=== PATIENT | male | born 1955 | race Caucasian/White ===

== ENCOUNTER 2016-07-28 11:00 | Inpatient (IN) ==
--- NOTE | 2016-07-28 12:04 | Emergency Department Note ---
Disposition Clinical Impression: DVT (deep venous thrombosis), AV fistula Disposition: Admitted As Inpatient Condition: Good Extremity Problem HPI - General Chief complaint: ED Extremity Problem,Nontraumatic Stated complaint: cramping R leg, concern for DVT Time Seen by Provider: 07/28/16 11:12 Source: patient Limitations: no limitations Nursing Notes Reviewed: Yes Vital Signs Reviewed: Yes - History of Present Illness Pain Scale: 7 - Related Data Home Medications Medication Instructions Recorded Confirmed Primidone [Mysoline] 250 mg PO QID 01/08/16 07/28/16 Warfarin [Coumadin] 22.5 mg PO SUTUTHSA 01/08/16 07/28/16 Atorvastatin [Lipitor] 40 mg PO HS 07/28/16 07/28/16 Warfarin [Coumadin] 15 mg PO MOWEFR 07/28/16 07/28/16 Allergies Allergy/AdvReac Type Severity Reaction Status Date / Time No Known Allergies Allergy Verified 02/06/15 09:48 Past Medical History - Past Medical History Medical history: Reports: DVT, hyperlipidemia, pulmonary embolus, seizures Surgical history: Reports: other Psychiatric history: Reports: no psych history - Social History Smoking Status: Never smoker Smokeless Tobacco Status: No Alcohol use: Reports: none Drug use: Reports: none Physical Exam - General Limitations: no limitations General appearance: alert Course Vital Signs Temperature 98.1 F 07/28/16 11:01 Pulse Rate 83 07/28/16 11:01 Respiratory Rate 20 07/28/16 11:01 Blood Pressure 148/84 07/28/16 11:01 O2 Sat by Pulse Oximetry 96 07/28/16 11:01 Temperature 97.8 F 07/28/16 18:47 Pulse Rate 75 07/28/16 18:47 Respiratory Rate 18 07/28/16 18:47 Blood Pressure 191/83 07/28/16 18:47 O2 Sat by Pulse Oximetry 96 07/28/16 18:47 Oxygen Delivery Oxygen Delivery Nasal Cannula Extremity Problem, Nontraumati - [facility] Narrative Medical decision making narrative: I examined this patient and my medical decision-making was reviewed with the INFRASTRUCTURE ADMINISTRATOR/PA/Advanced Practice Nurse/Resident Physician. I agree with the documented findings, disposition and treatment plan as described except to the extent set forth below. Patient presents today was seen by Dr. Graham and myself, high-grade his evaluation and management plan, supervised the care of the patient's stay. Patient's worried that he could have a repeat DVTs been having some pain in his leg he seems more like this going up into the groin area he said this happened after he been mowing. He denies any injuries to the area. He is currently on Coumadin workup to check his INR and then we will scan his leg to rule out a DVT. He is in agreement with this plan. 1224 hrs: Patient's INR is 3.1. Waiting on DVT study. 1418 hrs.: Called from vascular. They finish the DVT study and said he does have an acute DVT in the SFA, tech also noted pulsatile flow in the arterial region around the area he said which looks like it could be a AV fistula, however patient denies ever having any instrumentation or surgery or trauma to that area. Were going to speak with vascular about this, then most likely he will need to come in and see hospitalist his INR is therapeutic at this time. 07/28/16 14:27 - [id number] : 1955 Patient Age: 60 Right lower extremity venous ultrasound appears to show DVT of the SFV and Pop V. SVT of the LSV. Aloso noted is an abnormal finding of the proximal SFV. Appearance of an A/V fistula vs Collateral flow. Initialized on 07/28/16 14:27 - END OF NOTE 1435 hrs.: Spoke with Dr. Plaza who is on for vascular, he said that we will go ahead and bring the patient and discussed to take a look at the images, he recommended starting her on heparin in the [facility]. 1500 hrs.: Patient had EKG performed that showed a sinus rhythm rate of 78 QRS is 104 QTC is 406 has some flattening of the T waves in 23 and aVF, no signs of acute ischemia, compared this with an EKG had done in 2012 showed no changes except for rate. 1530 hrs.: Vascular surgery called back, Dr. Plaza, he suggested to get a CTA of that area which will get ordered for the floor. Start him on heparin, and he will see him. Consult him with admission to hospitalist. Patient updated - Lab Data Result diagrams: 07/28/16 11:55 07/28/16 11:55 Lab Results 07/28/16 07/28/16 07/28/16 Range/Units 11:55 11:55 11:55 WBC 9.9 (4.3-11.1) K/mcL RBC 5.28 (4.19-5.50) M/mcL Hgb 15.0 (12.9-16.9) g/dL Hct 46.7 (37.5-50.1) % MCV 88.4 (83.0-100.0) fL MCH 28.4 (28.0-33.3) pg MCHC 32.1 (31.6-35.5) g/dL RDW 13.4 (11.5-14.5) % Plt Count 268 (140-400) K/mcL MPV 11.7 (9.4-12.4) fL Immature Gran % 0.2 (0-4) % Seg Neutrophils % 75.2 % Lymphocytes % 13.3 % Monocytes % 9.0 % Eosinophils % 1.7 % Basophils % 0.6 % Neutrophils # 7.4 (1.6-8.9) K/mcL Lymphocytes # 1.3 (0.6-4.6) K/mcL Monocytes # 0.9 (0.0-1.3) K/mcL Eosinophils # 0.2 (0.0-0.6) K/mcL Basophils # 0.1 (0.0-0.2) K/mcL Immature Plt Fraction 8.0 H (1.1-6.1) % PT 34.7 H (9.4-12.1) Seconds INR 3.1 APTT (26.0-36.0) Seconds Heparin Anti-Xa, Unfract (0.30-0.70) IU/mL Sodium 139 (136-145) mEq/L Potassium 4.3 (3.5-4.5) mEq/L Chloride 103 (98-109) mEq/L Carbon Dioxide 28 (19-29) mEq/L BUN 21 (8-26) mg/dL Creatinine 1.04 (0.72-1.25) mg/dL Est GFR ( Amer) > 60 (> 60) Est GFR (Non-Af Amer) > 60 (> 60) BUN/Creatinine Ratio 20 (6-26) Glucose 103 H (70-99) mg/dL Calculated Osmolality 291 (280-300) Calcium 9.3 (8.6-10.8) mg/dL Magnesium 2.1 (1.6-2.6) mg/dL 07/28/16 Range/Units 16:52 WBC (4.3-11.1) K/mcL RBC (4.19-5.50) M/mcL Hgb (12.9-16.9) g/dL Hct (37.5-50.1) % MCV (83.0-100.0) fL MCH (28.0-33.3) pg MCHC (31.6-35.5) g/dL RDW (11.5-14.5) % Plt Count (140-400) K/mcL MPV (9.4-12.4) fL Immature Gran % (0-4) % Seg Neutrophils % % Lymphocytes % % Monocytes % % Eosinophils % % Basophils % % Neutrophils # (1.6-8.9) K/mcL Lymphocytes # (0.6-4.6) K/mcL Monocytes # (0.0-1.3) K/mcL Eosinophils # (0.0-0.6) K/mcL Basophils # (0.0-0.2) K/mcL Immature Plt Fraction (1.1-6.1) % PT (9.4-12.1) Seconds INR APTT > 360.0 H* (26.0-36.0) Seconds Heparin Anti-Xa, Unfract 1.15 H* (0.30-0.70) IU/mL Sodium (136-145) mEq/L Potassium (3.5-4.5) mEq/L Chloride (98-109) mEq/L Carbon Dioxide (19-29) mEq/L BUN (8-26) mg/dL Creatinine (0.72-1.25) mg/dL Est GFR ( Amer) (> 60) Est GFR (Non-Af Amer) (> 60) BUN/Creatinine Ratio (6-26) Glucose (70-99) mg/dL Calculated Osmolality (280-300) Calcium (8.6-10.8) mg/dL Magnesium (1.6-2.6) mg/dL
[2016-07-28 12:05] LABS: Basophils # 0.1 K/mcL (0.0-0.2); Basophils % 0.6 %; Eosinophils # 0.2 K/mcL (0.0-0.6); Eosinophils % 1.7 %; Hematocrit 46.7 % (37.5-50.1); Immature Granulocytes % 0.2 % (0-4); Lymphocytes # 1.3 K/mcL (0.6-4.6); Lymphocytes % 13.3 %; Mean Corpuscular HGB Conc 32.1 g/dL (31.6-35.5); Mean Corpuscular Hemoglobin 28.4 pg (28.0-33.3); Mean Corpuscular Volume 88.4 fL (83.0-100.0); Mean Platelet Volume 11.7 fL (9.4-12.4); Monocytes # 0.9 K/mcL (0.0-1.3); Neutrophils # 7.4 K/mcL (1.6-8.9); Platelet Count 268 K/mcL (140-400); Red Blood Count 5.28 M/mcL (4.19-5.50); Red Cell Distribution Width 13.4 % (11.5-14.5); Segmented Neutrophils % 75.2 %
[2016-07-28 12:16] LABS: BUN/Creatinine Ratio 20 (6-26); Blood Urea Nitrogen 21 mg/dL (8-26); Calcium 9.3 mg/dL (8.6-10.8); Carbon Dioxide 28 mEq/L (19-29); Chloride 103 mEq/L (98-109); Glucose 103 mg/dL (70-99); INR 3.1; Magnesium 2.1 mg/dL (1.6-2.6); Osmolality,Calculated 291 (280-300); Potassium 4.3 mEq/L (3.5-4.5); Prothrombin Time 34.7 Seconds (9.4-12.1); Sodium 139 mEq/L (136-145); eGFR For African Americans > 60 (> 60); eGFR For Non-African Americans > 60 (> 60)
[2016-07-28] MEDS ORDERED: *HR* Heparin 5,000 UNIT/ML VIAL IVP ONE (15:26)
[2016-07-28] MEDS ORDERED: *HR* Heparin 5,000 UNIT/ML VIAL IVP PRN ×2 (15:26)
--- NOTE | 2016-07-28 15:31 | Emergency Department Note ---
Disposition Clinical Impression: AV fistula DVT (deep venous thrombosis) Qualifiers: DVT location: lower extremity Affected thrombotic vein of extremity: unspecified vein of extremity Laterality: right Chronicity: acute Qualified Code (s): I82.401 - Acute embolism and thrombosis of unspecified deep veins of right lower extremity Disposition: Admitted As Inpatient Condition: Good Referrals: Eleonora Garcia CNP [Primary Care Provider] - Forms: ED Satisfaction Letter Extremity Problem HPI - General Chief complaint: ED Extremity Problem,Nontraumatic Stated complaint: cramping R leg, concern for DVT Time Seen by Provider: 07/28/16 11:12 Source: patient Limitations: no limitations Nursing Notes Reviewed: Yes Vital Signs Reviewed: Yes - History of Present Illness HPI Narrative: Patient presents today for evaluation of right leg pain and swelling. Patient has a history of PE and recurrent DVT. Patient on Coumadin. Patient was out mowing yesterday when he noticed pain in his right leg. No specific trauma. Pain is worse with movements. Tenderness over the medial serum aspect of the proximal leg. Increased swelling of the lower extremity to the right. No fever no chills no chest pain or shortness of breath or abdominal pain. Evaluate for anticoagulation and DVT. Pain Scale: 7 - Related Data Home Medications Medication Instructions Recorded Confirmed Primidone [Mysoline] 250 mg PO QID 01/08/16 07/28/16 Warfarin [Coumadin] 22.5 mg PO SUTUTHSA 01/08/16 07/28/16 Atorvastatin [Lipitor] 40 mg PO HS 07/28/16 07/28/16 Warfarin [Coumadin] 15 mg PO MOWEFR 07/28/16 07/28/16 Allergies Allergy/AdvReac Type Severity Reaction Status Date / Time No Known Allergies Allergy Verified 02/06/15 09:48 Review of Systems: CONSTITUTIONAL: No weight loss, fever, chills, weakness or fatigue. HEENT: Eyes: No visual changes. Ears, Nose, Throat: No hearing loss, difficulty talking or unable to swallow. SKIN: No rash or itching. CARDIOVASCULAR: No chest pain, chest pressure or chest discomfort. No palpitations or edema. RESPIRATORY: No shortness of breath, cough or sputum. GASTROINTESTINAL: No anorexia, nausea, vomiting or diarrhea. No abdominal pain or blood. GENITOURINARY: No burning on urination or hematuria. NEUROLOGICAL: No headache, dizziness, syncope, paralysis, ataxia, numbness or tingling in the extremities. No change in bowel or bladder control. MUSCULOSKELETAL: Leg pain and swelling Past Medical History - Past Medical History Medical history: Reports: DVT, hyperlipidemia, pulmonary embolus, seizures Surgical history: Reports: other Psychiatric history: Reports: no psych history - Social History Smoking Status: Never smoker Smokeless Tobacco Status: No Alcohol use: Reports: none Drug use: Reports: none Physical Exam General appearance: NAD, conversant Eyes: anicteric sclerae, moist conjunctivae; PERRL HENT: Atraumatic; oropharynx clear with moist mucous membranes and no mucosal ulcerations Neck: Normal inspection; Trachea midline; FROM, supple Lungs: CTA, with normal respiratory effort and no intercostal retractions CV: RRR, no MRGs Abdomen: Soft, non-tender; no rebound or gaurding : No evidence of hernia. No tenderness to palpation of scrotum or testicles. Cremasterics reflex present bilaterally. Extremities: No peripheral edema or extremity lymphadenopathy; poor hygiene Skin: Normal temperature; no rash, ulcers or lesion Psych: Appropriate mood and affect Neuro: alert and oriented to person, place and time - General Limitations: no limitations General appearance: alert Course - Reevaluation(s) Reevaluation #1: DVT with acute on chronic thrombus and concern for AV fistula. Discussed with Dr. Hubbard and Dr. Austin. Heparin ordered. CT a abdomen pelvis down through the middle thigh ordered and verified with client technologies analyst. - Consultations Consultation #1: Discussed with Dr. Price. The patient has an acute on chronic clot in the superficial femoral vein. Patient's anticoagulation is therapeutic so he recommends starting heparin. Recommend getting a CTA to further evaluate for AV fistula of femoral artery at this area secondary to abnormal pulsatile flow. Consultation #2: Discussed with Dr. Austin. Patient accepted for further evaluation as well as anticoagulation management and vascular surgery consult regarding fistula. CAT scan ordered and will need to be seen and evaluated by vascular surgery. Time: 15:50 Vital Signs Temperature 98.1 F 07/28/16 11:01 Pulse Rate 83 07/28/16 11:01 Respiratory Rate 20 07/28/16 11:01 Blood Pressure 148/84 07/28/16 11:01 O2 Sat by Pulse Oximetry 96 07/28/16 11:01 Temperature 98.1 F 07/28/16 11:01 Pulse Rate 73 07/28/16 15:05 Respiratory Rate 20 07/28/16 11:01 Blood Pressure 137/74 07/28/16 15:05 O2 Sat by Pulse Oximetry 99 07/28/16 15:05 Oxygen Delivery Oxygen Delivery Room Air Extremity Problem, Nontraumati - Lab Data Result diagrams: 07/28/16 11:55 07/28/16 11:55 Lab Results 07/28/16 07/28/16 07/28/16 Range/Units 11:55 11:55 11:55 WBC 9.9 (4.3-11.1) K/mcL RBC 5.28 (4.19-5.50) M/mcL Hgb 15.0 (12.9-16.9) g/dL Hct 46.7 (37.5-50.1) % MCV 88.4 (83.0-100.0) fL MCH 28.4 (28.0-33.3) pg MCHC 32.1 (31.6-35.5) g/dL RDW 13.4 (11.5-14.5) % Plt Count 268 (140-400) K/mcL MPV 11.7 (9.4-12.4) fL Immature Gran % 0.2 (0-4) % Seg Neutrophils % 75.2 % Lymphocytes % 13.3 % Monocytes % 9.0 % Eosinophils % 1.7 % Basophils % 0.6 % Neutrophils # 7.4 (1.6-8.9) K/mcL Lymphocytes # 1.3 (0.6-4.6) K/mcL Monocytes # 0.9 (0.0-1.3) K/mcL Eosinophils # 0.2 (0.0-0.6) K/mcL Basophils # 0.1 (0.0-0.2) K/mcL Immature Plt Fraction 8.0 H (1.1-6.1) % PT 34.7 H (9.4-12.1) Seconds INR 3.1 Sodium 139 (136-145) mEq/L Potassium 4.3 (3.5-4.5) mEq/L Chloride 103 (98-109) mEq/L Carbon Dioxide 28 (19-29) mEq/L BUN 21 (8-26) mg/dL Creatinine 1.04 (0.72-1.25) mg/dL Est GFR ( Amer) > 60 (> 60) Est GFR (Non-Af Amer) > 60 (> 60) BUN/Creatinine Ratio 20 (6-26) Glucose 103 H (70-99) mg/dL Calculated Osmolality 291 (280-300) Calcium 9.3 (8.6-10.8) mg/dL Magnesium 2.1 (1.6-2.6) mg/dL
--- NOTE | 2016-07-28 17:07 | Vascular/Endovasc Consult Note ---
Date of Encounter: 07/28/16 Time of Encounter: 16:50 Assessment and Plan (1) AV fistula Status: Suspected The patient underwent a venous duplex today. During the exam he was noted to have possible pulsatile flow in the femoral veins. Concern for an arteriovenous fistula has arisen. He reports that he had an IVC filter placed several years ago. He has been scheduled for a CTA to evaluate for a fistula. (2) DVT (deep venous thrombosis) Status: Acute The patient appears to have an acute on chronic right superficial femoral vein DVT. He is anticoagulated with coumadin. He has pain in the right groin and has been admitted for intravenous heparin. Qualifiers: DVT location: lower extremity Affected thrombotic vein of extremity: femoral Laterality: right Chronicity: acute Qualified Code(s): I82.411 - Acute embolism and thrombosis of right femoral vein (3) Essential hypertension Status: Chronic He was counseled regarding atherosclerotic risk factor reduction. (4) Mixed hyperlipidemia Status: Chronic - History of Present Illness Consult date: 07/31/16 Requesting physician: Loi Graham Consult reason: Deep vein thrombosis, arteriovenous fistula Chief complaint: Right groin pain History of present illness: Mr. Pierre is a 60 year old male with a history of a right lower extremity deep vein thrombosis who has been chronically anticoagulated with coumadin. The patient reports that he developed severe right groin pain yesterday while working in his yard. He reports that he went inside and rested. His symptoms decreased, but did not resolve, so he came to the ER. The patient underwent a venous duplex and was noted to have a acute on chronic right lower extremity DVT. He also was noted to have some pulsatility along the right superficial femoral vein and concern for a right lower extremity arteriovenous fistula arose. The patient reports that he has had an IVC filter placed via the right groin before. He denies any claudication, chest pain or shortness of breath. Past Med Surg Social Fam HX - Past Medical History Medical history: DVT, hyperlipidemia, pulmonary embolus, seizures Psychiatric history: no psych history - Past Surgical History Surgical History: other - Social History Smoking Status: Never smoker Smokeless Tobacco Status: No Alcohol use: none Drug use: none - Family History Mother Living Status: Still Living Age at : 92 Hx Family GI Disorders: Yes (Diverticulitis) Hx Family Musculoskeletal Disorders: Yes (broken hip) Father Living Status: Age at : 88 Cause of : cancer Hx Family Cancer: Yes (kidney cancer) Medications and Allergies Primidone [Mysoline] 250 mg PO QID 01/08/16 [History] Atorvastatin [Lipitor] 40 mg PO HS 07/28/16 [History] HYDROcodone/Acet 5/325 mg [[place] 5-325 mg] 1 tab PO Q6H PRN #12 tablet 07/30/16 [Rx] Rivaroxaban [Xarelto] 15 mg PO BID #42 tablet 07/30/16 [Rx] amLODIPine [Norvasc] 5 mg PO DAILY #30 tablet 07/30/16 [Rx] Allergies No Known Allergies Allergy (Verified 02/06/15 09:48) All Systems Review: A 10-system review of systems was performed and is negative for pertinent findings except as documented above in the HPI. Exam Vital Signs, Last 4 Hours Resp BP 07/28/16 16:32 18 137/74 General: Present: Conversant, No Apparent Distress HEENT: Present: Atraumatic, Normocephaly, Trachea midline, Pupils equal Neck: Absent: JVD, Lymphadenopathy, Left Carotid bruit, Right Carotid bruit Cardiac: Present: Reg Rate and Rhythm, Normal S1 and S2, No Murmur Lungs: Present: Normal Breath Sounds, No Wheeze, Rales, Rhonchi Neuro: Present: Alert and responsive, No focal deficits noted, Cranial nerves grossly intact, Motor nerves grossly intact, Sensory nerves grossly intact Abdomen: Present: Soft, Non-tender. Absent: Masses Vascular: Present: Normal capillary refill, Pulse, normal, Edema (trace right lower extremity), Color/Temperature (warm). Absent: Bruit, Clubbing, Cyanosis Skin: Present: No rashes noted on visualized skin. Absent: Wound/ulcer(s) Musculoskeletal: Present: No Chest Wall Tenderness Consult Discharge Plan - Plan Instructions: Deep Venous Thrombosis (DC), Chronic Hypertension (DC) Additional Instructions: Follow-up with primary care provider as scheduled. Follow-up with urology as scheduled. Follow-up with vascular in 2-3 weeks Referrals: Antony Luna MD [Partnered Physician] - 08/26/16 9:30 am Luis Plaza MD [Partnered Physician] - 08/13/16 2:00 pm Eleonora Garcia CNP [Primary Care Provider] - 08/07/16 3:00 pm Prescriptions: amLODIPine [Norvasc] 5 mg PO DAILY #30 tablet HYDROcodone/Acet 5/325 mg [[place] 5-325 mg] 1 tab PO Q6H PRN #12 tablet PRN Reason: Pain Rivaroxaban [Xarelto] 15 mg PO BID #42 tablet
[2016-07-28] MEDS ORDERED: Ondansetron 4 MG/2 ML VIAL IVP PRN (17:22)
[2016-07-28] MEDS ORDERED: Naloxone 0.4 MG/ML INJ IVP PRN (17:22)
[2016-07-28 18:27] LABS: Activated Partial Thrombo Time > 360.0 Seconds (26.0-36.0)
[2016-07-28] MEDS ORDERED: *HR* HYDROcodone/Acet 5/325 mg TABLET PO PRN (18:30)
--- NOTE | 2016-07-28 18:37 | Internal Med History&Physical ---
Date of Encounter: 07/28/16 Time of Encounter: 18:00 Assessment and Plan (1) DVT (deep venous thrombosis) Current visit: Yes Status: Acute INR was therapeutic at 3. Started on heparin drip. CTA does not show a fistula or aneurysm in R groin. Will most likely need heme consult for guidance in anticoagulation. Bedrest for now. Ramona for pain. Warfarin on hold at this time. Qualifiers: DVT location: lower extremity Affected thrombotic vein of extremity: femoral Laterality: right Chronicity: acute Qualified Code(s): I82.411 - Acute embolism and thrombosis of right femoral vein (2) Left renal mass Current visit: Yes Status: Acute CT shows mass in L kidney. Father from renal cancer. Will get MRI and based on results may need urology consult. (3) Hyperlipidemia Current visit: Yes Status: Chronic Continue Lipitor. Qualifiers: Hyperlipidemia type: mixed hyperlipidemia Qualified Code(s): E78.2 - Mixed hyperlipidemia (4) Seizure disorder Current visit: Yes Status: Chronic Has not had a seizure in 10 years. On Primidone. Seizure precautions. (5) Obesity (BMI 35.0-39.9 without comorbidity) Current visit: Yes Status: Chronic Chronic issue. Internal Medicine - H&P: HPI Chief complaint: R groin pain Admitted From: Emergency Dept Plans for Post Hospital Care: Home History of present illness: Mr. Pierre is a 60 year old male with history of multiple DVTs presented to ED with R groin pain. Pt has had prior DVT in R femoral but states that he was told it resolved (2011). He had associated PE at that time and had filter placed and removed about 5 months later. In 2014 he had DVT in R calf and has been on coumadin since that time. Yesterday he was mowing lawn when he noticed pain in R groin. Pain has progressed and now has swelling. No fever or chills. He is now having pain with ambulation and nothing has made it better. In ED he had ultrasound which showed acute on chronic DVT (despite INR of 3) and question of a femoral aneurysm. He was seen by vascular surgery and sent for CTA. No aneurysm present but has L renal mass (father had renal cell cancer). He has been admitted and is currently on heparin drip. His only complaint at this time is some pain in R groin area. Due to the significance of his DVT which has occurred while therapeutic on coumadin, recurrent nature of DVT and L renal mass he is deemed high risk for possible complications and issues with IV heparin and risk of clot migration. Past Med Surg Social Fam HX - Past Medical History Source: patient Medical history: DVT, hyperlipidemia, pulmonary embolus, seizures Psychiatric history: no psych history - Past Surgical History Surgical History: no surgical history, other - Social History Smoking Status: Never smoker Smokeless Tobacco Status: No Alcohol use: none Drug use: none Occupational status: unemployed Current living situation: Home - Independent Activity Level: Independent ambulation Recent Out of Country Travel Within the Last 8 Weeks: No Exposure or Possible Exposure to Illness During Travel: No - Family History Mother Living Status: Still Living Age at : 92 Hx Family GI Disorders: Yes (Diverticulitis) Hx Family Musculoskeletal Disorders: Yes (broken hip) Father Living Status: Age at : 88 Cause of : cancer Hx Family Cancer: Yes (kidney cancer) Internal Medicine - H&P: Meds Primidone [Mysoline] 250 mg PO QID 01/08/16 [History] Warfarin [Coumadin] 22.5 mg PO SUTUTHSA 01/08/16 [History] Atorvastatin [Lipitor] 40 mg PO HS 07/28/16 [History] Warfarin [Coumadin] 15 mg PO MOWEFR 07/28/16 [History] Allergies No Known Allergies Allergy (Verified 02/06/15 09:48) All Systems PM: A 10-system review of systems was performed and is negative for pertinent findings except as documented above in the HPI. - Constitutional Constitutional: no chills, no fever(s), no weight loss - EENT Eyes: no blurry vision, no change in vision, no pain Ears: no decreased hearing, no ear pain Nose, mouth and throat: no dysphagia, no epistaxis, no nasal congestion, no sinus pain - Cardiovascular Cardiovascular ROS IM: edema, no chest pain, no dyspnea, no dyspnea on exertion , no irregular heart rhythm - Respiratory Respiratory: no cough, no dyspnea, no hemoptysis, no dyspnea on exertion, no chest congestion - Gastrointestinal Gastrointestinal: no change in bowel habits, no constipation, no diarrhea, no dyspepsia, no hematemesis, no hematochezia, no melena - Genitourinary Genitourinary ROS male: no dysuria, no flank pain, no hematuria, no nocturia - Musculoskeletal Musculoskeletal ROS IM: arthralgias - Integumentary Integumentary IM: no erythema, no new lesions, no rash - Neurological Neurological ROS: convulsions, no confusion, no tremor(s) Additional comments: Last seizure 10 years ago. - Psychiatric Psychiatric: no abnormal sleep pattern, no confusion, no depression - Endocrine Endocrine IM: no cold intolerance, no heat intolerance - Hematologic/Lymphatic Hematologic/Lymphatic: as per HPI, no easy bleeding - Allergic/Immunologic Allergic/Immunologic: no itchy eyes, no lip swelling - Constitutional Vitals: Temp Pulse Resp BP Pulse Ox 98.1 F 73 18 137/74 99 07/28/16 11:01 07/28/16 15:05 07/28/16 16:32 07/28/16 16:32 07/28/16 15:05 General appearance: Present: A&O X 3, morbidly obese, pleasant, answers questions appropriately - Head Head exam: Present: atraumatic, normocephalic - Eye Eye exam: Present: EOMI, conjuntiva pink Pupils: Present: PERRL - ENT ENT exam: Present: mucous membranes moist - Neck Neck exam general surgery: Absent: lymphadenopathy, tenderness, nuchal rigidity - Respiratory Respiratory exam: Present: CTAB. Absent: rales, rhonchi, wheezes - Cardiovascular Cardiovascular exam: Present: RRR. Absent: +S4, systolic murmur, tachycardia - GI/Abdominal GI/Abdominal exam: Present: normal bowel sounds, soft. Absent: tenderness Additional comments: Obese - Extremities Exam Extremities exam: Present: tenderness, warm - Neurological Exam Neurological exam: Present: alert, oriented X3, no focal deficits - Psychiatric Psychiatric exam: Present: normal affect, normal mood - Skin Skin exam: Present: dry, warm. Absent: excoriation, rash Internal Med - H&P Results - Labs CBC & Chem 7: 07/28/16 11:55 07/28/16 11:55 - Diagnostic Studies CT scan - abdomen Status: image reviewed by me Additional comments: Reviewed to visualize cysts on bilateral kidneys. - VTE Reasons for not Prescribing Prophylaxis: Not indicated-Anticoagulated or INR therapeutic
[2016-07-28] MEDS ORDERED: Acetaminophen 325 MG TABLET PO PRN (18:57)
[2016-07-28 19:03] LABS: Heparin anti-factor XA UFH 1.15 IU/mL (0.30-0.70)
[2016-07-28] MEDS: Heparin 25,000 UNIT/500 ML D5W 25,000 UNIT/500 ML MLS IVC SCH (22:03)
[2016-07-29 04:29] LABS: Basophils # 0.1 K/mcL (0.0-0.2); Basophils % 0.5 %; Eosinophils # 0.3 K/mcL (0.0-0.6); Eosinophils % 2.6 %; Hematocrit 46.6 % (37.5-50.1); Hemoglobin 14.9 g/dL (12.9-16.9); Immature Granulocytes % 0.3 % (0-4); Lymphocytes # 1.9 K/mcL (0.6-4.6); Lymphocytes % 18.8 %; Mean Corpuscular Volume 90.8 fL (83.0-100.0); Mean Platelet Volume 12.5 fL (9.4-12.4); Monocytes # 0.9 K/mcL (0.0-1.3); Monocytes % 9.2 %; Neutrophils # 6.7 K/mcL (1.6-8.9); Platelet Count 259 K/mcL (140-400); Red Blood Count 5.13 M/mcL (4.19-5.50); Red Cell Distribution Width 13.7 % (11.5-14.5); Segmented Neutrophils % 68.6 %
[2016-07-29 04:39] LABS: INR 2.8; Prothrombin Time 30.6 Seconds (9.4-12.1)
[2016-07-29 04:44] LABS: Alanine Aminotransferase 61 Units/L (0-55); Albumin 3.4 g/dL (3.5-5.0); Albumin/Globulin Ratio 0.9 (1.1-2.2); Alkaline Phosphatase 99 Units/L (38-126); Aspartate Amino Transferase 74 Units/L (5-34); BUN/Creatinine Ratio 22 (6-26); Bilirubin,Total 0.5 mg/dL (0.2-1.2); Blood Urea Nitrogen 22 mg/dL (8-26); Calcium 8.9 mg/dL (8.6-10.8); Carbon Dioxide 29 mEq/L (19-29); Chloride 103 mEq/L (98-109); Globulin 3.9 g/dL (2.4-3.5); Glucose 102 mg/dL (70-99); Magnesium 2.5 mg/dL (1.6-2.6); Osmolality,Calculated 292 (280-300); Potassium 4.1 mEq/L (3.5-4.5); Sodium 139 mEq/L (136-145); Total Protein 7.3 g/dL (6.0-8.3); eGFR For African Americans > 60 (> 60); eGFR For Non-African Americans > 60 (> 60)
[2016-07-29 04:57] LABS: Activated Partial Thrombo Time 188.2 Seconds (26.0-36.0)
[2016-07-29 05:02] LABS: Heparin anti-factor XA UFH 0.59 IU/mL (0.30-0.70)
--- NOTE | 2016-07-29 11:13 | Electrocardiograph Report ---
[place] [id number] Test Date: 2016-07-28 Pat Name: Edward Pierre Department: 104 Room: 3B Gender: M J[employer]er: AM : 1955 Requested By: Radha Morel Order Number: [id number] Reading MD: Lou Owen Measurements Intervals [place] Rate: 77 P: 32 MT: 188 QRS: -11 QRSD: 104 T: 27 QT: 375 QTc: 406 Interpretive Statements SINUS RHYTHM NONSPECIFIC T-WAVE ABNORMALITY Electronically Signed On 07-29-2016 11:11:25 EDT by Lou Owen
[2016-07-29] MEDS: Heparin 25,000 UNIT/500 ML D5W 25,000 UNIT/500 ML MLS IVC SCH (14:02)
--- NOTE | 2016-07-29 16:16 | Urology - Consult Note ---
Date of Encounter: 07/29/16 Time of Encounter: 16:14 - Assessment and Plan (1) Left renal mass Current Visit: Yes Status: Acute Assessment and plan: No urgent need for surgical evaluation. We will have the patient follow-up with me in 3-4 weeks for discussion of options regarding left renal tumor. Urology CN:KAYLAH Consult date: 07/29/16 Reason for consult Urology: Other (left renal mass) Requesting physician: Radha Morel History of present illness: Edward is a 60-year-old male with a history of recent admission secondary to DVT even though he was therapeutic on Coumadin. Patient was found on CT scan followed by MRI to have a left intraparenchymal mass approximately 2 cm. Patient's father of renal cell carcinoma. Past Med Surg Social Fam HX - Past Medical History Medical history: DVT, hyperlipidemia, pulmonary embolus, seizures Psychiatric history: no psych history - Past Surgical History Surgical History: other - Social History Smoking Status: Never smoker Smokeless Tobacco Status: No Alcohol use: none Drug use: none - Family History Mother Living Status: Still Living Age at : 92 Hx Family GI Disorders: Yes (Diverticulitis) Hx Family Musculoskeletal Disorders: Yes (broken hip) Father Living Status: Age at : 88 Cause of : cancer Hx Family Cancer: Yes (kidney cancer) Medications and Allergies Primidone [Mysoline] 250 mg PO QID 01/08/16 [History] Warfarin [Coumadin] 22.5 mg PO SUTUTHSA 01/08/16 [History] Atorvastatin [Lipitor] 40 mg PO HS 07/28/16 [History] Warfarin [Coumadin] 15 mg PO MOWEFR 07/28/16 [History] Allergies No Known Allergies Allergy (Verified 02/06/15 09:48) Review of Systems - Constitutional no chills - EENT Nose, mouth and throat: no dizziness - Cardiovascular no chest pain - Respiratory no cough Exam Initial Vital Signs Temp Pulse Resp BP Pulse Ox 98.1 F 83 20 148/84 96 07/28/16 11:01 07/28/16 11:01 07/28/16 11:01 07/28/16 11:01 07/28/16 11:01 - General physical appearance Present: well developed - ENT Present: normal nares - Neck Present: no masses - Respiratory Present: normal respiratory effort - Cardiovascular Cardiovascular exam IM: RRR - Abdomen Abdomen: Present: soft Urology Results - Labs 07/29/16 03:57 07/29/16 03:57 Abnormal lab results MPV 12.5 fL (9.4-12.4) H 07/29/16 03:57 Immature Plt Fraction 8.0 % (1.1-6.1) H 07/28/16 11:55 PT 30.6 Seconds (9.4-12.1) H 07/29/16 03:57 Glucose 102 mg/dL (70-99) H 07/29/16 03:57 AST 74 Units/L (5-34) H 07/29/16 03:57 ALT 61 Units/L (0-55) H 07/29/16 03:57 Albumin 3.4 g/dL (3.5-5.0) L 07/29/16 03:57 Globulin 3.9 g/dL (2.4-3.5) H 07/29/16 03:57 Albumin/Globulin Ratio 0.9 (1.1-2.2) L 07/29/16 03:57 Diabetes panel 07/29/16 Range/Units 03:57 Sodium 139 (136-145) mEq/L Potassium 4.1 (3.5-4.5) mEq/L Chloride 103 (98-109) mEq/L Carbon Dioxide 29 (19-29) mEq/L BUN 22 (8-26) mg/dL Creatinine 1.01 (0.72-1.25) mg/dL Glucose 102 H (70-99) mg/dL Calcium 8.9 (8.6-10.8) mg/dL AST 74 H (5-34) Units/L ALT 61 H (0-55) Units/L Alkaline Phosphatase 99 (38-126) Units/L Albumin 3.4 L (3.5-5.0) g/dL Calcium panel 07/29/16 Range/Units 03:57 Calcium 8.9 (8.6-10.8) mg/dL Albumin 3.4 L (3.5-5.0) g/dL Pituitary panel 07/29/16 Range/Units 03:57 Sodium 139 (136-145) mEq/L Potassium 4.1 (3.5-4.5) mEq/L Chloride 103 (98-109) mEq/L Carbon Dioxide 29 (19-29) mEq/L BUN 22 (8-26) mg/dL Creatinine 1.01 (0.72-1.25) mg/dL Glucose 102 H (70-99) mg/dL Calcium 8.9 (8.6-10.8) mg/dL Adrenal panel 07/29/16 Range/Units 03:57 Sodium 139 (136-145) mEq/L Potassium 4.1 (3.5-4.5) mEq/L Chloride 103 (98-109) mEq/L Carbon Dioxide 29 (19-29) mEq/L BUN 22 (8-26) mg/dL Creatinine 1.01 (0.72-1.25) mg/dL Glucose 102 H (70-99) mg/dL Calcium 8.9 (8.6-10.8) mg/dL Total Bilirubin 0.5 (0.2-1.2) mg/dL AST 74 H (5-34) Units/L ALT 61 H (0-55) Units/L Alkaline Phosphatase 99 (38-126) Units/L Albumin 3.4 L (3.5-5.0) g/dL All other labs normal. - Imaging CT scan - abdomen: image reviewed CT scan - pelvis: image reviewed Consult Discharge Plan - Plan Referrals: Eleonora Garcia CNP [Primary Care Provider] - 08/07/16 3:00 pm
--- NOTE | 2016-07-29 16:50 | Internal Med Progress Note ---
Date of Encounter: 07/29/16 Time of Encounter: 10:15 - Assessment and plan (1) DVT (deep venous thrombosis) Current Visit: Yes Status: Acute Assessment and plan: Acute on chronic DVT noted to right superficial femoral vein despite being anticoagulated and therapeutic on Coumadin. Continue heparin drip. We will bring hematology on board, appreciate their recommendations concerning anticoagulation therapy. Vascular is also on board, Dr Plaza. Patient stating his pain is currently controlled. On examination, patient's feet are cool to touch with capillary refill proximally 6 seconds bilaterally. Pedal pulses however are strong. Of note, patient stating he is concerned because he is the primary caregiver what of his mother with whom he lives. Patient stating he does have a cousin that is taking care of his mother when he is in the hospital. Qualifiers: DVT location: lower extremity Affected thrombotic vein of extremity: femoral Laterality: right Chronicity: acute Qualified Code(s): I82.411 - Acute embolism and thrombosis of right femoral vein (2) AV fistula Current Visit: Yes Status: Suspected Assessment and plan: Vascular on board (3) Anticoagulated on Coumadin Current Visit: Yes Status: Chronic Assessment and plan: Therapeutic with INR today 2.8. Pharmacy to dose. We will trend. (4) HTN (hypertension) Current Visit: Yes Status: Acute Assessment and plan: Patient is not on antihypertensive medications at home. Patient has been hypertensive/borderline hypertensive throughout this admission, we will initiate amlodipine and monitor. (5) Left renal mass Current Visit: Yes Status: Acute Assessment and plan: Imaging consistent with left renal mass concerning for possible primary renal neoplasm. Renal function is normal. We will check urinalysis. Spoke to urology who have recommended outpatient follow-up in 3-4 weeks. Of note, patient stating his father of "kidney cancer." Patient states that his father was 88 years old when he was diagnosed and chose not to seek treatment. He states that he 3 weeks later. ITS Impressions Abdomen/Pelvis CTA 07/28/16 15:27 IMPRESSION: Question of a mass in the left kidney measuring 3 cm. MRI of the left kidney is recommended for further evaluation. Negative for right femoral artery aneurysm These results were sent to results communications to be called to a license caregiver D/ / Dany Zabala MD / Dany Zabala MD Interpreting Provider: Dany Zabala MD Abdomen MRI 07/28/16 18:56 IMPRESSION: 1. 3 cm lesion in the left upper kidney with component of peripheral enhancement. Underlying primary renal neoplasm cannot be excluded. D/ / 07/28/2016 21:22:16 Anuj Worthington MD / bcarter Interpreting Provider: Anuj Worthington MD (6) Seizure disorder Current Visit: Yes Status: Chronic Assessment and plan: No seizure-like episodes since admission. Continue primidone (7) Obesity (BMI 35.0-39.9 without comorbidity) Current Visit: Yes Status: Chronic - Subjective Interval history: Patient seen and examined. On examination, patient sitting upright in bed watching television. Patient stating his pain is currently controlled and attributes this to "doing nothing." He states he is eating and drinking well. - Constitutional Vitals: Temp Pulse Resp BP Pulse Ox 98.0 F 73 15 143/75 98 07/29/16 15:07 07/29/16 15:07 07/29/16 15:07 07/29/16 15:07 07/29/16 15:07 General appearance: Present: A&O X 3, pleasant, no acute distress, obese, answers questions appropriately - Head Head exam: Present: atraumatic, normocephalic - Eye Eye exam: Present: PERRL, conjuntiva pink, sclera anicteric Pupils: Present: PERRL - Neck Neck exam general surgery: Present: supple, trachea midline. Absent: lymphadenopathy - Respiratory Respiratory exam: Present: CTAB. Absent: accessory muscle use, rales, respiratory distress, rhonchi, wheezes - Cardiovascular Cardiovascular exam: Present: RRR, +S1, +S2. Absent: diastolic murmur, gallop, rubs, systolic murmur - GI/Abdominal GI/Abdominal exam: Present: normal bowel sounds, soft, no peritoneal signs. Absent: distended, tenderness - Extremities Exam Extremities exam: Present: cyanotic, joint swelling, mottling, pedal edema, warm , radial pulses palpable and symetrical. Absent: calf tenderness, normal capillary refill, normal inspection - Expanded Lower Extremities Exam Foot/Toe exam: Present: swelling. Absent: normal inspection Neuro vascular tendon exam: Present: abnormal cap refill, decreased fine/light touch, extremity cold to touch, pallor. Absent: no vascular compromise Gait: Present: not tested/not observed - Neurological Exam Neurological exam: Present: alert, CN II-XII intact, oriented X3, no focal deficits, strengths equal and symetr throughout. Absent: pronater drift, facial droop, speech deficit - Skin Skin exam: Present: dry, intact, normal color, warm Internal Medicine: Result - Labs CBC & Chem 7: 07/29/16 03:57 07/29/16 03:57 Labs: Short CBC 07/29/16 Range/Units 03:57 WBC 9.8 (4.3-11.1) K/mcL Hgb 14.9 (12.9-16.9) g/dL Hct 46.6 (37.5-50.1) % Plt Count 259 (140-400) K/mcL Neutrophils # 6.7 (1.6-8.9) K/mcL BMP 07/29/16 03:57 Sodium 139 Potassium 4.1 Chloride 103 Carbon Dioxide 29 BUN 22 Creatinine 1.01 Glucose 102 H Calcium 8.9 Liver Function 07/29/16 Range/Units 03:57 Total Bilirubin 0.5 (0.2-1.2) mg/dL AST 74 H (5-34) Units/L ALT 61 H (0-55) Units/L Alkaline Phosphatase 99 (38-126) Units/L Albumin 3.4 L (3.5-5.0) g/dL - ABG Interpretation ABG results: PT/INR, D-dimer PT 30.6 Seconds (9.4-12.1) H 07/29/16 03:57 - VTE Reasons for not Prescribing Prophylaxis: Not indicated-Anticoagulated or INR therapeutic Consult Discharge Plan - Plan Referrals: Antony Luna MD [Partnered Physician] - 08/26/16 9:30 am Eleonora Garcia CNP [Primary Care Provider] - 08/07/16 3:00 pm
--- NOTE | 2016-07-29 17:43 | Oncology Inp Consult Note ---
Date of Encounter: 07/30/16 Time of Encounter: 17:00 Assessment and Plan (1) DVT (deep venous thrombosis) Status: Acute Assessment and plan: Right superficial femoral vein-recurrent on therapeutic INR while on coumadin. Hx PE/DVT '12 has been on coumadin since?, s/p filter placement/removal. For halfway anticoagulation transition to xarelto. Start with 15mg BID then 20 daily dose. Risk benefits of bleeding vs recurrent thrombosis reviewed. Left kidney mass on CT/MRI imaging-intervention as an out patient, due to ac DVT needing anticoagulation. F/U as an outpatient in clinic. Discussed with medical staff Qualifiers: DVT location: lower extremity Affected thrombotic vein of extremity: femoral Laterality: right Chronicity: acute Qualified Code(s): I82.411 - Acute embolism and thrombosis of right femoral vein - Data of Consult Requesting Physician: Radha Rodríguez Primary Care Provider: Eleonora Garcia CNP - Consult Narrative Reason for consult: DVT, recurrent, kidney mass History of present illness: Mr. Pierre is a 60 year old male with medical history significant for deep venous thrombosis, history of PE, seizure disorder, obesity, status post a prior IVC filter placement, was on Coumadin with therapeutic INR was noted to have acute right superficial femoral vein thrombosis due to pain patient started heparin, there was a concern of AV fistula due to pulsatile femoral vein /prior filter and vascular surgery is being consulted. INR since admission has been from 2.8-3. Patient underwent abdomen and pelvis CT angiogram that did not show any arterial abnormalities there was a question of left kidney mass measuring 3 cm in size MRI of the kidney was recommended that showed a 3 cm left upper kidney mass with peripheral enhancement suggestive of renal neoplasm. Urology has been consulted to further evaluate the mass. Hematology consulted for further recommendations on anti-coagulation due to DVT on therapeutic INR with Coumadin. He denies pain since he is on heparin. He reports that his filter was removed yrs ago. Denies SOB/chest pain Past Med Surg Social Fam HX - Past Medical History Medical history: DVT, hyperlipidemia, pulmonary embolus, seizures Psychiatric history: no psych history - Past Surgical History Surgical History: other - Social History Smoking Status: Never smoker Smokeless Tobacco Status: No Alcohol use: none Drug use: none - Family History Mother Living Status: Still Living Age at : 92 Hx Family GI Disorders: Yes (Diverticulitis) Hx Family Musculoskeletal Disorders: Yes (broken hip) Father Living Status: Age at : 88 Cause of : cancer Hx Family Cancer: Yes (kidney cancer) Medications and Allergies Primidone [Mysoline] 250 mg PO QID 01/08/16 [History] Warfarin [Coumadin] 22.5 mg PO SUTUTHSA 01/08/16 [History] Atorvastatin [Lipitor] 40 mg PO HS 07/28/16 [History] Warfarin [Coumadin] 15 mg PO MOWEFR 07/28/16 [History] Allergies No Known Allergies Allergy (Verified 02/06/15 09:48) Review of systems: as in HPI otherwise neg Oncology - Exam - Constitutional Vitals: Temp Pulse Resp BP Pulse Ox 98.0 F 73 15 143/75 98 07/29/16 15:07 07/29/16 15:07 07/29/16 15:07 07/29/16 15:07 07/29/16 15:07 General appearance: obese - Head Head exam: Present: atraumatic - Eye Eye exam: Present: sclera anicteric - ENT ENT exam: Present: mucous membranes moist - Neck Neck exam: Present: normal inspection - Respiratory Respiratory exam: Present: CTAB - Cardiovascular Cardiovascular exam: Present: +S1, +S2 - GI/Abdominal GI/Abdominal exam: Present: normal bowel sounds, soft - Extremities Exam Extremities exam: Present: pedal edema - Neurological Exam Neurological exam: Present: alert, CN II-XII intact, oriented X3 - Psychiatric Psychiatric exam: Present: normal affect Oncology - Results - Labs Labs: Short CBC 07/29/16 Range/Units 03:57 WBC 9.8 (4.3-11.1) K/mcL Hgb 14.9 (12.9-16.9) g/dL Hct 46.6 (37.5-50.1) % Plt Count 259 (140-400) K/mcL Neutrophils # 6.7 (1.6-8.9) K/mcL BMP 07/29/16 03:57 Sodium 139 Potassium 4.1 Chloride 103 Carbon Dioxide 29 BUN 22 Creatinine 1.01 Glucose 102 H Calcium 8.9 Liver Function 07/29/16 Range/Units 03:57 Total Bilirubin 0.5 (0.2-1.2) mg/dL AST 74 H (5-34) Units/L ALT 61 H (0-55) Units/L Alkaline Phosphatase 99 (38-126) Units/L Albumin 3.4 L (3.5-5.0) g/dL - Imaging and Cardiology CT scan - abdomen Status: image reviewed by me Consult Discharge Plan - Plan Referrals: Antony Luna MD [Partnered Physician] - 08/26/16 9:30 am Eleonora Garcia CNP [Primary Care Provider] - 08/07/16 3:00 pm
[2016-07-29] MEDS: amLODIPine 5 MG TABLET PO SCH (18:52)
[2016-07-29 19:00] LABS: Activated Partial Thrombo Time > 360.0 Seconds (26.0-36.0)
[2016-07-29 19:16] LABS: Heparin anti-factor XA UFH 1.42 IU/mL (0.30-0.70)
[2016-07-29] MEDS: *HR* Rivaroxaban 15 MG TABLET PO SCH (19:58)
[2016-07-30 05:54] LABS: Bilirubin,Urine Negative (Negative); Blood,Urine Negative (Negative); Clarity,Urine Clear (Clear); Color,Urine Yellow (Yellow); Glucose,Urine (UA) Normal (Normal); Ketones,Urine Negative (Negative); Leukocyte Esterase,Urine Negative (Negative); Nitrite,Urine Negative (Negative); Protein,Urine Negative (Neg-Trace); Specific Gravity,Urine > 1.030 (1.010-1.025); Urobilinogen,Urine Normal (Normal)
--- NOTE | 2016-07-30 07:11 | Vascular/Endovas Progress Note ---
Date of Encounter: 07/30/16 Time of Encounter: 17:00 - Assessment and plan (1) AV fistula Status: Suspected The patient underwent a venous duplex which revealed a chronic right superficial femoral vein DVT with some acute findings as well. He has been admitted and is on heparin. His duplex was also concerning for a possible arteriovenous fistula. His CT scan does not reveal a significant arteriovenous fistula. However, he is noted to have bilateral renal cysts and a left renal mass. Urology is currently evaluating the patient. He may require an IVC filter due need for surgery. (2) DVT (deep venous thrombosis) Status: Acute The patient appears to have an acute on chronic right superficial femoral vein DVT. He is anticoagulated with coumadin. He has pain in the right groin and has been admitted for intravenous heparin. Qualifiers: DVT location: lower extremity Affected thrombotic vein of extremity: femoral Laterality: right Chronicity: acute Qualified Code(s): I82.411 - Acute embolism and thrombosis of right femoral vein - Subjective Interval history: The patient reports that his right groin pain has decreased today. He denies any acute issues. He denies chest pain or shortness of breath. Vital Signs, Last 4 Hours Temp Pulse Resp BP Pulse Ox 07/30/16 03:14 98.1 F 69 18 164/85 96 - Physical Examination General: Present: Conversant, No Apparent Distress HEENT: Present: Atraumatic, Pupils equal Neck: Absent: JVD, Tracheal deviation Cardiac: Present: Reg Rate and Rhythm, Normal S1 and S2 Lungs: Present: Normal Breath Sounds, No Wheeze, Rales, Rhonchi Neuro: Present: Alert and responsive, No focal deficits noted, Motor nerves grossly intact, Sensory nerves grossly intact Vascular: Present: Normal capillary refill, Pulse, normal, Edema (trace right lower extermity). Absent: Clubbing, Cyanosis Abdomen: Present: Soft, Non-tender Skin: Present: No rashes noted on visualized skin Musculoskeletal: Present: No Chest Wall Tenderness - VTE Reasons for not Prescribing Prophylaxis: Not indicated-Anticoagulated or INR therapeutic Results 07/29/16 03:57 07/29/16 03:57 Lab Results, Last 24 hours 07/29/16 07/29/16 11:29 17:31 APTT 30.1 D > 360.0 H* D - Imaging / Other Tests CT/CTA: report reviewed, image reviewed Consult Discharge Plan - Plan Instructions: Deep Venous Thrombosis (DC), Chronic Hypertension (DC) Additional Instructions: Follow-up with primary care provider as scheduled. Follow-up with urology as scheduled. Follow-up with vascular in 2-3 weeks Referrals: Antony Luna MD [Partnered Physician] - 08/26/16 9:30 am Luis Plaza MD [Partnered Physician] - 08/13/16 2:00 pm Eleonora Garcia CNP [Primary Care Provider] - 08/07/16 3:00 pm Prescriptions: amLODIPine [Norvasc] 5 mg PO DAILY #30 tablet HYDROcodone/Acet 5/325 mg [[place] 5-325 mg] 1 tab PO Q6H PRN #12 tablet PRN Reason: Pain Rivaroxaban [Xarelto] 15 mg PO BID #42 tablet
[2016-07-30 07:31] VITALS: BP 149/82
[2016-07-30] MEDS: *HR* Rivaroxaban 15 MG TABLET PO SCH (07:38)
[2016-07-30] MEDS: amLODIPine 5 MG TABLET PO SCH (07:38)
--- NOTE | 2016-07-30 09:59 | Discharge Summary ---
Date of Encounter: 07/30/16 Time of Encounter: 09:00 - Discharge Diagnosis (1) DVT (deep venous thrombosis) Priority: Primary Status: Acute Comments: Acute on chronic DVT noted to right superficial femoral vein despite being anticoagulated and therapeutic on Coumadin. Iniitally treated with heparin drip while admitted. Brought hematology on board who recommended stopping Coumadin and initiating Xarelto. Vascular was also onboard- followup outpatient. Qualifiers: DVT location: lower extremity Affected thrombotic vein of extremity: femoral Laterality: right Chronicity: acute Qualified Code(s): I82.411 - Acute embolism and thrombosis of right femoral vein (2) AV fistula Priority: Primary Status: Ruled-out (3) Anticoagulated on Coumadin Priority: Secondary Status: Chronic (4) HTN (hypertension) Priority: Primary Status: Acute Comments: Patient is not on antihypertensive medications at home. Patient has been hypertensive/borderline hypertensive throughout this admission so amlodipine was added to his regimen. BP improved at time of discharge. Recommend daily BP checks at home, keeping a log, and following up outpatient. (5) Left renal mass Priority: Primary Status: Acute Comments: Imaging consistent with left renal mass concerning for possible primary renal neoplasm. Renal function is normal. Urinalysis unremarkable. Spoke to urology who have recommended outpatient follow-up in 3-4 weeks. Of note, patient stating his father of "kidney cancer." Patient states that his father was 88 years old when he was diagnosed and chose not to seek treatment. He states that he 3 weeks later. ITS Impressions Abdomen/Pelvis CTA 07/28/16 15:27 IMPRESSION: Question of a mass in the left kidney measuring 3 cm. MRI of the left kidney is recommended for further evaluation. Negative for right femoral artery aneurysm These results were sent to results communications to be called to a license caregiver D/ / Dany Zabala MD / Dany Zabala MD Interpreting Provider: Dany Zabala MD Abdomen MRI 07/28/16 18:56 IMPRESSION: 1. 3 cm lesion in the left upper kidney with component of peripheral enhancement. Underlying primary renal neoplasm cannot be excluded. D/ / 07/28/2016 21:22:16 Anuj Worthington MD / jim Interpreting Provider: Anuj Worthington MD (6) Seizure disorder Priority: Secondary Status: Chronic Comments: no seizure like activity while admitted. Continue primidone (7) Obesity (BMI 35.0-39.9 without comorbidity) Priority: Secondary Status: Chronic - Discharge Medications Prescriptions: amLODIPine [Norvasc] 5 mg PO DAILY #30 tablet HYDROcodone/Acet 5/325 mg [[place] 5-325 mg] 1 tab PO Q6H PRN #12 tablet PRN Reason: Pain Rivaroxaban [Xarelto] 15 mg PO BID #42 tablet Home Medications: Primidone [Mysoline] 250 mg PO QID 01/08/16 [History] Atorvastatin [Lipitor] 40 mg PO HS 07/28/16 [History] HYDROcodone/Acet 5/325 mg [[place] 5-325 mg] 1 tab PO Q6H PRN #12 tablet 07/30/16 [Rx] Rivaroxaban [Xarelto] 15 mg PO BID #42 tablet 07/30/16 [Rx] amLODIPine [Norvasc] 5 mg PO DAILY #30 tablet 07/30/16 [Rx] Allergies/Adverse Reactions: Allergies No Known Allergies Allergy (Verified 02/06/15 09:48) Procedures/tests Complete & Pending: Procedures Performed prior 72 hours Category Date Time Status ECG 12 lead ECG [ECG] Routine Y 07/28/16 11:18 Completed Date of admission: 07/28/16 19:13 Primary care physician: Eleonora Garcia CNP Consults: 07/29/16 08:35 Consult to Urology [CONS] Routine Consulting Provider: Urology Susana Reason for Consult: possible primary left renal neoplasm. new. here for R groin pain/DVTs Time Notified: 08:36 Call Completed: Yes 07/29/16 16:41 Consult to Oncology Hematology [CONS] Routine Consulting Provider: Dago Banegas Jr Reason for Consult: Patient with hx multiple DVTs/PE. Therapeutic on Coumadin but has another new DVT. currently on heparin gtt. Please advise. Vascular onboard too. Also, new mass to kidney- following up outpatient with Urology. Time Notified: 16:44 Call Completed: Yes 07/29/16 18:09 Consult to Outsole Paraffiner [CONS] Routine Reason for SW Consult: want to start xarelto. likely dc tomorrow (07/30) Discharging clinician: Radha Morel Anticipated date of discharge: 07/30/16 - Patient Status Disposition: Home, Self-Care Condition: Good Functional capacity at discharge: independent ambulation Overall status at discharge: patient is back to baseline - Discharge Instructions Follow Up With: Antony Luna MD [Partnered Physician] - 08/26/16 9:30 am Eleonora Garcia CNP [Primary Care Provider] - 08/07/16 3:00 pm Luis Plaza MD [Partnered Physician] - Additional Instructions: Follow-up with primary care provider as scheduled. Follow-up with urology as scheduled. Follow-up with vascular in 2-3 weeks - Diet and Activity Activity: increase activity as tolerated Diet: low salt diet Hospital course: Mr. Pierre is a 60 year old male with past medical history of multiple DVTs, history of PE on Coumadin, seizure disorder. Patient presented to the emergency room for chief complaint of right-sided groin pain. Patient had a prior DVT to his right from oral but was told it was resolved for years prior to presentation. He also had a filter in place that was removed. He had another DVT to his right calf in 2014 and had been on Coumadin since. Patient stating he was mowing the lawn when he started to notice right groin pain. The pain progressed and then his leg started to swell. He denied fever or chills. Ultrasound in the emergency department revealed acute on chronic DVT despite him being therapeutic on Coumadin. There is also question of a possible from oral aneurysm and vascular surgery was brought on board. Patient was started on a heparin drip and then admitted to the hospitalist service for further evaluation and management. Abdominal pelvic CTA with incidental finding of a left kidney mass and was negative for a femoral artery aneurysm. Hematology was brought on board as the patient sustained another DVT while therapeutic on Coumadin and the decision was made to stop his Coumadin and start him on Xarelto. Urology was brought on board for the renal mass and cleared him for outpatient follow-up in 3-4 weeks. Renal functioning was normal and urinalysis was unremarkable. Of note, patient stating his father of kidney cancer at the age of 88. Patient was also noted to be hypertensive throughout this admission. Patient is not on any antihypertensive medications at home and she was started on amlodipine and blood pressure improved prior to disposition. He was instructed to check his blood pressure daily at home and keep a log for his primary care team. Of note, patient stating his pain was controlled throughout this admission and he did not use any pain medication. He stated that his leg was painful with ambulation and movement so he was sent home with a short supply of pain medication. He was discharged home in stable condition with close outpatient follow-up recommended. Also of note, he was started on Xarelto 15mg BID for 21 days- he will need to see an outpatient provider prior to 3 weeks out to transition to 20mg daily. ITS Impressions Abdomen/Pelvis CTA 07/28/16 15:27 IMPRESSION: Question of a mass in the left kidney measuring 3 cm. MRI of the left kidney is recommended for further evaluation. Negative for right femoral artery aneurysm These results were sent to results communications to be called to a license caregiver D/ / Dany Zabala MD / Dany Zabala MD Interpreting Provider: Dany Zabala MD Abdomen MRI 07/28/16 18:56 IMPRESSION: 1. 3 cm lesion in the left upper kidney with component of peripheral enhancement. Underlying primary renal neoplasm cannot be excluded. D/ / 07/28/2016 21:22:16 Anuj Worthington MD / jim Interpreting Provider: Anuj Worthington MD - Time Spent with Patient Total time spent providing and/or coordinating discharge services: - Constitutional Vitals: Temp Pulse Resp BP Pulse Ox 97.6 F 67 18 149/82 95 07/30/16 07:30 07/30/16 07:30 07/30/16 07:30 07/30/16 07:30 07/30/16 07:38 General appearance: Present: A&O X 3, pleasant, no acute distress, obese, answers questions appropriately - Head Head exam: Present: atraumatic, normocephalic - Eye Eye exam: Present: PERRL, conjuntiva pink, sclera anicteric Pupils: Present: PERRL - Neck Neck exam general surgery: Present: supple, trachea midline. Absent: lymphadenopathy - Respiratory Respiratory exam: Present: CTAB. Absent: accessory muscle use, rales, respiratory distress, rhonchi, wheezes - Cardiovascular Cardiovascular exam: Present: RRR, +S1, +S2. Absent: diastolic murmur, gallop, rubs, systolic murmur - GI/Abdominal GI/Abdominal exam: Present: normal bowel sounds, soft, no peritoneal signs. Absent: distended, tenderness - Extremities Exam Extremities exam: Present: pedal edema, warm, radial pulses palpable and symetrical. Absent: calf tenderness, cyanotic, normal capillary refill - Expanded Lower Extremities Exam Lower Leg exam: Absent: normal inspection Ankle exam: Absent: normal inspection Foot/Toe exam: Absent: normal inspection Neuro vascular tendon exam: Present: abnormal cap refill, decreased fine/light touch, extremity cold to touch. Absent: no vascular compromise - Neurological Exam Neurological exam: Present: alert, CN II-XII intact, oriented X3, no focal deficits, strengths equal and symetr throughout. Absent: pronater drift, facial droop, speech deficit - Skin Skin exam: Present: dry, intact, normal color, warm - VTE Reasons for not Prescribing Prophylaxis: Not indicated-Anticoagulated or INR therapeutic
--- NOTE | 2016-07-30 18:05 | Venous Imaging Report ---
LE Venous Duplex Patient Name:Edward Pierre Order Number:[id number] Procedure Date:07/28/2016 Date:1955ge:60 yrs Gender:Male Location:[facility] Room #: ER4 Inseminator:Finn Meza RDCS Referring MD:Loi Graham DO juvenile justice specialist:Eleonora Garcia, PLATFORM MATERIAL HANDLER MANAGER Reading MD:Mick Calixto MD , FACS Primary Indications:Pain and swelling Secondary Indications: Risk Factors Yes/No Anticoagulants Yes Hx of DVT Yes Winsome Filter Yes Impressions: Lower extremity abnormal deep exam: right superficial femoral vein demonstrates acute thrombosis. Lower extremity abnormal superficial exam: right lesser saphenous vein demonstrates acute thrombosis. Lower extremity abnormal deep exam: right popliteal vein demonstrates chronic thrombosis. Left lower extremity: normal contralateral exam. Recommendations: After imaging the patient returned to their room. Note abnormal flow at proximal SFV level. Possible A/V fistula d/t what appears to be pusitile flow within the thrombus vs collateral flow. Critical findings reported to Dr. Salinas by phone by Finn Meza RDCS. Findings Venous Duplex Results: Right: Venous imaging of the lower extremity reveals full patency and normal vessel compressibility of the right posterior tibial, right peroneal and right great saphenous. Doppler signals in the evaluated veins were normal. The right distal iliac demonstrates a compressible vein. Flow was pulsatile and it did augment. The right common femoral demonstrates a compressible vein. Flow was pulsatile and it did augment. There is a chronic partially occlusive thrombus seen in the right prox superficial femoral. It demonstrates a partially compressible vein. Flow was pulsatile and it did augment. The right popliteal demonstrates a partially compressible vein. Flow was phasic and it did augment. There is an acute occlusive thrombus seen in the right lesser saphenous. It demonstrates an incompressible vein. Flow was absent and it did not augment. There is an acute occlusive thrombus seen in the right mid superficial femoral. It demonstrates an incompressible vein. Flow was absent and it did not augment. Abnormal flow in proximal SFV. Left: Venous imaging of the lower extremity reveals full patency and normal vessel compressibility of the left common femoral. Doppler signals in the evaluated veins were normal. Prior Study: No prior study available for comparison. Lower Extremity Venous Duplex Side Vein Compress Spontaneous Flow Augment Diameter (cm) Depth (cm) Right Distal Iliac Normal yes Pulsatile yes Right Common Femoral Normal yes Pulsatile yes Right Prox Superficial Femoral Partial no Pulsatile yes Right Popliteal Partial yes Phasic yes Right Posterior Tibial Normal Yes Phasic Yes Right Peroneal Normal Yes Phasic Yes Right Great Saphenous Normal Yes Phasic Yes Right Lesser Saphenous None no Absent no Left Common Femoral Normal Yes Phasic Yes Right Mid Superficial Femoral None no Absent no Updated by Mick Calixto MD, FACS on 07/30/2016 6:00:29 PM Mick Calixto MD electronically signed on 07/30/2016 6:00:48 PM with status of Final
== END 2016-07-30 13:00 | disposition home or self-care (01) | DRG 197 ==
LOC: EMEROO 11:00 → 3BNU 11:00 → SUATTDRO 19:13
PROVIDERS: ADMIT Internal Medicine; ATTEND Nurse Practitioner Family

== ENCOUNTER 2017-05-29 11:19 | Inpatient (IN) ==
[2017-05-29 12:13] LABS: Basophils % 0.2 %; Hematocrit 45.1 % (37.5-50.1); Hemoglobin 15.1 g/dL (12.9-16.9); Immature Granulocytes % 0.5 % (0-4); Lymphocytes # 0.9 K/mcL (0.6-4.6); Lymphocytes % 8.5 %; Mean Corpuscular HGB Conc 33.5 g/dL (31.6-35.5); Mean Corpuscular Volume 83.5 fL (83.0-100.0); Mean Platelet Volume 11.7 fL (9.4-12.4); Monocytes # 1.2 K/mcL (0.0-1.3); Monocytes % 10.6 %; Neutrophils # 8.9 K/mcL (1.6-8.9); Platelet Count 261 K/mcL (140-400); Red Cell Distribution Width 13.9 % (11.5-14.5); Segmented Neutrophils % 80.2 %
[2017-05-29 12:44] LABS: BUN/Creatinine Ratio 20 (6-26); Blood Urea Nitrogen 21 mg/dL (8-23); Calcium 8.8 mg/dL (8.6-10.3); Carbon Dioxide 21 mEq/L (23-29); Chloride 96 mEq/L (98-107); Glucose 109 mg/dL (70-105); Osmolality,Calculated 268 (280-300); Potassium 3.9 mEq/L (3.5-5.1); Sodium 127 mEq/L (136-145); eGFR For African Americans > 60 (> 60); eGFR For Non-African Americans > 60 (> 60)
[2017-05-29 12:51] LABS: Troponin I 0.11 ng/mL (< 0.04)
[2017-05-29] MEDS ORDERED: Isovue-370 500 ML INFUS..BTL IV ONE (15:09)
--- NOTE | 2017-05-29 15:43 | Emergency Department Note ---
Disposition Clinical Impression: Cough, Elevated troponin Dyspnea Qualifiers: Dyspnea type: unspecified Qualified Code(s): R06.00 - Dyspnea, unspecified Disposition: Admitted As Inpatient Condition: Fair Time of Disposition: 00:29 General Adult HPI - General Chief complaint: ED Shortness of Breath/Dyspnea Stated complaint: "coughing up blood" Time Seen by Provider: 05/29/17 14:57 Source: patient Limitations: no limitations Nursing Notes Reviewed: Yes Vital Signs Reviewed: Yes - History of Present Illness HPI Narrative: Mr. Pierre, a 61-year-old male, presents from home for evaluation of productive cough onset 3 days ago. He now has scant streaks of blood with cough and subjective fever. Left-sided sharp stabbing chest pain present with cough only. Is associated mild dyspnea with exertion. Patient history of DVT with chronic right lower extremity swelling, history of PE, currently anticoagulant Xarelto (he has been compliant and has not missed any doses). His failed other anticoagulants. Patient states he did have a Winsome filter however it was removed. She notes his symptoms today are different from when he had a PE. No history of ACS and no stent placement. ROS: positive: As above Negative: Chills, nausea, vomiting, unusual back pain, headache, abdominal pain , changes in bowel or bladder habits, numbness or tingling Pain Scale: 0 - Related Data Home Medications Medication Instructions Recorded Confirmed Primidone [Mysoline] 250 mg PO QID 01/08/16 05/29/17 Atorvastatin [Lipitor] 40 mg PO HS 07/28/16 05/29/17 Rivaroxaban [Xarelto] 20 mg PO DAILY 10/14/16 05/29/17 Previous Rx's Medication Instructions Recorded amLODIPine [Norvasc] 5 mg PO DAILY #30 tablet 07/30/16 Allergies Allergy/AdvReac Type Severity Reaction Status Date / Time No Known Allergies Allergy Verified 08/12/16 10:04 All systems ED: reviewed and negative except as stated. Review of Systems: As Per HPI Past Medical History - Past Medical History Medical history: Reports: DVT, hyperlipidemia, hypertension, pulmonary embolus, seizures Surgical history: Reports: other Psychiatric history: Reports: no psych history - Social History Smoking Status: Former smoker Smokeless Tobacco Status: No Alcohol use: Reports: none Drug use: Reports: none Physical Exam Vital Signs Reviewed General: Patient is alert, oriented, and in no acute distress. Head: atraumatic, normocephalic Eye: normal appearance, PERRL, EOMI, no scleral icterus, no conjunctival injection ENT: mucous membranes moist, normal external ear exam Neck: normal inspection, trachea midline, full ROM Chest: normal inspection, symmetric chest rise Respiratory: Poor respiratory effort. Bilateral breath sounds are diminished globally without wheezing, crackles, or rhonchi. Cardiovascular: Regular rate and rhythm. No clicks, rubs, gallops, or murmors. Normal heart sounds. Abdomen: Obese. Bowel sounds present normoactive x-4 quadrants. Abdomen is soft, nondistended, and nontender. No guarding or rebound. No organomegaly noted. Musculoskeletal: Spontaneously moving all extremities. Skin: warm, dry, intact. Neuro: Alert and oriented x4. Sensation light touch intact. Psych: Patient's affect is appropriate for situation. - General Limitations: no limitations General appearance: alert, in no apparent distress Course Course Narrative: EKG dated 05/29/17 at 11:59 interpreted as sinus rhythm with a rate of 89. Intervals. Left axis. Incomplete right bundle branch block. Nonspecific ST-T changes. Compared to previous dated 04/16/2017 showing no acute ischemic changes in comparison. During his stay, patient has not had an episode of hemoptysis or blood-streaked sputum. Chest x-ray shows no acute cardial coronary process CTA shows a "tiny" filling defect in the posterior basal right lower lobe. Patient is already on Xarelto. Serum hematology is unremarkable. Serum chemistries concerning for elevated troponin 0.11. Clinically suspect demand ischemia given his dyspnea. Discussed the above the patient. He agrees to admission. I discussed the patient with the admitting hospitalist who agrees to accept the patient for continued evaluation and management. Chest X-Ray 05/29/17 11:33 IMPRESSION: Mild cardiomegaly without evidence of acute cardiopulmonary process. D/ / 05/29/2017 12:57:45 Artie Alva MD / agapito Interpreting Provider: Artie Alva MD Chest CTA 05/29/17 15:09 IMPRESSION: 1. Tiny filling defect in the posterior basal right lower lobe subsegmental pulmonary arterial branch consistent with acute pulmonary embolism. 2. There are few scattered mostly subpleural noncalcified parenchymal nodules measuring up to 5 mm which appear fairly stable compared to 2012 but better demonstrated on current exam. Benign etiology therefore most likely. D/ / Altaf Cha MD / Altaf Cha MD Interpreting Provider: Altaf Cha MD Vital Signs Temperature 100.4 F H 05/29/17 11:29 Pulse Rate 90 05/29/17 11:29 Respiratory Rate 18 05/29/17 11:29 Blood Pressure 125/73 05/29/17 11:29 O2 Sat by Pulse Oximetry 95 05/29/17 11:29 Temperature 98.2 F 05/29/17 22:14 Pulse Rate 71 05/29/17 22:14 Respiratory Rate 18 05/29/17 22:14 Blood Pressure 175/83 05/29/17 22:14 O2 Sat by Pulse Oximetry 99 05/29/17 22:14 Oxygen Delivery Oxygen Delivery Room Air Medical Decision Making - Lab Data Result diagrams: 05/29/17 12:00 05/29/17 11:33 Lab Results 05/29/17 05/29/17 05/29/17 Range/Units 11:33 12:00 12:00 WBC 11.1 (4.3-11.1) K/mcL RBC 5.40 (4.19-5.50) M/mcL Hgb 15.1 (12.9-16.9) g/dL Hct 45.1 (37.5-50.1) % MCV 83.5 (83.0-100.0) fL MCH 28.0 (28.0-33.3) pg MCHC 33.5 (31.6-35.5) g/dL RDW 13.9 (11.5-14.5) % Plt Count 261 (140-400) K/mcL MPV 11.7 (9.4-12.4) fL Immature Gran % 0.5 (0-4) % Seg Neutrophils % 80.2 % Lymphocytes % 8.5 % Monocytes % 10.6 % Eosinophils % 0.0 % Basophils % 0.2 % Neutrophils # 8.9 (1.6-8.9) K/mcL Lymphocytes # 0.9 (0.6-4.6) K/mcL Monocytes # 1.2 (0.0-1.3) K/mcL Eosinophils # 0.0 (0.0-0.6) K/mcL Basophils # 0.0 (0.0-0.2) K/mcL PT (9.4-12.1) Seconds INR Sodium 127 L (136-145) mEq/L Potassium 3.9 (3.5-5.1) mEq/L Chloride 96 L (98-107) mEq/L Carbon Dioxide 21 L (23-29) mEq/L BUN 21 (8-23) mg/dL Creatinine 1.06 (0.70-1.30) mg/dL Est GFR ( Amer) > 60 (> 60) Est GFR (Non-Af Amer) > 60 (> 60) BUN/Creatinine Ratio 20 (6-26) Glucose 109 H (70-105) mg/dL Calculated Osmolality 268 L (280-300) Lactic Acid (0.5-2.2) mmol/L Calcium 8.8 (8.6-10.3) mg/dL Troponin I 0.11 H* (< 0.04) ng/mL B-Natriuretic Peptide 217 H (Less than 100) pg/mL Specimen Rejected 05/29/17 05/29/17 05/29/17 Range/Units 13:10 13:33 15:54 WBC (4.3-11.1) K/mcL RBC (4.19-5.50) M/mcL Hgb (12.9-16.9) g/dL Hct (37.5-50.1) % MCV (83.0-100.0) fL MCH (28.0-33.3) pg MCHC (31.6-35.5) g/dL RDW (11.5-14.5) % Plt Count (140-400) K/mcL MPV (9.4-12.4) fL Immature Gran % (0-4) % Seg Neutrophils % % Lymphocytes % % Monocytes % % Eosinophils % % Basophils % % Neutrophils # (1.6-8.9) K/mcL Lymphocytes # (0.6-4.6) K/mcL Monocytes # (0.0-1.3) K/mcL Eosinophils # (0.0-0.6) K/mcL Basophils # (0.0-0.2) K/mcL PT 15.7 H (9.4-12.1) Seconds INR 1.4 Sodium (136-145) mEq/L Potassium (3.5-5.1) mEq/L Chloride (98-107) mEq/L Carbon Dioxide (23-29) mEq/L BUN (8-23) mg/dL Creatinine (0.70-1.30) mg/dL Est GFR ( Amer) (> 60) Est GFR (Non-Af Amer) (> 60) BUN/Creatinine Ratio (6-26) Glucose (70-105) mg/dL Calculated Osmolality (280-300) Lactic Acid 1.0 (0.5-2.2) mmol/L Calcium (8.6-10.3) mg/dL Troponin I (< 0.04) ng/mL B-Natriuretic Peptide (Less than 100) pg/mL Specimen Rejected Hemolyzed
[2017-05-29] MEDS ORDERED: Acetaminophen 325 MG TABLET PO ONE (15:46)
--- NOTE | 2017-05-29 15:47 | Emergency Department Note ---
START Narrative - START START: I examined this patient and my medical decision-making was reviewed with the Resident Physician. I agree with the documented findings, disposition and treatment plan as described except to the extent set forth below. 61-year-old male presents emergency room for cough and chest pain. States over this cough sputum has been blood tinged. History of PE in the past. He is currently on Xarelto. He has failed other anticoagulants with Coumadin throwing multiple DVTs in the past. He follows with hematology at the hospital. Work him up for PE again. We will do a CTA chest.
[2017-05-29 16:15] LABS: INR 1.4; Prothrombin Time 15.7 Seconds (9.4-12.1)
[2017-05-29] MEDS ORDERED: Naloxone 0.4 MG/ML INJ IVP PRN (20:49)
[2017-05-29] MEDS ORDERED: Acetaminophen 325 MG TABLET PO PRN (20:49)
[2017-05-29] MEDS ORDERED: Azithromycin 500 MG in D5% in Water 250 ML IVPB SCH (21:00)
[2017-05-29] MEDS: 0.9 % Sodium Chloride 1,000 ML IVC SCH (22:49)
--- NOTE | 2017-05-30 02:24 | Internal Med History&Physical ---
Date of Encounter: 05/29/17 Time of Encounter: 20:00 Internal Medicine - H&P: HPI Chief complaint: Hemoptysis Admitted From: Home Plans for Post Hospital Care: Home History of present illness: Mr. Pierre is a 61 year old male presented to ER for hemoptysis. Past medical history is significant for DVT and PE on xarelto. Patient said she has cough with yellowish sputum for about the 3 days. With low fever. With mild shortness of breath. Patient denies chest pain. Since today, he noticed trace of blood mixed with sputum. No large amount of bloody hemoptysis. Patient possibly has 4 times of blood mixed sputum. Otherwise he is fine. In the emergency room, CTA has been done and has showed small acute PE , no pneumonia or neoplasm shown on CTA. Patient was admitted for further management. Past Med Surg Social Fam HX - Past Medical History Medical history: DVT, hyperlipidemia, hypertension, pulmonary embolus, seizures Psychiatric history: no psych history - Past Surgical History Surgical History: other - Social History Smoking Status: Former smoker Smokeless Tobacco Status: No Alcohol use: none Drug use: none - Family History Mother Adopted: No Living Status: Still Living Hx Family Cardiac Disorders: Yes Hx Family GI Disorders: Yes (Diverticulitis) Father Living Status: Hx Family Cancer: Yes (kidney cancer) Internal Medicine - H&P: Meds Primidone [Mysoline] 250 mg PO QID 01/08/16 [History] Atorvastatin [Lipitor] 40 mg PO HS 07/28/16 [History] amLODIPine [Norvasc] 5 mg PO DAILY #30 tablet 07/30/16 [Rx] Rivaroxaban [Xarelto] 20 mg PO DAILY 10/14/16 [History] 3 Allergy/AdvReac Type Severity Reaction Status Date / Time No Known Allergies Allergy Verified 08/12/16 10:04 All Systems PM: A 10-system review of systems was performed and is negative for pertinent findings except as documented above in the HPI. - Constitutional Vitals: Temp Pulse Resp BP Pulse Ox 98.2 F 71 18 175/83 99 05/29/17 22:14 05/29/17 22:14 05/29/17 22:14 05/29/17 22:14 05/29/17 22:14 General appearance: Present: A&O X 3, no acute distress, answers questions appropriately - Head Head exam: Present: atraumatic, normocephalic - Eye Eye exam: Present: PERRL, conjuntiva pink, sclera anicteric Pupils: Present: PERRL - Neck Neck exam general surgery: Present: supple, trachea midline. Absent: lymphadenopathy - Respiratory Respiratory exam: Present: CTAB. Absent: accessory muscle use, rales, rhonchi, wheezes - Cardiovascular Cardiovascular exam: Present: RRR, +S1, +S2. Absent: diastolic murmur, gallop, rubs, systolic murmur - GI/Abdominal GI/Abdominal exam: Present: normal bowel sounds, soft, no peritoneal signs. Absent: distended, tenderness - Extremities Exam Extremities exam: Present: warm, radial pulses palpable and symmetrical. Absent : calf tenderness, cyanotic, pedal edema - Neurological Exam Neurological exam: Present: CN II-XII intact, oriented X3, no focal deficits. Absent: pronater drift, facial droop, speech deficit - Skin Skin exam: Present: dry, intact Internal Med - H&P Results - Labs CBC & Chem 7: 05/29/17 12:00 05/29/17 11:33 Labs: Cardiac Enzymes 05/29/17 Range/Units 22:45 Troponin I 0.09 H* (< 0.04) ng/mL - Assessment and plan (1) Acute bronchitis Current Visit: Yes Status: Acute Assessment and plan: Patient has a cough, low fever, and yellowish sputum. Chest x-ray negative for pneumonia. Consider acute bronchitis. - We will place patient on IV azithromycin and the cough syrup Qualifiers: Bronchitis organism: unspecified organism Qualified Code(s): J20.9 - Acute bronchitis, unspecified (2) Hemoptysis Current Visit: Yes Status: Acute Assessment and plan: Patient has trace hemoptysis with recent increased cough. 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 And CTA shows small acute PE , no signs of infection or malignancy at this point. - I have discussed with patient regarding the benefits and risks of continuing anticoagulation. As patient has only trace hemoptysis, he has recurrent DVT and history of PE, and CTA shows acute PE. Hold anticoagulation will place patient on high risk of worsening PE. Patient agrees to continue xarelto. Will closely monitor patient. Will consult pulmonology for further management. (3) Epileptic seizure Current Visit: No Status: Acute Assessment and plan: History of seizure recorded in chart. Continue home medications Qualifiers: Epilepsy type: unspecified Intractability: not intractable Status epilepticus: without status epilepticus Qualified Code(s): G40.909 - Epilepsy , unspecified, not intractable, without status epilepticus (4) HTN (hypertension) Current Visit: No Status: Acute Assessment and plan: Continue home medications. Follow-up BP Qualifiers: Hypertension type: essential hypertension Qualified Code(s): I10 - Essential (primary) hypertension (5) History of DVT (deep vein thrombosis) Current Visit: No Status: Acute Assessment and plan: Patient has recurrent DVT and history of PE. He is on Coumadin previously and switched to xarelto now. Will continue xarelto. - Time Spent With Patient Total time spent is greater than 50% in coordination of care (as documented) at patient's floor/unit and/or counseling patient: 40 minutes Greater than 35 minutes
[2017-05-30 05:51] LABS: Basophils % 0.2 %; Eosinophils % 0.1 %; Hematocrit 43.4 % (37.5-50.1); Hemoglobin 14.2 g/dL (12.9-16.9); Immature Granulocytes % 0.4 % (0-4); Lymphocytes # 1.1 K/mcL (0.6-4.6); Lymphocytes % 10.6 %; Mean Corpuscular HGB Conc 32.7 g/dL (31.6-35.5); Mean Corpuscular Hemoglobin 28.1 pg (28.0-33.3); Mean Corpuscular Volume 85.9 fL (83.0-100.0); Mean Platelet Volume 11.6 fL (9.4-12.4); Monocytes # 1.1 K/mcL (0.0-1.3); Monocytes % 11.1 %; Neutrophils # 7.9 K/mcL (1.6-8.9); Platelet Count 237 K/mcL (140-400); Red Blood Count 5.05 M/mcL (4.19-5.50); Red Cell Distribution Width 14.4 % (11.5-14.5); Segmented Neutrophils % 77.6 %
[2017-05-30 06:12] LABS: BUN/Creatinine Ratio 18 (6-26); Blood Urea Nitrogen 19 mg/dL (8-23); Calcium 8.2 mg/dL (8.6-10.3); Carbon Dioxide 27 mEq/L (23-29); Chloride 97 mEq/L (98-107); Glucose 95 mg/dL (70-105); Magnesium 2.2 mg/dL (1.6-2.6); Osmolality,Calculated 272 (280-300); Potassium 3.9 mEq/L (3.5-5.1); Sodium 130 mEq/L (136-145); eGFR For African Americans > 60 (> 60); eGFR For Non-African Americans > 60 (> 60)
--- NOTE | 2017-05-30 07:16 | Electrocardiograph Report ---
[facility] Date: 2017-05-29 Pat Name: Edward Pierre Department: 104 Room: 2A37 Gender: M Utilization Manager: TMRobert : 1955 Requested By: Parveen Menard Order Number: [id number] Reading MD: Charisma Briones Measurements Intervals [place] Rate: 89 P: 44 MS: 167 QRS: -20 QRSD: 106 T: 59 QT: 334 QTc: 381 Interpretive Statements SINUS RHYTHM POSSIBLE LEFT ATRIAL ENLARGEMENT INCOMPLETE RIGHT BUNDLE BRANCH BLOCK NONSPECIFIC T-WAVE ABNORMALITY WARNING: DATA QUALITY MAY AFFECT INTERPRETATION Left axis deviation POOR R WAVE PROGRESSION Electronically Signed On 05-30-2017 7:14:54 EDT by Charisma Briones
[2017-05-30] MEDS ORDERED: *HR* Rivaroxaban 10 MG TABLET PO SCH (09:00)
[2017-05-30] MEDS: 0.9 % Sodium Chloride 1,000 ML IVC SCH (09:14)
[2017-05-30] MEDS: amLODIPine 5 MG TABLET PO SCH (09:15)
[2017-05-30] MEDS: Azithromycin 250 MG TABLET PO SCH (10:46)
--- NOTE | 2017-05-30 13:51 | Internal Med Progress Note ---
Date of Encounter: 05/30/17 Time of Encounter: 13:49 - Assessment and plan (1) Pulmonary embolism Current Visit: Yes Status: Acute Assessment and plan: No heart strain on CTA. Patient is not in any distress. Not hypoxic. Spoke to Dr. Lopez who he follows up with and she recommended switching him to Eliquis from Xarelto. Patient has a history of DVT and PE from and was on Coumadin at that time and had an IVC filter. IVC filter was removed and was taken off Coumadin. In 2014 he had another DVT for which she was put on Coumadin again. He again had another DVT and was switched to Xarelto in 2017. Qualifiers: Pulmonary embolism type: other Chronicity: unspecified Acute cor pulmonale presence: without acute cor pulmonale Qualified Code(s): I26.99 - Other pulmonary embolism without acute cor pulmonale (2) History of DVT (deep vein thrombosis) Current Visit: No Status: Acute Assessment and plan: Patient has recurrent DVT and history of PE. Currently on Xarelto which we are switching to Eliquis as above. (3) Acute bronchitis Current Visit: Yes Status: Acute Assessment and plan: c/w azithromax. check sputum cultures Qualifiers: Bronchitis organism: unspecified organism Qualified Code(s): J20.9 - Acute bronchitis, unspecified (4) HTN (hypertension) Current Visit: No Status: Acute Assessment and plan: Continue home medications. BP stable Qualifiers: Hypertension type: essential hypertension Qualified Code(s): I10 - Essential (primary) hypertension (5) Epileptic seizure Current Visit: No Status: Acute Assessment and plan: History of seizure recorded in chart. Continue home medications Qualifiers: Epilepsy type: unspecified Intractability: not intractable Status epilepticus: without status epilepticus Qualified Code(s): G40.909 - Epilepsy , unspecified, not intractable, without status epilepticus - Time Spent With Patient Total time spent is greater than 50% in coordination of care (as documented) at patient's floor/unit and/or counseling patient: - Subjective Interval history: Patient was seen and examined. No acute events. Feels well. Says he has mild shortness of breath. Diagnosed with a new PE while on Xarelto. Has a history of DVT and PE from and was on Coumadin at that time and had an IVC filter. IVC filter was removed and was taken off Coumadin. In 2014 he had another DVT for which she was put on Coumadin again. He again had another DVT and was switched to Xarelto in 2017. He follows with Dr. Lopez from hematology. - Constitutional Vitals: Temp Pulse Resp BP Pulse Ox 98.0 F 66 18 164/75 97 05/30/17 11:41 05/30/17 11:41 05/30/17 11:41 05/30/17 11:41 05/30/17 11:41 General appearance: Present: A&O X 3, no acute distress, answers questions appropriately Exam: GEN: NAD CVS: RRR. S1, S2, No m/r/g RESP: CTAB ABD: Soft, NT, ND, +BS EXT: No edema. 2+ DP. No rashes NEURO: Nonfocal Internal Medicine: Result - Labs CBC & Chem 7: 05/30/17 05:20 05/30/17 05:20 Labs: Short CBC 05/30/17 Range/Units 05:20 WBC 10.2 (4.3-11.1) K/mcL Hgb 14.2 (12.9-16.9) g/dL Hct 43.4 (37.5-50.1) % Plt Count 237 (140-400) K/mcL Neutrophils # 7.9 (1.6-8.9) K/mcL BMP 05/30/17 05:20 Sodium 130 L Potassium 3.9 Chloride 97 L Carbon Dioxide 27 BUN 19 Creatinine 1.08 Glucose 95 Calcium 8.2 L Cardiac Enzymes 05/29/17 05/30/17 Range/Units 22:45 05:20 Troponin I 0.09 H* 0.09 H* (< 0.04) ng/mL - ABG Interpretation ABG results: PT/INR, D-dimer PT 15.7 Seconds (9.4-12.1) H 05/29/17 15:54 Consult Discharge Plan - Plan Referrals: Eleonora Garcia, RECORD SEARCHER [Primary Care Provider] -
--- NOTE | 2017-05-30 16:26 | Oncology Inp Consult Note ---
Date of Encounter: 05/30/17 Time of Encounter: 12:00 Assessment and Plan (1) Pulmonary embolism Status: Acute Assessment and plan: Hx of prior PE and DVT, was on anticoag with coumadin and xarelto in the past, small subsegmental ?possible new PE, with ct lower ext swelling, respiratory illness prior IVC filter placement and removal. No major bleeding issues, recommend switrching anticoagulation to therapeutic eliquis 5mg BID dosing. Jude lung nodules are stable probable benign etiology. Left kidney mass MRI cyst stable 05/03 Abx for respiratory infection. 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 Qualifiers: Pulmonary embolism type: other Chronicity: acute Acute cor pulmonale presence: without acute cor pulmonale Qualified Code(s): I26.99 - Other pulmonary embolism without acute cor pulmonale - Data of Consult Requesting Physician: Ashley Beckham Primary Care Provider: Eleonora Garcia CNP - Consult Narrative Reason for consult: PE History of present illness: Mr. Pierre is a 60 year old male with medical history significant for deep venous thrombosis, history of PE, seizure disorder, obesity, status post a prior IVC filter placement and removal was on Coumadin with therapeutic INR with recurrent right superficial femoral vein thrombosis switched to xarelto lastr seen by [facility] in 12/02. MRI of the abdomen showed a stable left upper pole kidney mass on October 2016. Patient is hospitalized 06/03 with cough, congestion yellow phlegm noted to have some hemoptysis on anticoagulation evaluated in the ER. He had a CT angio that showed 06/03--RLL subsegmental PE. He has some chest discomfort on exam. Feels fatigued. Denied fevers. Tolerated xarelto well in the past. Lower ext swelling jude Past Med Surg Social Fam HX - Past Medical History Medical history: DVT, hyperlipidemia, hypertension, pulmonary embolus, seizures Psychiatric history: no psych history - Past Surgical History Surgical History: other - Social History Smoking Status: Former smoker Smokeless Tobacco Status: No Alcohol use: none Drug use: none - Family History Mother Adopted: No Living Status: Still Living Hx Family Cardiac Disorders: Yes Hx Family GI Disorders: Yes (Diverticulitis) Father Living Status: Hx Family Cancer: Yes (kidney cancer) Medications and Allergies Primidone [Mysoline] 250 mg PO QID 01/08/16 [History] Atorvastatin [Lipitor] 40 mg PO HS 07/28/16 [History] amLODIPine [Norvasc] 5 mg PO DAILY #30 tablet 07/30/16 [Rx] Rivaroxaban [Xarelto] 20 mg PO DAILY 10/14/16 [History] 3 Allergy/AdvReac Type Severity Reaction Status Date / Time No Known Allergies Allergy Verified 08/12/16 10:04 Review of systems: as in HPI otherwise neg Oncology - Exam - Constitutional Vitals: Temp Pulse Resp BP Pulse Ox 97.9 F 67 18 160/76 96 05/30/17 15:58 05/30/17 15:58 05/30/17 15:58 05/30/17 15:58 05/30/17 15:58 General appearance: obese - Head Head exam: Present: atraumatic, normal inspection - Eye Eye exam: Present: sclera anicteric - ENT ENT exam: Present: mucous membranes moist - Respiratory Respiratory exam: Present: CTAB - Cardiovascular Cardiovascular exam: Present: +S1, +S2 - GI/Abdominal GI/Abdominal exam: Present: normal bowel sounds, soft - Extremities Exam Extremities exam: Present: pedal edema Additional comments: Cr skn changes in dressing no deep ulceration - Neurological Exam Neurological exam: Present: alert, CN II-XII intact, oriented X3 - Psychiatric Psychiatric exam: Present: normal mood Oncology - Results Labs: Short CBC 05/30/17 Range/Units 05:20 WBC 10.2 (4.3-11.1) K/mcL Hgb 14.2 (12.9-16.9) g/dL Hct 43.4 (37.5-50.1) % Plt Count 237 (140-400) K/mcL Neutrophils # 7.9 (1.6-8.9) K/mcL BMP 05/30/17 05:20 Sodium 130 L Potassium 3.9 Chloride 97 L Carbon Dioxide 27 BUN 19 Creatinine 1.08 Glucose 95 Calcium 8.2 L Cardiac Enzymes 05/29/17 05/30/17 Range/Units 22:45 05:20 Troponin I 0.09 H* 0.09 H* (< 0.04) ng/mL Consult Discharge Plan - Plan Referrals: Eleonora Garcia, QUANTITATIVE ASSOCIATE [Primary Care Provider] -
[2017-05-31] MEDS: Melatonin 3 MG TABLET PO PRN (00:21)
[2017-05-31] MEDS: amLODIPine 5 MG TABLET PO SCH (08:43)
[2017-05-31] MEDS: Azithromycin 250 MG TABLET PO SCH (08:43)
[2017-05-31] MEDS ORDERED: Apixaban 5 MG TABLET PO SCH (09:00)
--- NOTE | 2017-05-31 09:55 | Discharge Summary ---
- NOTES TO OUTPATIENT PROVIDER Notes to Outpatient Provider: Put the pateint on Pradaxa as he failed Xarelto. Xarelto and Eliquis have major interaction with Primidone that deem them less effective. Orders not resulted at time of discharge: Pending orders 05/30/17 13:51 Culture,Sputum with Gram Stain [RM] Routine Date of Encounter: 06/01/17 Time of Encounter: 09:53 - Discharge Diagnosis (1) Pulmonary embolism Priority: Primary Status: Acute Qualifiers: Pulmonary embolism type: other Chronicity: unspecified Acute cor pulmonale presence: without acute cor pulmonale Qualified Code(s): I26.99 - Other pulmonary embolism without acute cor pulmonale (2) History of DVT (deep vein thrombosis) Priority: Secondary Status: Acute (3) Acute bronchitis Priority: Primary Status: Acute Qualifiers: Bronchitis organism: unspecified organism Qualified Code(s): J20.9 - Acute bronchitis, unspecified (4) HTN (hypertension) Priority: Secondary Status: Acute Qualifiers: Hypertension type: essential hypertension Qualified Code(s): I10 - Essential (primary) hypertension (5) Epileptic seizure Priority: Secondary Status: Acute Qualifiers: Epilepsy type: unspecified Intractability: not intractable Status epilepticus: without status epilepticus Qualified Code(s): G40.909 - Epilepsy , unspecified, not intractable, without status epilepticus (6) Hyponatremia Priority: Primary Status: Acute Hospital course: Mr. Pierre is a 61 year old male male presented to ER for hemoptysis. He also had low grade temps and sputum production. He was found to have small acute PE and was initially put on a heparin drip. Due to the patient's history of having DVTs and PEs in the past and now a new PE while on Xarelto, we consulted with hematology. The patient has history of DVT and PE from and was on Coumadin at that time and had an IVC filter. IVC filter was removed and was taken off Coumadin. In 2014 he had another DVT for which she was put on Coumadin again. He again had another DVT and was switched to Xarelto in 2017. He follows with Dr. Sheppard from hematology. She saw the patient and recommended changing anticoagulation. We could not do eliquis due to interaction with Primidone which the patient takes for seizures. We found out that Xarelto has interaction with primidone as well. Primidone makes those drugs less effectiveness which possibly explains his recurrent PEs and DVTs. Spoke to pharmacy and found that her Pradaxa was the best option. Patient ended up staying in the hospital an extra day while we obtain a prior authorization for his insurance to approve it. We also treated patient for acute bronchitis with Zithromax and he is to finish 5 total days. He was discharged on 06/01. The patient was not hypoxic and was not requiring oxygen. He was hemodynamically stable. He is to follow-up with Dr. sheppard as an outpatient. - Time Spent with Patient Total time spent providing and/or coordinating discharge services: - Discharge Medications Prescriptions: Azithromycin [Zithromax] 500 mg PO Q24H #3 tablet Dabigatran [Pradaxa] 150 mg PO BID #60 capsule Home Medications: Primidone [Mysoline] 250 mg PO QID 01/08/16 [History] Atorvastatin [Lipitor] 40 mg PO HS 07/28/16 [History] amLODIPine [Norvasc] 5 mg PO DAILY #30 tablet 07/30/16 [Rx] Azithromycin [Zithromax] 500 mg PO Q24H #3 tablet 05/31/17 [Rx] Dabigatran [Pradaxa] 150 mg PO BID #60 capsule 06/01/17 [Rx] Allergies/Adverse Reactions: 3 Allergy/AdvReac Type Severity Reaction Status Date / Time No Known Allergies Allergy Verified 08/12/16 10:04 Date of admission: 05/29/17 20:56 Primary care physician: Eleonora Garcia CNP Consults: 05/30/17 10:08 Consult to Oncology Hematology [CONS] Routine Consulting Provider: Magaly Moore Reason for Consult: recurrent PEs Call Completed: Yes - Constitutional Vitals: Temp Pulse Resp BP Pulse Ox 97.5 F L 61 17 131/79 97 05/31/17 07:49 05/31/17 07:49 05/31/17 07:49 05/31/17 07:49 05/31/17 08:46 General appearance: Present: A&O X 3, no acute distress, answers questions appropriately Exam: GEN: NAD CVS: RRR. S1, S2, No m/r/g RESP: CTAB ABD: Soft, NT, ND, +BS EXT: No edema. 2+ DP. No rashes NEURO: Nonfocal - Patient Status Disposition: Home, Self-Care Condition: Fair Overall status at discharge: patient is progressing back to baseline - Discharge Instructions Instructions: Azithromycin (By mouth), Apixaban (By mouth), Pulmonary Embolism (DC) Follow Up With: Magaly Moore MD [Partnered Physician] - (2 weeks) Eleonora Garcia CNP [Primary Care Provider] - 06/05/17 3:00 pm (please follow as schedule...) - Diet and Activity Activity: increase activity as tolerated Diet: regular diet
--- NOTE | 2017-05-31 13:32 | Internal Med Progress Note ---
Date of Encounter: 05/31/17 Time of Encounter: 13:32 - Assessment and plan (1) Pulmonary embolism Current Visit: Yes Status: Acute Assessment and plan: No heart strain on CTA. Patient is not in any distress. Not hypoxic. Spoke to Dr. Lopez who he follows up with and she recommended switching him to Eliquis from Xarelto. Got a call from the pharmacy about interaction of Primidone which the patient is on and Eliquis and also Xarelto. The patient has been on Primidone which possibly explains him failing mulitple anticoagulation agents in the past. Needs a prior auth for Pradaxa which we cant get today on a Thursday. Will try tomorrow. Patient has a history of DVT and PE from and was on Coumadin at that time and had an IVC filter. IVC filter was removed and was taken off Coumadin. In 2014 he had another DVT for which she was put on Coumadin again. He again had another DVT and was switched to Xarelto in 2017. Qualifiers: Pulmonary embolism type: other Chronicity: unspecified Acute cor pulmonale presence: without acute cor pulmonale Qualified Code(s): I26.99 - Other pulmonary embolism without acute cor pulmonale (2) History of DVT (deep vein thrombosis) Current Visit: No Status: Acute Assessment and plan: Patient has recurrent DVT and history of PE. Switch to Pradax due to above. (3) Acute bronchitis Current Visit: Yes Status: Acute Assessment and plan: c/w azithromax. check sputum cultures Qualifiers: Bronchitis organism: unspecified organism Qualified Code(s): J20.9 - Acute bronchitis, unspecified (4) HTN (hypertension) Current Visit: No Status: Acute Assessment and plan: Continue home medications. BP stable Qualifiers: Hypertension type: essential hypertension Qualified Code(s): I10 - Essential (primary) hypertension (5) Epileptic seizure Current Visit: No Status: Acute Assessment and plan: History of seizure recorded in chart. Continue home medications Qualifiers: Epilepsy type: unspecified Intractability: not intractable Status epilepticus: without status epilepticus Qualified Code(s): G40.909 - Epilepsy , unspecified, not intractable, without status epilepticus - Time Spent With Patient Total time spent is greater than 50% in coordination of care (as documented) at patient's floor/unit and/or counseling patient: - Subjective Interval history: Patient was seen and examined. No acute events. Feels well. He is on Primidone which is interacting with Xarelto and Eliquis. Now switched to Pradaxa. Says he has mild shortness of breath. Diagnosed with a new PE while on Xarelto. Has a history of DVT and PE from and was on Coumadin at that time and had an IVC filter. IVC filter was removed and was taken off Coumadin. In 2014 he had another DVT for which she was put on Coumadin again. He again had another DVT and was switched to Xarelto in 2017. He follows with Dr. Lopez from hematology. - Constitutional Vitals: Temp Pulse Resp BP Pulse Ox 98.2 F 66 17 179/79 96 05/31/17 12:25 05/31/17 12:25 05/31/17 12:25 05/31/17 12:25 05/31/17 12:25 General appearance: Present: A&O X 3, no acute distress, answers questions appropriately Exam: GEN: NAD CVS: RRR. S1, S2, No m/r/g RESP: CTAB ABD: Soft, NT, ND, +BS EXT: No edema. 2+ DP. No rashes NEURO: Nonfocal Internal Medicine: Result - Labs CBC & Chem 7: 05/30/17 05:20 05/30/17 05:20 - ABG Interpretation ABG results: PT/INR, D-dimer PT 15.7 Seconds (9.4-12.1) H 05/29/17 15:54 Consult Discharge Plan - Plan Instructions: Azithromycin (By mouth), Apixaban (By mouth), Pulmonary Embolism (DC) Referrals: Magaly Moore MD [Partnered Physician] - (2 weeks) Eleonora Garcia CNP [Primary Care Provider] - (WEB REQUEST SENT) Prescriptions: Apixaban [Eliquis] 5 mg PO BID #60 tablet Azithromycin [Zithromax] 500 mg PO Q24H #3 tablet
--- NOTE | 2017-05-31 13:46 | Oncology Inp Progress Note ---
Date of Encounter: 05/31/17 Time of Encounter: 09:00 (1) Pulmonary embolism Current Visit: Yes Status: Acute Assessment and plan: Hx of prior PE and DVT, was on anticoag with coumadin and xarelto in the past, small subsegmental ?possible new PE, with ct lower ext swelling, respiratory illness prior IVC filter placement and removal. Primidone-drug interaction with newer anticoagulants noted. 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 Qualifiers: Pulmonary embolism type: other Chronicity: acute Acute cor pulmonale presence: without acute cor pulmonale Qualified Code(s): I26.99 - Other pulmonary embolism without acute cor pulmonale Oncology: Subj Interval history: congestion on abx, started apixiban - Constitutional Vitals: Vital Signs Temp Pulse Resp BP Pulse Ox 05/31/17 12:25 98.2 F 66 17 179/79 96 05/31/17 08:46 97 05/31/17 07:49 97.5 F L 61 17 131/79 97 05/31/17 03:13 97 05/31/17 03:11 97.8 F 63 17 138/75 95 05/30/17 23:51 97 05/30/17 23:37 97.9 F 70 16 142/79 95 05/30/17 21:48 93 05/30/17 20:19 96 05/30/17 19:05 98.2 F 70 17 144/77 95 05/30/17 15:58 97.9 F 67 18 160/76 96 Intake and Output 05/30/17 05/31/17 05/31/17 23:59 07:59 15:59 Intake Total 360 / 360 600 / 600 Output Total 800 / 800 300 / 300 Balance -440 / -440 300 / 300 Intake: Oral 360 / 360 600 / 600 Output: Urine 550 / 550 300 / 300 Catheter 250 / 250 Other: Meal Dinner Lunch Percent of Meal Consumed 100% 95% Stool Size Moderate Moderate Stool Consistency soft soft Stool Color Brown Brown # Voids 1 1 # Bowel Movements 1 1 Weight 135.284 kg Patient Weight 05/31/17 23:59 Weight 135.284 kg General appearance: obese - Head Head exam: Present: atraumatic, normal inspection - Extremities Exam Extremities exam: Present: pedal edema - Neurological Exam Neurological exam: Present: alert, CN II-XII intact, oriented X3, no focal deficits Oncology: Obj Data - Labs CBC & Chem 7: 05/30/17 05:20 05/30/17 05:20 - ABG Interpretation ABG results: PT/INR, D-dimer PT 15.7 Seconds (9.4-12.1) H 05/29/17 15:54 Consult Discharge Plan - Plan Instructions: Azithromycin (By mouth), Apixaban (By mouth), Pulmonary Embolism (DC) Referrals: Magaly Moore MD [Partnered Physician] - (2 weeks) Eleonora Garcia CNP [Primary Care Provider] - (WEB REQUEST SENT) Prescriptions: Apixaban [Eliquis] 5 mg PO BID #60 tablet Azithromycin [Zithromax] 500 mg PO Q24H #3 tablet
[2017-05-31] MEDS: *HR* Dabigatran 150 MG CAPSULE PO SCH (20:38)
[2017-06-01] MEDS: Melatonin 3 MG TABLET PO PRN (00:23)
[2017-06-01] MEDS: *HR* Dabigatran 150 MG CAPSULE PO SCH (09:34)
[2017-06-01] MEDS: Azithromycin 250 MG TABLET PO SCH (09:34)
[2017-06-01] MEDS: amLODIPine 5 MG TABLET PO SCH (09:35)
[2017-06-01 11:25] VITALS: BP 193/78
== END 2017-06-01 17:45 | disposition home or self-care (01) | DRG 134 ==
LOC: EMEROO 11:19 → 2ANU 11:19
PROVIDERS: ADMIT Internal Medicine; ATTEND Internal Medicine

== ENCOUNTER 2018-02-25 14:27 | Observation (INO) ==
--- NOTE | 2018-02-25 14:42 | Emergency Department Note ---
Disposition Clinical Impression: Seizure disorder, Seizure Disposition: Admitted As Inpatient Condition: Fair Time of Disposition: 17:17 General Adult HPI - General Chief complaint: ED Seizure Stated complaint: Seizure Time Seen by Provider: 02/25/18 14:36 Source: patient, EMS Limitations: no limitations - History of Present Illness HPI Narrative: Mr Doherty is a 62yo male brought via EMS this morning. Report obtained from EMS this morning stated girlfriend found him having a seizure and he was seizing for about 5 min. They state he didn't have any incontinence. His glucose en route was in 250s. He was confused on the way here this morning but began to become much more oriented once he got here. Remained confused ~20min. He gets a few seizures a month, nothing in particular brings them on. He has recently had his medication changed and is only on primidone but is unsure of when his medications were changed. He denies any illicit drug use, BZ, barbituate or alcohol abuse. He states that he did bite his tongue this morning. He denies any trauma and states he has no pain. He states he didn't take his medication for two days. He re-presents this afternoon after having another seizure. He states he bit his tongue again but didn't have incontinence. He doesn't c/o any pain anywhere. He is unsure of how long his seizure lasted. He states he isn't confused at this time. Pt Subjective Complaint: seizure Pain Scale: 0 - Related Data Home Medications Medication Instructions Recorded Confirmed Atorvastatin [Lipitor] 40 mg PO HS 07/28/16 02/25/18 HydrOXYzine 10 mg PO TID 02/25/18 02/25/18 Previous Rx's Medication Instructions Recorded amLODIPine [Norvasc] 5 mg PO DAILY #30 tablet 07/30/16 Dabigatran [Pradaxa] 150 mg PO BID #60 capsule 06/01/17 Primidone [Mysoline] 250 mg PO QID #40 tablet 02/20/18 Allergies Allergy/AdvReac Type Severity Reaction Status Date / Time No Known Allergies Allergy Verified 02/25/18 11:29 Constitutional: Denies: fever, chills Eyes: Denies: eye pain, vision change ENT ED: Denies: congestion Cardiovascular: Denies: chest pain Respiratory: Denies: cough Gastrointestinal: Denies: abdominal pain, nausea, vomiting, diarrhea Genitourinary: Denies: urgency, dysuria Musculoskeletal: Denies: back pain Integumentary: Denies: rash Neurological: Denies: headache, weakness Psychiatric: Denies: anxiety Endocrine: Denies: fatigue Hematological/Lymphatic: Denies: easy bleeding, easy bruising Past Medical History - Past Medical History Medical history: Reports: DVT, hyperlipidemia, hypertension, pulmonary embolus, seizures Surgical history: Reports: other Psychiatric history: Reports: no psych history - Social History Smoking Status: Former smoker Smokeless Tobacco Status: No Alcohol use: Reports: none Drug use: Reports: none Physical Exam - General Limitations: no limitations General appearance: alert, in no apparent distress, other (elderly male resting comfortably in bed, no acute distress, able to speak in full sentences without respiratory distress) - Head Head exam: atraumatic, normocephalic, normal inspection - Eye Eye exam: Absent: scleral icterus - ENT ENT exam: mucous membranes moist - Neck Neck exam: Present: trachea midline - Chest Chest inspection: Present: symmetric chest wall rise - Respiratory Respiratory exam: Present: normal lung sounds bilaterally, other (not in respiratory distress, able to speak in full sentences, no rhonchi/wheezing or rales). Absent: respiratory distress, wheezes, accessory muscle use, prolonged expiratory phase - Cardiovascular Cardiovascular exam: Present: normal rhythm, tachycardia, +S1, +S2. Absent: rubs, gallop, clicks - Abdominal Exam Abdominal exam: Present: soft, Non-Tender. Absent: distention, guarding, rebound - Extremities Exam Extremities exam: Present: normal inspection, normal capillary refill. Absent: pedal edema - Neurological Exam Neurological exam: Present: alert, oriented X3, CN II-XII intact - Expanded Neurological Exam Speech: Present: fluid speech Cranial nerves: EOM function (II, III, IV, ): Normal, facial sensation (V): Normal, facial palsy (VII): Normal, spinal accessory function (XI): Normal, tongue deviation (XII): Normal - Psychiatric Psychiatric exam: Present: normal affect, normal mood - Skin Skin exam: Present: warm, dry, intact Course Course Narrative: Mr Pierre is a 62yo male who was here this morning for seizure. EMS brought him and he was evaluated. His seizure lasted about 5 min this morning followed by about 20 min of confusion. He had no incontinence but did bite his tongue. After workup he was discharged home. He had another seizure at home and was brought back. He is unsure of how long his seizure lasted for but he did bite his tongue more. We will call neurology sales compensation analyst for further recommendations and have him admitted for further workup. - Reevaluation(s) Reevaluation #1: Dr Muhammad accepted hospitalist. Time: 17:14 - Consultations Consultation #1: Talked to neurology. They want him to have 1000mg keppra now and CT head. Start 500mg PO BID keppra tomorrow. Will admit. Call completed and consult placed. Time: 15:20 Vital Signs Temperature 98.2 F 02/25/18 14:33 Pulse Rate 96 02/25/18 14:33 Respiratory Rate 20 02/25/18 14:33 Blood Pressure 155/74 02/25/18 14:33 O2 Sat by Pulse Oximetry 95 02/25/18 14:33 Temperature 98.2 F 02/25/18 14:33 Pulse Rate 85 02/25/18 16:30 Respiratory Rate 18 02/25/18 16:30 Blood Pressure 139/77 02/25/18 16:30 O2 Sat by Pulse Oximetry 97 02/25/18 16:30 Oxygen Delivery Oxygen Delivery Room Air Medical Decision Making - MDM Narrative Medical decision making narrative: Mr Pierre is a 62yo male who was here this morning for seizure. EMS brought him and he was evaluated. His seizure lasted about 5 min this morning followed by about 20 min of confusion. He had no incontinence but did bite his tongue. After workup he was discharged home. He had another seizure at home and was br ought back. He is unsure of how long his seizure lasted for but he did bite his tongue more. Neurology asked for him to be started on 1000mg lamotrigine while in the hospital with CT scan of head. CT head negative. Put orders in for him to be started on lamotrigine BID 500mg starting tomorrow. Dr Muhammad accepted admission. Neurology consulted with consult placed/call completed. He is medically stable for transfer to the floor. - Medical Records Medical records reviewed: Yes I reviewed the patient's medical records. - Lab Data Lab results reviewed: Yes I reviewed the patient's lab results. Lab Results 02/25/18 Range/Units 14:41 POC Glucose 116 H (70-99) mg/dL - Radiology Data Radiology results reviewed: Yes I reviewed the patient's radiology results.
[2018-02-25] MEDS ORDERED: levETIRAcetam 1,000 MG in 0.9 % Sodium Chloride 100 ML IVPB ONE (15:13)
--- NOTE | 2018-02-25 16:36 | Emergency Department Note ---
Disposition Clinical Impression: Seizure disorder, Seizure Disposition: Admitted As Inpatient Condition: Fair Referrals: Eleonora Garcia DRYWALL SPRAYER [Primary Care Provider] - Forms: ED Satisfaction Letter General Adult HPI - General Chief complaint: ED Seizure Stated complaint: Seizure Time Seen by Provider: 02/25/18 14:36 Source: patient, EMS Limitations: no limitations - History of Present Illness Pain Scale: 0 - Related Data Home Medications Medication Instructions Recorded Confirmed Atorvastatin [Lipitor] 40 mg PO HS 07/28/16 02/25/18 HydrOXYzine 10 mg PO TID 02/25/18 02/25/18 Previous Rx's Medication Instructions Recorded amLODIPine [Norvasc] 5 mg PO DAILY #30 tablet 07/30/16 Dabigatran [Pradaxa] 150 mg PO BID #60 capsule 06/01/17 Primidone [Mysoline] 250 mg PO QID #40 tablet 02/20/18 Allergies Allergy/AdvReac Type Severity Reaction Status Date / Time No Known Allergies Allergy Verified 02/25/18 11:29 Constitutional: Denies: fever, chills Eyes: Denies: eye pain, vision change ENT ED: Denies: congestion Cardiovascular: Denies: chest pain Respiratory: Denies: cough Gastrointestinal: Denies: abdominal pain, nausea, vomiting, diarrhea Genitourinary: Denies: urgency, dysuria Musculoskeletal: Denies: back pain Integumentary: Denies: rash Neurological: Denies: headache, weakness Psychiatric: Denies: anxiety Endocrine: Denies: fatigue Hematological/Lymphatic: Denies: easy bleeding, easy bruising Past Medical History - Past Medical History Medical history: Reports: DVT, hyperlipidemia, hypertension, pulmonary embolus, seizures Surgical history: Reports: other Psychiatric history: Reports: no psych history - Social History Smoking Status: Former smoker Smokeless Tobacco Status: No Alcohol use: Reports: none Drug use: Reports: none Physical Exam - General Limitations: no limitations General appearance: alert, in no apparent distress, other (elderly male resting comfortably in bed, no acute distress, able to speak in full sentences without respiratory distress) Course Vital Signs Temperature 98.2 F 02/25/18 14:33 Pulse Rate 96 02/25/18 14:33 Respiratory Rate 20 02/25/18 14:33 Blood Pressure 155/74 02/25/18 14:33 O2 Sat by Pulse Oximetry 95 02/25/18 14:33 Temperature 98.2 F 02/25/18 14:33 Pulse Rate 73 02/25/18 15:30 Respiratory Rate 18 02/25/18 15:30 Blood Pressure 123/70 02/25/18 15:30 O2 Sat by Pulse Oximetry 97 02/25/18 15:30 Oxygen Delivery Oxygen Delivery Room Air Medical Decision Making - Lab Data Lab Results 02/25/18 Range/Units 14:41 POC Glucose 116 H (70-99) mg/dL Attestation Statement - Attestation Attestation: I examined this patient and my medical decision-making was reviewed with the DOCTOR NATUROPATHIC/PA/Advanced Practice Nurse/Resident Physician. I agree with the documented findings, disposition and treatment plan as described except to the extent set forth below. I did just see the patient is spoke with him and he is bright and alert and conversational and he denies any pain in the head, neck, chest, abdomen or back. The patient's presentation was discussed with neurology and they would like to have the patient admitted and the hospitalist is paged. [id number] I did speak with the hospitalist who accepts the patient for admission [id number]
--- NOTE | 2018-02-25 17:35 | Event Note ---
Date of Encounter: 02/25/18 Time of Encounter: 17:10 to serve as attestation pending completion of the resident H&P I examined this patient and my medical decision-making was reviewed with the Resident Physician Dr Haque. I agree with the documented findings, disposition and treatment plan as described except to the extent set forth below. Mr Pierre has history of sezire disorder and is being observed for recurrent seizure secondary to med non compliance in recent weeks as admitted by pt. seen in ed this morning with sexiure and dc to home and returned with second seizure. Neuro consulted from ED and gopira loaded awakes to name, alert and oriented. no current tremors, confusion. has not been taking primidone for a month. bit tongue this morning with seizure, no bleeding. no joint/shoulder pain. no headache. denies recent illness, no drug or etoh use. gen- alert, awake,appears stated age, malodorous and disheveled eyes- pupils equal round ent- left lat tongue lac non bleeding cv- reg rate and rhythm, normal s1,s2, no murmurs appreciated, trace dependent le edema lungs- ctabl, no wheezing, rhonchi or crackles, normal resp effort abd- soft, non tender, non distended, + bs neuro- AAOx3, CN grossly intact, no focal deficits Seizures 2/2 med non compliance- seizure precautions, s/p 1g Keppra in ED and per neuro rec begin 500 PO BID in am, neurology consulted, check repeat bmp, uds and etoh level (last labs this morning on first presentation) HTN- cont home norvasc Hx PE- cont pradaxa further diagnoses and plan as noted by resident
--- NOTE | 2018-02-25 17:43 | Internal Med History&Physical ---
<Inder Haque - Last Filed: 02/25/18 17:40> Date of Encounter: 02/25/18 Time of Encounter: 17:40 Internal Medicine - H&P: HPI Chief complaint: Seizures Admitted From: Emergency Dept Plans for Post Hospital Care: Home History of present illness: Mr. Pierre is a 62 year old male with history of seizures, hypertension, hyperlipidemia, pulmonary embolism presents with chief complaint of seizures. Patient initially presented this morning after his girlfriend found him having a tonic-clonic seizure that lasted for 5 minutes. At that time he did not have any urinary incontinence. According to the ED note patient became oriented in the emergency department and was discharged. Patient again had a seizure and we presented this afternoon. This time he did have some tongue biting. He denied any joint pain, neck pain, headache, double vision, numbness, tingling, weakness. He reports history of seizures as a child from age 11 was then lasted till 2006. He used to be on Dilantin, primidone, phenobarbital and was followed by neurology, Dr. Fernando. Since 2006 patient has not had a seizure until April 2017. Patient was weaned off Dilantin and phenobarbital by neurology due to this seizure free time. Patient has been on Prandin but ran out of his medications last week and did not follow up at his neurology appointment. In the ED CT head was done was negative for any acute changes. Neurology was consultative and patient was started on Keppra IV. Past Med Surg Social Fam HX - Past Medical History Medical history: DVT, hyperlipidemia, hypertension, pulmonary embolus, seizures Additional medical history: blood clots, mild mrdd Psychiatric history: no psych history - Past Surgical History Surgical History: other Additional surgical history: merissa place then removed - Social History Smoking Status: Former smoker Smokeless Tobacco Status: No Alcohol use: none Drug use: none - Family History Mother Adopted: No Living Status: Still Living Hx Family Cardiac Disorders: Yes Hx Family GI Disorders: Yes (Diverticulitis) Father Living Status: Hx Family Cancer: Yes (kidney cancer) Internal Medicine - H&P: Meds Atorvastatin [Lipitor] 40 mg PO HS 07/28/16 [History] amLODIPine [Norvasc] 5 mg PO DAILY #30 tablet 07/30/16 [Rx] Dabigatran [Pradaxa] 150 mg PO BID #60 capsule 06/01/17 [Rx] Primidone [Mysoline] 250 mg PO QID #40 tablet 02/20/18 [Rx] HydrOXYzine 10 mg PO TID 02/25/18 [History] Allergy/AdvReac Type Severity Reaction Status Date / Time No Known Allergies Allergy Verified 02/25/18 11:29 All Systems PM: A 10-system review of systems was performed and is negative for pertinent findings except as documented above in the HPI. Review of systems: Constitutional: Denies fever, chills HEENT: Denies headache, trauma, blurry vision, eye discharge, ear pain, ear discharge neck pain, sore throat, rhinorrhea Heart: Denies chest pain palpitations, LE edema Lungs: Denies shortness of breath cough Abdomen: Denies abdominal pain nausea vomiting diarrhea MSK: Denies back pain, falls, joint pain Kidney: Denies dysuria, hematuria Skin: Denies rash, ulcers. Reports chronic right lower extremity skin changes secondary to healed ulcer Neuro: Denies numbness and tingling. Reports seizures Psych: denies axniety, depression - Constitutional Vitals: Temp Pulse Resp BP Pulse Ox 98.2 F 85 18 139/77 97 02/25/18 14:33 02/25/18 16:30 02/25/18 16:30 02/25/18 16:30 02/25/18 16:30 Exam: General: pleasant, without distress HEENT: Head atraumatic, normocephalic, EOMI, PERRL, absent ear discharge or trauma, Moist Mucous Membranes, uvula midline Neck: nontender to palpation, absent lymphadenopathy, Cardiovascualr: Regular rate and rhythm with no murmur, absent gallops or rubs, absent pedal edema, radial pulses 2 out of 4 Lungs: Clear to auscultation bilaterally, not in respiratory distress Abdomen: Soft nontender, nondistended positive bowel sounds, absent hepatomegaly Skin: warm and dry, absent rash, absent open wounds and nodules MSK: absent clubbing, cyanosis, joints without swelling Neuro: Cranial nerves II through XII intact, UE and LE sensation equal bilaterally, UE and LEstrength 5/5, alert oriented 3, Heel to pickens intact, finger to nose intact, Psych: good insight and judgment Internal Med - H&P Results - Impressions ITS Impressions Head CT 02/25/18 15:14 IMPRESSION: No acute intracranial abnormality. Improving left mastoiditis seen on prior examination. D/ / 02/25/2018 16:08:32 Skip Pickard MD / maricarmen Interpreting Provider: Skip Pickard MD - Assessment and plan (1) Seizure Current Visit: Yes Status: Acute Assessment and plan: Since April of last year patient has had multiple seizure episodes Since this morning patient has had [address] head negative Currently he is on Keppra 500 mg by mouth every 12 hours Neurology has been consulted and will see the patient the morning Repeating patient's urine tox screen, BMP, EtOH level, magnesium, phosphorus (2) History of pulmonary embolism Current Visit: Yes Status: Acute Assessment and plan: Patient has a history of PE and DVT and was initially on Coumadin and then xeralto He was then transitioned to Pradaxa secondary to xeralto's interaction with primidone Continue Pradaxa (3) DVT prophylaxis Current Visit: Yes Status: Acute Assessment and plan: On Pradaxa (4) History of hyperlipidemia Current Visit: Yes Status: Acute Assessment and plan: Continue atorvastatin (5) History of hypertension Current Visit: Yes Status: Acute Assessment and plan: Controlled continue amlodipine - Time Spent With Patient Total time spent is greater than 50% in coordination of care (as documented) at patient's floor/unit and/or counseling patient: <ThanhAissatou M - Last Filed: 02/25/18 17:57> Date of Encounter: 02/25/18 Internal Medicine - H&P: HPI History of present illness: Mr. Pierre is a 62 year old male All Systems PM: A 10-system review of systems was performed and is negative for pertinent findings except as documented above in the HPI. - Constitutional Vitals: Temp Pulse Resp BP Pulse Ox 98.2 F 85 18 139/77 97 02/25/18 14:33 02/25/18 16:30 02/25/18 16:30 02/25/18 16:30 02/25/18 16:30 Internal Med - H&P Results - Labs CBC & Chem 7: 02/25/18 14:37 Labs: BMP 02/25/18 14:37 Sodium 141 Potassium 3.8 Chloride 107 Carbon Dioxide 19 L BUN 17 Creatinine 1.05 Glucose 119 H Calcium 9.5 - Impressions ITS Impressions Head CT 02/25/18 15:14 IMPRESSION: No acute intracranial abnormality. Improving left mastoiditis seen on prior examination. D/ / 02/25/2018 16:08:32 Skip Pickard MD / maricarmen Interpreting Provider: Skip Pickard MD - Assessment and plan (1) History of hyperlipidemia Current Visit: Yes Status: Acute (2) DVT prophylaxis Current Visit: Yes Status: Acute (3) Seizure Current Visit: Yes Status: Acute (4) History of pulmonary embolism Current Visit: Yes Status: Acute (5) History of hypertension Current Visit: Yes Status: Acute - Time Spent With Patient Total time spent is greater than 50% in coordination of care (as documented) at patient's floor/unit and/or counseling patient: - Attending Attestation I examined this patient and my medical decision-making was reviewed with the Resident Physician Dr Haque. I agree with the documented findings, disposition and treatment plan as described except to the extent set forth below. Mr Pierre has history of seizure disorder and is being observed for recurrent seizure secondary to med non compliance in recent weeks as admitted by pt. seen in ed this morning with seizure and dc to home and returned with second seizure. Neuro consulted from ED and keppra loaded awakes to name, alert and oriented. no current tremors, confusion. has not been taking primidone for a month. bit tongue this morning with seizure, no bleeding. no joint/shoulder pain. no headache. denies recent illness, no drug or etoh use. gen- alert, awake,appears stated age, malodorous and disheveled eyes- pupils equal round ent- left lat tongue lac non bleeding cv- reg rate and rhythm, normal s1,s2, no murmurs appreciated, trace dependent le edema lungs- ctabl, no wheezing, rhonchi or crackles, normal resp effort abd- soft, non tender, non distended, + bs neuro- AAOx3, CN grossly intact, no focal deficits Seizures 2/2 med non compliance- seizure precautions, s/p 1g Keppra in ED and per neuro rec begin 500 PO BID in am, neurology consulted, check repeat bmp, uds and etoh level (last labs this morning on first presentation) HTN- cont home norvasc Hx PE- cont pradaxa further diagnoses and plan as noted by resident
[2018-02-25 17:57] LABS: BUN/Creatinine Ratio 16 (6-26); Blood Urea Nitrogen 17 mg/dL (8-23); Calcium 9.5 mg/dL (8.6-10.3); Carbon Dioxide 19 mEq/L (23-29); Chloride 107 mEq/L (98-107); Ethanol < 10 mg/dL (Less than 10); Glucose 119 mg/dL (70-105); Magnesium 2.2 mg/dL (1.6-2.6); Osmolality,Calculated 295 (280-300); Phosphorous 1.9 mg/dL (2.7-4.5); Potassium 3.8 mEq/L (3.5-5.1); Sodium 141 mEq/L (136-145); eGFR For Non-African Americans > 60 (> 60)
[2018-02-25] MEDS: *HR* Dabigatran 150 MG CAPSULE PO SCH (19:56)
[2018-02-25] MEDS ORDERED: Acetaminophen 325 MG TABLET PO ONE (21:10)
[2018-02-26] MEDS ORDERED: levETIRAcetam 250 MG TABLET PO SCH ×2 (06:00→18:00)
[2018-02-26 07:21] LABS: BUN/Creatinine Ratio 15 (6-26); Blood Urea Nitrogen 15 mg/dL (8-23); Calcium 8.9 mg/dL (8.6-10.3); Carbon Dioxide 28 mEq/L (23-29); Chloride 109 mEq/L (98-107); Glucose 95 mg/dL (70-105); Osmolality,Calculated 295 (280-300); Phosphorous 3.6 mg/dL (2.7-4.5); Sodium 142 mEq/L (136-145); eGFR For Non-African Americans > 60 (> 60)
[2018-02-26] MEDS: *HR* Dabigatran 150 MG CAPSULE PO SCH (08:19)
--- NOTE | 2018-02-26 08:26 | Neurology - Consult Note ---
Addendum entered and electronically signed by Aubrey Rojas MD 02/26/18 10:53: Patient is seen and examined in the presence of Dr. Johnny Reilly. I agree with his history taking, physical examination, assessment and plan. In summery, this is a 62 year old man with known seizure disorder, on primidone monotherapy, who developed two witnessed breakthrough seizures, likely related to not taking seizure medication as directed. Suppose to take primidone 250mg qid but ran out of medication for about 4 days per history. Would keep on Keppra 500mg bid and Primidone 250mg qid and follow up with Dr. Parveen Fernando in one week. May benefit from switching antiepileptic therapy but would defer this decision to his primary neurologist Patient is back to baseline at the time of this interview. There does not appear to be any other provoking factors other than not taking primidone as directed. Original Note: Date of Encounter: 02/26/18 Time of Encounter: 08:25 Assessment and Plan (1) Seizure Current Visit: Yes Status: Acute - Patient presented after having a tonic-clonic seizure, was initially discharged, then came back after having another episode - Patient has a known history of seizure disorder; has had seizures since age 11 - Patient has been on Prandin since he started seeing neurology in the outpatient setting, but stated that he ran out of his medications last week - Seizure was described as tonic-clonic; second episode was associated with tongue biting - She denied having any urinary incontinence, visual disturbances, numbness, tingling, weakness - CT scan of the head was unremarkable - Patient was given a loading dose of Keppra 1000 mg in the emergency department - Was subsequently started on Keppra 500 mg by mouth every 12 hours - Urine drug screen is ordered and is currently pending Plan: - Continue Keppra 500 mg by mouth every 12 hours; patient can be discharged - We will recommend follow-up visit with neurology in the outpatient setting in 1-2 weeks for medication management History of Present Illness HPI: Edward Harris is a 62 year old male with a PMH of DVT, hyperlipidemia, hypertension, PE, and seizures who presented to [facility] ED on 02/25/18 with a chief complaint of seizures. He initially presented after his girlfriend found him having a tonic-clonic seizure of 5 minutes duration. Patient was found to be oriented in the emergency department and was initially discharged. However, he had another seizure and presented again. During this second episode, he had tongue biting. There was no associated visual changes, numbness, tingling, weakness, headache, or incontinence. Patient does have a known history of seizure disorder starting from age 11 that lasted until 2006. Patient was previously on several medications including Dilantin, primidone, and phenobarbital. Patient was seen by Dr. Fernando in the outpatient setting. In 2017, patient had another seizure. He has been on primodone since, but stated that he had run out of his medications last week and did not follow-up with his allergy appointment. Upon arrival to the ED, patients vital signs were significant for an elevated pulse at 96 bpm and a respiratory rate of 20. Blood pressure was elevated at 155/74. All other vitals were within normal limits. Laboratory analysis was unremarkable. CT scan of the head demonstrated no acute intracranial abnormali ty, with improving left mastoiditis seen on prior exam. Patient was given a 1000 mg loading dose of Keppra. Was then started on Keppra 500 mg by mouth every 12 hours. Urine drug screen was ordered and is currently pending. The patient seen and examined at bedside; he states that he is feeling well. He has had no seizures since he has been in the hospital. Denies having any confusion, weakness, fatigue, visual disturbances, headache, dizziness, vertigo, lightheadedness, or incontinence. Patient says that after his seizures, he did not have any memory loss. He has no further complaints. Past Med Surg Social Fam HX - Past Medical History Medical history: DVT, hyperlipidemia, hypertension, pulmonary embolus, seizures Additional medical history: blood clots, mild mrdd Psychiatric history: no psych history - Past Surgical History Surgical History: other Additional surgical history: merissa place then removed - Social History Smoking Status: Former smoker Smokeless Tobacco Status: No Alcohol use: none Drug use: none - Family History Mother Adopted: No Living Status: Still Living Hx Family Cardiac Disorders: Yes Hx Family GI Disorders: Yes (Diverticulitis) Father Living Status: Hx Family Cancer: Yes (kidney cancer) Medications and Allergies Atorvastatin [Lipitor] 40 mg PO HS 07/28/16 [History] amLODIPine [Norvasc] 5 mg PO DAILY #30 tablet 07/30/16 [Rx] Dabigatran [Pradaxa] 150 mg PO BID #60 capsule 06/01/17 [Rx] Primidone [Mysoline] 250 mg PO QID #40 tablet 02/20/18 [Rx] HydrOXYzine 10 mg PO TID 02/25/18 [History] Allergy/AdvReac Type Severity Reaction Status Date / Time No Known Allergies Allergy Verified 02/25/18 11:29 All Systems: The remainder of the systems were reviewed and are negative - Constitutional Constitutional ROS IM: as per HPI, no lethargy, no weakness - Musculoskeletal Musculoskeletal ROS IM: as per HPI, no numbness, no tingling - Neurological Neurological ROS: as per HPI, no abnormal gait, no abnormal speech, no confusi on, no convulsions, no dizziness, no focal weakness, no headache(s), no loss of vision, no memory loss, no numbness, no paresthesias, no tingling, no vertigo, no weakness Physical Examination - Vital Signs Vital Signs: Initial Vital Signs Temp Pulse Resp BP Pulse Ox 98.2 F 96 20 155/74 95 02/25/18 14:33 02/25/18 14:33 02/25/18 14:33 02/25/18 14:33 02/25/18 14:33 - Constitutional General appearance: comfortable - Neurologic Sensorimotor examination: intact Motor examination - right side: 5/5: deltoids, biceps, triceps, wrist flexion, wrist extension, auto dealer, toe extension (EHL), plantarflexion Motor examination - left side: 5/5: deltoids, biceps, triceps, wrist flexion, wrist extension, auto dealer, toe extension (EHL), plantarflexion Detailed sensory examination: intact Reflex and gait examination: intact Reflexes: Brachioradialis: 2+, Patella: 2+ Mental Status Examination: awake, alert, oriented to person, oriented to place, oriented to time, follows commands appropriately, answers questions appropriately Cranial nerve examination: PERRL, EOMI, visual bedolla intact Results - Laboratory Findings CBC and BMP: 02/26/18 06:48 Abnormal lab findings: Abnormal lab results Chloride 109 mEq/L (98-107) H 02/26/18 06:48 POC Glucose 116 mg/dL (70-99) H 02/25/18 14:41 Consult Discharge Plan - Plan Referrals: Eleonora Garcia, [employer] [Primary Care Provider] - 03/03/18 10:00 am
[2018-02-26] MEDS ORDERED: amLODIPine 5 MG TABLET PO SCH (09:00)
[2018-02-26 09:46] LABS: Amphetamine Screen,Urine Negative ng/mL (Cutoff=1000); Barbiturate Screen,Urine Positive ng/mL (Cutoff=200); Benzodiazepines Screen,Urine Negative ng/mL (Cutoff=300); Cannabinoid Screen,Urine Negative ng/mL (Cutoff = 50)
[2018-02-26 09:47] LABS: Cocaine Screen,Urine Negative ng/mL (Cutoff= 300); Opiate Screen,Urine Negative ng/mL (Cutoff=300); Phencyclidine Screen,Urine Negative ng/mL (Cutoff=25)
[2018-02-26 10:57] VITALS: BP 139/83
--- NOTE | 2018-02-26 13:16 | Discharge Summary ---
<Gelacio Aguila - Last Filed: 02/26/18 13:40> Date of Encounter: 02/26/18 Time of Encounter: 13:16 - Discharge Diagnosis (1) History of hyperlipidemia Priority: Secondary Status: Acute Assessment and Plan: Continue atorvastatin (2) Seizure Priority: Primary Status: Acute Assessment and Plan: Since April of last year patient has had multiple seizure episodes Currently stable without headaches, visual or auditory disturbances, focal neuro deficits. Patient of Dr. Lafleur and on Primidone 240mg QID Since this morning patient has had 2 episodes of seizures after running out of primidone for 4 days. Patient received 1g loading dose ofKeppra in ED and started on [address] head negative Per neuro recommendations patient will be disrcharged on Keppra 500 mg BID and Primidone 250mg QID Folow up visit to neurology outpatient 1-2 weeks (3) History of pulmonary embolism Priority: Secondary Status: Acute Assessment and Plan: Patient has a history of PE and DVT and was initially on Coumadin and then xeralto He was then transitioned to Pradaxa secondary to xeralto's interaction with primidone Continue Pradaxa (4) History of hypertension Priority: Secondary Status: Acute Assessment and Plan: Controlled continue amlodipine Hospital course: 62 YO M presenting with seizure. The patient arrived to the ED via EMS on 02/25/18 for an episode of tonic-clonic seizures the morning prior. He has a history of seizures since childhood, but had ran out of his prescription of primidone this week and has had 3 breakthrough seizures within the last 6 months. He was given an IV loading dose of 1,000mg of levetiracetam in the ED, and then switched to 500mg PO levetiracetam BID for the duration of his admiss ion. He tolerated the treatment well. Head CT was ordered due to his anticoagulation medication, and showed no evidence of an intracranial bleed. He has not had a seizure since admission and neurological status has remained stable for the duration of his stay. Neurology was consulted and he was discharged per their recommendations of continuing levotiracetam PO 500mg BID and primidone PO 250mg QID and following up with neurologist Dr. Parveen Fernando in 1 week for medication management. Discharge discussed with: patient - Time Spent with Patient Total time spent providing and/or coordinating discharge services: - Discharge Medications Prescriptions: LevETIRAcetam [Keppra] 500 mg PO BID 30 Days #60 tablet Primidone [Mysoline] 250 mg PO QID 30 Days #120 tablet Home Medications: Atorvastatin [Lipitor] 40 mg PO HS 07/28/16 [History] amLODIPine [Norvasc] 5 mg PO DAILY #30 tablet 07/30/16 [Rx] Dabigatran [Pradaxa] 150 mg PO BID #60 capsule 06/01/17 [Rx] Primidone [Mysoline] 250 mg PO QID #40 tablet 02/20/18 [Rx] HydrOXYzine 10 mg PO TID 02/25/18 [History] LevETIRAcetam [Keppra] 500 mg PO BID 30 Days #60 tablet 02/26/18 [Rx] Primidone [Mysoline] 250 mg PO QID 30 Days #120 tablet 02/26/18 [Rx] Allergies/Adverse Reactions: Allergy/AdvReac Type Severity Reaction Status Date / Time No Known Allergies Allergy Verified 02/25/18 11:29 Date of admission: 02/25/18 16:55 Primary care physician: Eleonora Garcia CNP Consults: 02/25/18 15:17 Consult to Neurology [CONS] Stat Consulting Provider: Neurology [facility] Reason for Consult: seizure Call Completed: Yes - Constitutional Vitals: Temp Pulse Resp BP Pulse Ox 97.3 F L 63 16 139/83 99 02/26/18 10:54 02/26/18 10:54 02/26/18 10:54 02/26/18 10:54 02/26/18 10:54 General appearance: Present: A&O X 3, pleasant, no acute distress, answers questions appropriately Exam: / - Head Head exam: Present: atraumatic, normal inspection - Eye Eye exam: Present: EOMI, normal appearance. Absent: nystagmus - Neck Neck exam general surgery: Present: supple, trachea midline - Respiratory Respiratory exam: Present: CTAB - Cardiovascular Cardiovascular exam: Present: RRR, +S1, +S2 - GI/Abdominal GI/Abdominal exam: Present: normal bowel sounds. Absent: tenderness - Extremities Exam Extremities exam: Present: normal inspection - Neurological Exam Neurological exam: Present: alert, CN II-XII intact, oriented X3, no focal deficits, strengths equal and symetr throughout. Absent: altered, motor sensory deficit, pronater drift, facial droop, speech deficit - Skin Skin exam: Present: dry, intact, warm - Patient Status Disposition: Home, Self-Care Condition: Good - Discharge Instructions Follow Up With: Eleonora Garcia CNP [Primary Care Provider] - 03/03/18 10:00 am Parveen Fernando DO [Partnered Physician] - 03/05/18 - Diet and Activity Activity: resume usual activities as tolerated Diet: regular diet <Aissatou Law - Last Filed: 02/26/18 15:13> - NOTES TO OUTPATIENT PROVIDER Notes to Outpatient Provider: NO DRIVING until 6 months seizure free and cleared to do so by his neurologist. Pt aware. Started on Keppra in addition to home Primidone. Date of Encounter: 02/26/18 - Discharge Diagnosis (1) History of hyperlipidemia Status: Acute (2) Seizure Status: Acute (3) History of pulmonary embolism Status: Acute (4) History of hypertension Status: Acute Hospital course: Mr. Pierre is a 62 year old male - Time Spent with Patient Total time spent providing and/or coordinating discharge services: Less than 30 minutes (25 min) Date of admission: 02/25/18 16:55 Primary care physician: Eleonora Garcia CNP Consults: 02/25/18 15:17 Consult to Neurology [CONS] Stat Consulting Provider: Neurology [facility] Reason for Consult: seizure Call Completed: Yes Discharging clinician: Gelacio Aguila - Constitutional Vitals: Temp Pulse Resp BP Pulse Ox 97.3 F L 63 16 139/83 99 02/26/18 10:54 02/26/18 10:54 02/26/18 10:54 02/26/18 10:54 02/26/18 10:54 - Patient Status Overall status at discharge: patient is back to baseline - Diet and Activity Activity: other (NO DRIVING until cleared by Neuro after 6 months seizure free period) Diet: low salt diet - Attending Attestation I examined this patient and my medical decision-making was reviewed with the Resident Physician Dr Aguila. I agree with the documented findings, disposition and treatment plan as described except to the extent set forth below. Mr Pierre has history of seizure disorder and is being observed for recurrent seizure secondary to med non compliance in recent weeks as admitted by pt. awake, pleasant, no further seizure like activity. no complaints and feeling baseline. gen- alert, awake,appears stated age eyes- pupils equal round cv- reg rate and rhythm, normal s1,s2, no murmurs appreciated, trace dependent le edema lungs- ctabl, no wheezing, rhonchi or crackles, normal resp effort neuro- AAOx3, CN grossly intact, no focal deficits Seizures 2/2 med non compliance- neuro followed, cont home primidone and cont new keppra 500 mg bid, fu with Dr Fernando at scheduled appt and no driving HTN- cont home norvasc Hx PE- cont pradaxa further diagnoses and plan as noted by resident medically stable for dc to home, no driving, pt aware time spent on dc 25 min
== END 2018-02-26 16:05 | disposition home or self-care (01) ==
LOC: 3BNU 14:27 → EMEROOARM 14:27 → 3BNU 18:20
PROVIDERS: ADMIT Hospitalist; ATTEND Hospitalist

== ENCOUNTER 2018-06-02 12:00 | Observation (INO) ==
[2018-06-02] MEDS ORDERED: levETIRAcetam 1,000 MG in 0.9 % Sodium Chloride 100 ML IVPB ONE (12:08)
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
[2018-06-02 12:23] LABS: Basophils # 0.1 K/mcL (0.0-0.2); Basophils % 0.7 %; Eosinophils # 0.1 K/mcL (0.0-0.6); Eosinophils % 1.2 %; Hematocrit 45.5 % (37.5-50.1); Hemoglobin 14.8 g/dL (12.9-16.9); Immature Granulocytes % 0.4 % (0-4); Lymphocytes # 1.9 K/mcL (0.6-4.6); Lymphocytes % 22.8 %; Mean Corpuscular HGB Conc 32.5 g/dL (31.6-35.5); Mean Corpuscular Hemoglobin 28.4 pg (28.0-33.3); Mean Corpuscular Volume 87.2 fL (83.0-100.0); Mean Platelet Volume 12.3 fL (9.4-12.4); Monocytes # 0.6 K/mcL (0.0-1.3); Monocytes % 7.2 %; Neutrophils # 5.6 K/mcL (1.6-8.9); Platelet Count 249 K/mcL (140-400); Red Blood Count 5.22 M/mcL (4.19-5.50); Red Cell Distribution Width 14.3 % (11.5-14.5); Segmented Neutrophils % 67.7 %
[2018-06-02 12:34] LABS: INR 1.1; Prothrombin Time 12.8 Seconds (9.4-12.1)
[2018-06-02 12:36] LABS: Activated Partial Thrombo Time 42.9 Seconds (26.0-36.0)
[2018-06-02 12:42] LABS: Alanine Aminotransferase 64 Units/L (7-52); Albumin 4.1 g/dL (3.5-5.7); Albumin/Globulin Ratio 1.4 (1.1-2.2); Alkaline Phosphatase 115 Units/L (34-104); Aspartate Amino Transferase 37 Units/L (13-39); BUN/Creatinine Ratio 12 (6-26); Bilirubin,Direct 0.3 mg/dL (0.0-0.2); Bilirubin,Total 1.3 mg/dL (0.3-1.0); Blood Urea Nitrogen 14 mg/dL (8-23); Calcium 9.3 mg/dL (8.6-10.3); Carbon Dioxide 26 mEq/L (23-29); Chloride 104 mEq/L (98-107); Ethanol < 10 mg/dL (Less than 10); Glucose 114 mg/dL (70-105); Osmolality,Calculated 291 (280-300); Potassium 3.7 mEq/L (3.5-5.1); Sodium 140 mEq/L (136-145); Total Protein 7.1 g/dL (6.4-8.9); eGFR For Non-African Americans > 60 (> 60)
[2018-06-02 12:52] LABS: Troponin I 0.03 ng/mL (< 0.04)
[2018-06-02 13:04] LABS: Thyroid Stimulating Hormone 0.979 mcIU/mL (0.340-5.600)
[2018-06-02 14:35] LABS: Bilirubin,Urine Negative (Negative); Blood,Urine Negative (Negative); Clarity,Urine Clear (Clear); Color,Urine Yellow (Yellow); Glucose,Urine (UA) Normal (Normal); Ketones,Urine Negative (Negative); Leukocyte Esterase,Urine Negative (Negative); Nitrite,Urine Negative (Negative); Protein,Urine Negative (Neg-Trace); Specific Gravity,Urine 1.009 (1.010-1.025); Urobilinogen,Urine Normal (Normal)
[2018-06-02 15:00] LABS: Amphetamine Screen,Urine Negative ng/mL (Cutoff=1000); Barbiturate Screen,Urine Negative ng/mL (Cutoff=200); Benzodiazepines Screen,Urine Negative ng/mL (Cutoff=200); Cannabinoid Screen,Urine Negative ng/mL (Cutoff = 50); Cocaine Screen,Urine Negative ng/mL (Cutoff= 300); Opiate Screen,Urine Negative ng/mL (Cutoff=300); Phencyclidine Screen,Urine Negative ng/mL (Cutoff=25)
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
[2018-06-02] MEDS ORDERED: *HR* Promethazine 25 MG/ML VIAL IVP PRN (17:23)
[2018-06-02] MEDS ORDERED: Naloxone 0.4 MG/ML INJ IVP PRN (17:23)
[2018-06-02] MEDS ORDERED: Ondansetron 4 MG/2 ML VIAL IVP PRN (17:23)
[2018-06-02] MEDS ORDERED: Acetaminophen 325 MG TABLET PO PRN (17:23)
[2018-06-02] MEDS ORDERED: Mag Hydrox/Al Hydrox/Simeth 30 ML UDC PO PRN (17:23)
--- NOTE | 2018-06-02 17:39 | Internal Med History&Physical ---
Date of Encounter: 06/02/18 Time of Encounter: 17:29 Internal Medicine - H&P: HPI Admitted From: Home Plans for Post Hospital Care: Home History of present illness: Mr. Pierre is a 62 year old male with has medical history of epilepsy, PE, hypertension, and DVT who was brought by EMS because of mental status change. Patient was altered and cannot provide a reliable history. He stated that he cannot remember what happened to him in the past 3 days. He remembers that he ate a cheeseburger sent which yesterday evening which was brought by his friend, however, he cannot recall the name of his friends. When questioned about a what happened today to him, he stated he cannot remember anything. Patient currently living at home with his girlfriend, he provided me with his girlfriend phone number. After I called her, she confirmed that patient had several seizure the day before yesterday. He became progressively more confused yesterday and today, he cannot take tell himself, therefore the EMS was called by the girlfriend, the patient was brought here. Patient stated that he has been compliant with seizure medication. He has no recent travel or sick contact. He denies any fever, chills, or night sweats. He has no headache, numbness, or weakness. Upon arrival, patient received 1 dose of IV thiamine and 1000 mg Keppra. Labs were unremarkable besides slightly elevated total bilirubin, ALT, and ALP. Urine was normal and a drug screen was negative. Chest x-ray and a CT head both were unremarkable. Patient was admitted for further evaluation. Status discussed with patient, due to mental status issue, full code was def erred. Past Med Surg Social Fam HX - Past Medical History Medical history: DVT, hyperlipidemia, hypertension, pulmonary embolus, seizures Additional medical history: blood clots, mild mrdd Psychiatric history: no psych history - Past Surgical History Surgical History: other Additional surgical history: ivc filter - Social History Smoking Status: Former smoker Smokeless Tobacco Status: No Alcohol use: none Drug use: none - Family History Mother Adopted: No Living Status: Still Living Hx Family Cardiac Disorders: Yes Hx Family GI Disorders: Yes (Diverticulitis) Father Living Status: Hx Family Cancer: Yes (kidney cancer) Internal Medicine - H&P: Meds Atorvastatin [Lipitor] 40 mg PO HS 07/28/16 [History] amLODIPine [Norvasc] 5 mg PO DAILY #30 tablet 07/30/16 [Rx] Dabigatran [Pradaxa] 150 mg PO BID #60 capsule 06/01/17 [Rx] LevETIRAcetam [Keppra] 1,000 mg PO BID 04/27/18 [History] Primidone [Mysoline] 250 mg PO DAILY 06/02/18 [History] Allergy/AdvReac Type Severity Reaction Status Date / Time No Known Allergies Allergy Verified 02/25/18 11:29 All Systems PM: A 10-system review of systems was performed and is negative for pertinent findings except as documented above in the HPI. Review of systems: REVIEW OF SYSTEMS: CONSTITUTIONAL: No weight loss, fever, chills, weakness or fatigue. HEENT: Eyes: No visual loss, blurred vision, double vision or yellow sclerae. Ears, Nose, Throat: No hearing loss, sneezing, congestion, runny nose or sore throat. SKIN: No rash or itching. CARDIOVASCULAR: No chest pain, chest pressure or chest discomfort. No palpitations or edema. RESPIRATORY: No shortness of breath, cough or sputum. GASTROINTESTINAL: No anorexia, nausea, vomiting or diarrhea. No abdominal pain or blood. GENITOURINARY: No dysuria, urgency, or frequency. NEUROLOGICAL: see HPI. MUSCULOSKELETAL: No muscle, back pain, joint pain or stiffness. HEMATOLOGIC: No anemia, bleeding or bruising. LYMPHATICS: No enlarged nodes. No history of splenectomy. PSYCHIATRIC: No history of depression or anxiety. ENDOCRINOLOGIC: No reports of sweating, cold or heat intolerance. No polyuria or polydipsia. - Constitutional Vitals: Temp Pulse Resp BP Pulse Ox 98.2 F 54 16 131/76 98 06/02/18 12:02 06/02/18 16:08 06/02/18 16:08 06/02/18 16:08 06/02/18 16:08 General appearance: Present: A&O X 1 Exam: PHYSICAL EXAMINATION: GENERAL APPEARANCE: The patient is alert, oriented and in no acute distress. HEENT: Head is normocephalic. The sinuses are nontender. Pupils are equal and reactive. The nares are patent. Oropharynx clear without lesions. NECK: Supple without lymphadenopathy. HEART: Regular rate and rhythm. LUNGS: No crackles or wheezes are heard. ABDOMEN: Soft, nontender, nondistended with good bowel sounds heard. Inguinal area is normal. EXTREMITIES: Without cyanosis, clubbing or edema. NEUROLOGICAL: Gross nonfocal. SKIN: Warm and dry without any rash. Internal Med - H&P Results - Labs CBC & Chem 7: 06/02/18 12:11 06/02/18 12:11 Labs: Short CBC 06/02/18 Range/Units 12:11 WBC 8.2 (4.3-11.1) K/mcL Hgb 14.8 (12.9-16.9) g/dL Hct 45.5 (37.5-50.1) % Plt Count 249 (140-400) K/mcL Neutrophils # 5.6 (1.6-8.9) K/mcL BMP 06/02/18 12:11 Sodium 140 Potassium 3.7 Chloride 104 Carbon Dioxide 26 BUN 14 Creatinine 1.16 Glucose 114 H Calcium 9.3 Cardiac Enzymes 06/02/18 Range/Units 12:11 Troponin I 0.03 (< 0.04) ng/mL Liver Function 06/02/18 Range/Units 12:11 Total Bilirubin 1.3 H (0.3-1.0) mg/dL Direct Bilirubin 0.3 H (0.0-0.2) mg/dL AST 37 (13-39) Units/L ALT 64 H (7-52) Units/L Alkaline Phosphatase 115 H (34-104) Units/L Albumin 4.1 (3.5-5.7) g/dL Urine 06/02/18 Range/Units 14:05 Urine Color Yellow (Yellow) Urine Clarity Clear (Clear) Urine pH 6.0 (5.0-8.0) pH Units Ur Specific [place] 1.009 L (1.010-1.025) Urine Protein Negative (Neg-Trace) mg/dL Urine Glucose (UA) Normal (Normal) mg/dL - Impressions ITS Impressions Chest X-Ray 06/02/18 12:09 IMPRESSION: 1. No active pulmonary disease. D/ / Tato Joseph MD / Tato Joseph MD Interpreting Provider: Tato Joseph MD Head CT 06/02/18 12:10 IMPRESSION: No acute intracranial abnormality. D/ / My Urias MD / My Urias MD Interpreting Provider: My Urias MD - Assessment and Plan (1) Altered mental status Current Visit: Yes Status: Acute Assessment and plan: 52-year-old male with past medical history of epilepsy, hypertension, PE, DVT, and hypertension presented with acute onset of mental status change. He was witnessed having several seizure 2 days ago, since then, his mental status deteriorated, which was manifested as memory loss and inability to perform ADL. Based on the history, patient likely had a status epilepticus 2 days ago. His seizure most likely was uncontrolled since then. he received 1000 mg Keppra and IV thiamine at the ED. He remained confused and had memory loss. He takes Mysoline and Keppra at home. Unclear the etiology of seizure, AED overdose or non-compliance. Will check Keppa level. Continue Keppra and mysoline. MRI brain to rule out acute encephalitis. Neuro consult. Qualifiers: Altered mental status type: delirium Qualified Code(s): R41.0 - Disorientation, unspecified (2) Epileptic seizure Current Visit: No Status: Acute Assessment and plan: same as above. Qualifiers: Epilepsy type: unspecified Intractability: not intractable Status epilepticus: without status epilepticus Qualified Code(s): G40.909 - Epilepsy, unspecified, not intractable, without status epilepticus (3) DVT (deep venous thrombosis) Current Visit: No Status: Acute Assessment and plan: continue Pradaxa. Qualifiers: DVT location: lower extremity Affected thrombotic vein of extremity: femoral Chronicity: acute Laterality: right Qualified Code(s): I82.411 - Acute embolism and thrombosis of right femoral vein (4) HTN (hypertension) Current Visit: No Status: Acute Assessment and plan: continue monitoring. Qualifiers: Hypertension type: essential hypertension Qualified Code(s): I10 - Essential (primary) hypertension (5) DVT prophylaxis Current Visit: No Status: Acute Assessment and plan: Pradaxa. - Time Spent With Patient Total time spent is greater than 50% in coordination of care (as documented) at patient's floor/unit and/or counseling patient: Greater than 35 minutes
[2018-06-02] MEDS ORDERED: Thiamine (B-1) 100 MG, Folic Acid 1 MG, MVI, adult with vitamin K 10 ML in 0.9 % Sodi... IVPB SCH (18:00)
[2018-06-02 18:30] LABS: Alanine Aminotransferase 64 Units/L (7-52); Albumin/Globulin Ratio 1.4 (1.1-2.2); Alkaline Phosphatase 109 Units/L (34-104); Aspartate Amino Transferase 41 Units/L (13-39); BUN/Creatinine Ratio 12 (6-26); Bilirubin,Total 1.1 mg/dL (0.3-1.0); Blood Urea Nitrogen 14 mg/dL (8-23); Calcium 9.4 mg/dL (8.6-10.3); Carbon Dioxide 26 mEq/L (23-29); Chloride 104 mEq/L (98-107); Globulin 2.8 g/dL (2.4-3.5); Glucose 89 mg/dL (70-105); Osmolality,Calculated 284 (280-300); Potassium 3.6 mEq/L (3.5-5.1); Sodium 137 mEq/L (136-145); Total Protein 6.8 g/dL (6.4-8.9); eGFR For Non-African Americans > 60 (> 60)
[2018-06-02 18:59] LABS: Vitamin B12 457 pg/mL (250-1100)
[2018-06-02 19:37] LABS: Hepatitis B Surface Antigen Nonreactive (Nonreactive)
[2018-06-02 20:05] LABS: Hepatitis C Virus Antibody Nonreactive (Nonreactive)
[2018-06-02 20:06] LABS: Hepatitis B Core IgM Nonreactive (Nonreactive)
[2018-06-02 20:09] LABS: Hepatitis A Antibody IgM Reactive (Nonreactive)
[2018-06-02 20:17] LABS: Bilirubin,Urine Negative (Negative); Blood,Urine Negative (Negative); Clarity,Urine Clear (Clear); Color,Urine Yellow (Yellow); Glucose,Urine (UA) Normal (Normal); Ketones,Urine 15 mg/dL (Negative); Leukocyte Esterase,Urine Negative (Negative); Nitrite,Urine Negative (Negative); Protein,Urine Negative (Neg-Trace); Specific Gravity,Urine 1.018 (1.010-1.025); Urobilinogen,Urine Normal (Normal)
[2018-06-02] MEDS: *HR* Dabigatran 150 MG CAPSULE PO SCH (21:54)
[2018-06-02] MEDS: levETIRAcetam 250 MG TABLET PO SCH (21:54)
[2018-06-02] MEDS: 0.9 % Sodium Chloride 1,000 ML IVC SCH (21:56)
[2018-06-02 22:44] LABS: HIV-1&2 Antibody & p24 Ag Nonreactive (Nonreactive)
[2018-06-03 04:40] LABS: Basophils # 0.1 K/mcL (0.0-0.2); Basophils % 0.7 %; Eosinophils # 0.2 K/mcL (0.0-0.6); Eosinophils % 2.7 %; Hematocrit 42.3 % (37.5-50.1); Hemoglobin 13.6 g/dL (12.9-16.9); Immature Granulocytes % 0.3 % (0-4); Lymphocytes # 2.5 K/mcL (0.6-4.6); Mean Corpuscular HGB Conc 32.2 g/dL (31.6-35.5); Mean Corpuscular Hemoglobin 28.6 pg (28.0-33.3); Mean Corpuscular Volume 89.1 fL (83.0-100.0); Mean Platelet Volume 12.3 fL (9.4-12.4); Monocytes # 0.7 K/mcL (0.0-1.3); Monocytes % 9.8 %; Neutrophils # 3.7 K/mcL (1.6-8.9); Platelet Count 224 K/mcL (140-400); Red Blood Count 4.75 M/mcL (4.19-5.50); Red Cell Distribution Width 14.6 % (11.5-14.5); Segmented Neutrophils % 51.5 %
[2018-06-03 04:56] LABS: Magnesium 2.4 mg/dL (1.6-2.6); Phosphorous 3.7 mg/dL (2.7-4.5)
--- NOTE | 2018-06-03 06:37 | Electrocardiograph Report ---
[facility] [employer] Test Date: 2018-06-02 Pat Name: Edward Pierre Department: [id number] Room: 3B11 Gender: M Residential Installer: : [id number] Requested By: Efraín Lisa Order Number: [id number] Reading MD: Abebe Vallecillo Measurements Intervals [place] Rate: 63 P: 29 FL: 178 QRS: -9 QRSD: 117 T: 23 QT: 418 QTc: 428 Interpretive Statements Sinus rhythm Nonspecific intraventricular conduction delay Electronically Signed On 06-03-2018 6:35:48 EDT by Abebe Vallecillo
[2018-06-03] MEDS: 0.9 % Sodium Chloride 1,000 ML IVC SCH (08:38)
[2018-06-03] MEDS: levETIRAcetam 250 MG TABLET PO SCH ×2 (08:38→21:11)
[2018-06-03] MEDS: amLODIPine 5 MG TABLET PO SCH (08:38)
[2018-06-03] MEDS: *HR* Dabigatran 150 MG CAPSULE PO SCH ×2 (08:38→21:11)
--- NOTE | 2018-06-03 08:40 | Neurology - Consult Note ---
<Frank Garibay - Last Filed: 06/03/18 11:20> Date of Encounter: 06/03/18 Time of Encounter: 09:08 Assessment and Plan (1) Altered mental status Current Visit: Yes Status: Resolved - Unclear etiology however may be very well related to known seizure disorder - History is unclear as patient is not able to remember course of events - No identifiable seizures threshold lowering changes - May have an early underlying dementia. - Patient does have a history of noncompliance on medications although today during interview he does state he has not missed a dose - Labs and imaging thus far revealed no metabolic source - Patient states that he has returned to his baseline. He is alert and oriented 4 this morning with no neurological deficits on physical exam - Did receive 1 g of Keppra upon arrival to this facility - Keppra level appropriate. - MRI of the brain was obtained and showed no acute intracranial abnormality as well as possible otomastoiditis. Patient is asymptomatic Plan - Recommend continuing home medications of primidone 250 mg daily as well as Keppra 1000 mg twice a day - Will order primidone level. - No further workup recommended at this time and he should follow up with neurologist as outpatient Qualifiers: Altered mental status type: delirium Qualified Code(s): R41.0 - Disorientation, unspecified (2) Seizure Current Visit: Yes Status: Chronic - As above - Potential cause of altered mental status - Management as above History of Present Illness Chief complaint: Altered mental status HPI: Mr. Pierre is a 62 year old male with past medical history of epilepsy, pulmonary embolism, hypertension who was brought by EMS to the emergency department for reported mental status changes. Of note, patient states he does not have a lot of memory of preceding events unable to provide a reliable history. There is no family present at bedside to corroborate story. Majority of history is obtained through chart review. Patient states that he was told to come to the emergency department by his girlfriend who noticed not being himself. He was reportedly confused and believes he may have had a seizure at that time. He states that his girlfriend did notice some epileptic movements but denies any bowel or bladder incontinence. He states he normally does not experience a post ictal confusion. He is unsure how often he does experience breakthrough seizures. He is not sure how long the seizure lasted. Patient states the last thing he remembers is EMS arriving at his home. He states he has been compliant on antiepileptics and has not missed a single dose. Per chart review, patient reportedly had a seizure one day prior to admission and has become increasingly confused since that time. He does not endorse any recent illness including fevers, chills, chest pain, shortness of breath, nausea, vomiting, diarrhea, urinary symptoms. Per last neurology note with Dr. Fernando, patient does have a history of noncompliance on antiepileptics. He is currently taking primidone 250 mg daily as well as Keppra 1000 mg twice a day. He was continuing to have breakthrough seizures at that time and medications were dosed adjusted at that visit for a more convenient schedule. He did miss his follow-up appointment 3 days ago. Upon arrival to the emergency room, vital signs were within normal limits. Laboratory results were significant for a mildly elevated bilirubin of 1.1 with direct predominance. AST and ALTs were also mildly elevated at 41 and 64 respectively. Kidney function, ammonia levels, troponin and CRP with all within normal limits. TSH was also within normal limits and urinalysis showed mild ketosis but otherwise no evidence of infection. Urine drug screen was also obtained and showed no evidence of acute intoxication. Viral hepatitis panel did reveal positive hepatitis A IgM antibody, negative hepatitis B, C, HIV, syphilis antibody. EKG obtained emergency department shows normal sinus rhythm. Chest x-ray showed no acute process. CT of the head was also negative for acute process. MRI was also obtained and showed no acute intracranial abnormality but did show fluid within the left middle ear and left mastoid air cells potentially indicating otomastoiditis. Today during examination, patient is alert and oriented 4 but still does not remember preceding events prior to admission. He currently denies any symptoms and feels that he is back to his baseline. Past Med Surg Social Fam HX - Past Medical History Medical history: DVT, hyperlipidemia, hypertension, pulmonary embolus, seizures Additional medical history: blood clots, mild mrdd Psychiatric history: no psych history - Past Surgical History Surgical History: other Additional surgical history: ivc filter - Social History Smoking Status: Former smoker Smokeless Tobacco Status: No Alcohol use: none Drug use: none - Family History Mother Adopted: No Living Status: Still Living Hx Family Cardiac Disorders: Yes Hx Family GI Disorders: Yes (Diverticulitis) Father Living Status: Hx Family Cancer: Yes (kidney cancer) Medications and Allergies Atorvastatin [Lipitor] 40 mg PO HS 07/28/16 [History] amLODIPine [Norvasc] 5 mg PO DAILY #30 tablet 07/30/16 [Rx] Dabigatran [Pradaxa] 150 mg PO BID #60 capsule 06/01/17 [Rx] LevETIRAcetam [Keppra] 1,000 mg PO BID 04/27/18 [History] Primidone [Mysoline] 250 mg PO DAILY 06/02/18 [History] Allergy/AdvReac Type Severity Reaction Status Date / Time No Known Allergies Allergy Verified 02/25/18 11:29 All Systems: The remainder of the systems were reviewed and are negative Review of Systems: - Constitutional: Denies fevers, chills, weight loss, generalized fatigue - Head/Neck: Denies GRIJALVA, neck stiffness - EENT: Denies vision changes/blurriness, rhinorrhea, congestion, sore throat, odynaphagia - CVS: Denies chest pain, palpitations, [place], orthopnea, edema, PND, - Pulm: Denies SOB, cough, sputum - GI: Denies abdominal pain, anorexia, nausea, vomiting, diarrhea, constipation - : Denies dysuria, increased frequency, urgency, hematuria, incontinence - Skin: Denies rashes, ulcers, color changes, - Neuro: Admits to confusion, seizures. Denies GRIJALVA, paresthesias, focal deficits, ataxia, Physical Examination - Vital Signs Vital Signs: Initial Vital Signs Temp Pulse Resp BP Pulse Ox 98.2 F 63 16 108/87 97 06/02/18 12:02 06/02/18 12:02 06/02/18 12:02 06/02/18 12:02 06/02/18 12:02 - Constitutional General appearance: comfortable, younger than stated age - Neurologic Sensorimotor examination: intact Detailed motor examination: grossly full strength in all extremities, full strength in all major muscle groups Motor examination - right side: 5/5: deltoids, biceps, triceps, systems coordinator, hip flexors, tibialis Anterior, quadriceps, toe extension (EHL), plantarflexion Motor examination - left side: 5/5: deltoids, biceps, triceps, hip flexors, systems coordinator, quadriceps, tibialis Anterior, toe extension (EHL), plantarflexion Detailed sensory examination: intact Reflexes: Biceps: 2+, Patella: 2+ Mental Status Examination: awake, alert, oriented to person, oriented to place, oriented to time, follows commands appropriately, answers questions appropriately, no aphasia, no aproxia, opens eyes to voice, not reliable historian Cranial nerve examination: PERRL, EOMI, visual bedolla intact, sensory to face intact, no facial asymmetry is present, no dysarthria, hearing is intact symmetrically, soft palate elevates bilaterally upon phonation, flexes SCM and trapezius muscles symmetrically with full power, tongue protrudes midline, no atrophy or facial fasiculations present Cerebellar examination: performs finger to nose and heel to pickens symmetrically without ataxia Results - Laboratory Findings CBC and BMP: 06/03/18 04:09 06/02/18 17:49 Abnormal lab findings: Abnormal lab results RDW 14.6 % (11.5-14.5) H 06/03/18 04:09 ESR 13 mm/hr (0-10) H 06/02/18 17:49 PT 12.8 Seconds (9.4-12.1) H 06/02/18 12:11 APTT 42.9 Seconds (26.0-36.0) H 06/02/18 12:11 Total Bilirubin 1.1 mg/dL (0.3-1.0) H 06/02/18 17:49 Direct Bilirubin 0.3 mg/dL (0.0-0.2) H 06/02/18 12:11 AST 41 Units/L (13-39) H 06/02/18 17:49 ALT 64 Units/L (7-52) H 06/02/18 17:49 Alkaline Phosphatase 109 Units/L (34-104) H 06/02/18 17:49 Urine Ketones 15 mg/dL (Negative) H 06/02/18 19:15 Hepatitis A IgM Ab Reactive (Nonreactive) H 06/02/18 17:49 Consult Discharge Plan - Plan Referrals: Eleonora Garcia, ROSA [Primary Care Provider] - 06/09/18 10:00 am <Parveen Fernando - Last Filed: 06/03/18 14:47> Date of Encounter: 06/03/18 Assessment and Plan (1) Seizure disorder Current Visit: No Status: Chronic (2) Altered mental status Current Visit: Yes Status: Acute Qualifiers: Altered mental status type: delirium Qualified Code(s): R41.0 - Disorientation, unspecified (3) Altered mental status Current Visit: Yes Status: Resolved I have personally performed a [id number] assessment of the patient and have reviewed the PA/[employer] note. My impressions are as follows: Motor likely we are dealing with a breakthrough seizure activity. Particularly so since he is back to his normal baseline status with no evidence of metabolic derangement or structural abnormalities in the brain. In any regard we will check a primidone level and maintain both of his AEDs at the current dosages. We will observe for now. I anticipate that if he remains stable overnight he should be able to be discharged tomorrow morning. Qualifiers: Altered mental status type: delirium Qualified Code(s): R41.0 - Disorientation, unspecified History of Present Illness HPI: The chart was reviewed, the patient was seen and examined independently. Case was discussed with the neurology resident on service.I have personally performed a [id number] assessment of the patient and have reviewed the PA/[employer] note. My impressions are as follows: I agree with the history of present illness as documented above by the neurology resident. Mr. Pierre is well known to me as I been taking care of him for seizures over many years. He does have mild MRDD, and I suspect he may be developing dementia now as more recently appears disheveled and unkempt. He is now awake and alert and oriented and back to his normal baseline. I do not feel that the EEG is necessary, his levetiracetam level was normal. I will check his primidone level make further recommendations tomorrow. Maintain consider starting him on anticholinesterase inhibitor. All Systems: The remainder of the systems were reviewed and are negative Review of Systems: Balance of the systems review is negative. Physical Examination - Vital Signs Vital Signs: Initial Vital Signs Temp Pulse Resp BP Pulse Ox 98.2 F 63 16 108/87 97 06/02/18 12:02 06/02/18 12:02 06/02/18 12:02 06/02/18 12:06/02/18 12:02 - Exam Exam: General Examination: *GENERAL APPEARANCE OF PATIENT appears disheveled. *EYES: pupils equal, round, reactive to light and accommodation, conjun ctiva clear without masses or ulcerations, fundi normal. *CARDIOVASCULAR no peripheral edema, distal temperature normal, dorsalis pedis pulses normal. Refer to vital signs Musculoskeletal: *GAIT AND STATION normal, with normal Romberg testing, no abnormalities such as broad base gait or spasticity *ASSESSMENT OF MUSCLE STRENGTH IN THE UPPER AND LOWER EXTREMITIES deltoid, bicep, tricep, systems coordinator strength, hip flexors ,anterior tibialis, dorsoflexion of the foot normal. *MUSCLE TONE IN THE UPPER AND LOWER EXTREMITIES normal. No abnormal movements, fasciculations or atrophy identified. Neurological: *ORIENTATION to time and place *RECURRENT AND REMOTE MEMORY intact *ATTENTION AND CONCENTRATION are normal *LANGUAGE FUNCTION no significant aphasia or dysarthia was noted. *FUND OF KNOWLEDGE aware of current events, past history, vocabulary *MENTAL attention span and concentration normal. *CN II optic fundi were normal, no papilledema noted. *CN III,IV, PERRLA extraocular eye movements were full, no nystagmus and no ptosis noted. *CN V shows normal sensation and jaw opens symmetrically. *CN VII shows normal facial movement symmetrically, upper and lower bilaterally. *CN VIII shows no significant hearing loss on examination in the office. *CN IX,,X palate elevated symmetrically and normal gag reflex was noted. *CN XI normal strength in the sternocleidomastoid muscles, symmetrical shoulder shrugging. *CN XII tongue protruded in the midline, with normal strength and movement. *SENSORY EXAMINATION pinprick sensation intact, and light touch(vibration sense). *REFLEXES: deep tendon reflexes were normal and symmetrical , grade 2/4 diffusely, no pathological reflexes were noted. *CEREBELLAR TESTING normal finger to nose, heel/knee/pickens, and tandem walk. *PAIN LEVEL Results - Laboratory Findings CBC and BMP: 06/03/18 04:09 06/02/18 17:49 Abnormal lab findings: Abnormal lab results RDW 14.6 % (11.5-14.5) H 06/03/18 04:09 ESR 13 mm/hr (0-10) H 06/02/18 17:49 PT 12.8 Seconds (9.4-12.1) H 06/02/18 12:11 APTT 42.9 Seconds (26.0-36.0) H 06/02/18 12:11 Total Bilirubin 1.1 mg/dL (0.3-1.0) H 06/02/18 17:49 Direct Bilirubin 0.3 mg/dL (0.0-0.2) H 06/02/18 12:11 AST 41 Units/L (13-39) H 06/02/18 17:49 ALT 64 Units/L (7-52) H 06/02/18 17:49 Alkaline Phosphatase 109 Units/L (34-104) H 06/02/18 17:49 Urine Ketones 15 mg/dL (Negative) H 06/02/18 19:15 Hepatitis A IgM Ab Reactive (Nonreactive) H 06/02/18 17:49
--- NOTE | 2018-06-03 10:28 | Internal Med Progress Note ---
Hospitalist Progress Note - Encounter Date of Encounter: 06/03/18 Time of Encounter: 10:26 - Subjective Interval History: Pt seen and examined in the room. Mental status has improved. He is able to recall a few things but still can not remember what has happened in the last 3 days. Denies Hx of hepatits and any recent sick contact. - Exam Vitals: Temp Pulse Resp BP Pulse Ox 98.0 F 62 17 123/64 98 06/03/18 06:56 06/03/18 06:56 06/03/18 06:56 06/03/18 06:56 06/03/18 06:56 Exam: PHYSICAL EXAMINATION: GENERAL APPEARANCE: The patient is alert, oriented to person and place, in no acute distress. HEENT: Head is normocephalic. The sinuses are nontender. Pupils are equal and reactive. The nares are patent. Oropharynx clear without lesions. NECK: Supple without lymphadenopathy. HEART: Regular rate and rhythm. LUNGS: No crackles or wheezes are heard. ABDOMEN: Soft, nontender, nondistended with good bowel sounds heard. Inguinal area is normal. EXTREMITIES: Without cyanosis, clubbing or edema. NEUROLOGICAL: Gross nonfocal. SKIN: Warm and dry without any rash. - Assessment and Plan (1) Altered mental status Current Visit: Yes Status: Acute Assessment and Plan: 06/02 52-year-old male with past medical history of epilepsy, hypertension, PE, DVT, and hypertension presented with acute onset of mental status change. He was witnessed having several seizure 2 days ago, since then, his mental status deteriorated, which was manifested as memory loss and inability to perform ADL. Based on the history, patient likely had a status epilepticus 2 days ago. His seizure most likely was uncontrolled since then. he received 1000 mg Keppra and IV thiamine at the ED. He remained confused and had memory loss. He takes Mysoline and Keppra at home. Unclear the etiology of seizure, AED overdose or non-compliance. Will check Keppa level. Continue Keppra and mysoline. MRI brain to rule out acute encephalitis. Neuro consult. 06/03 MRI brain is negative for acute pathology. Serum ESR and CRP unremarkable. Normal RPR, Vit B12, TSH, ammonia, and HIV test. Hepatitis A IgM elevated, in conjunction with elevated AST/ALT, ALP and bili, i ndicating recent hepatitis A infection. will continue monitoring. Keppra level about 26, after received 1000 mg IV Keppra at ED. Neuro consulted and no further workup indicated. Continue home meds of AED, monitoring seizure activity, continue IVF for now. monitor CMP. Anticipate dc in am if continue to do well. (2) Epileptic seizure Current Visit: No Status: Acute Assessment and Plan: same as above. Neuro following. (3) HTN (hypertension) Current Visit: No Status: Acute Assessment and Plan: well controlled, continue home meds. continue monitoring. (4) Hepatitis A Current Visit: Yes Status: Acute Assessment and Plan: Likely recent Hepatitis A infection. mildly elevation of AST/ALT and ALP. Monitoring. (5) DVT (deep venous thrombosis) Current Visit: No Status: Acute Assessment and Plan: continue Pradaxa. (6) DVT prophylaxis Current Visit: No Status: Acute Assessment and Plan: Pradaxa. - Time Spent with Patient Total time spent is greater than 50% in coordination of care (as documented) at patient's floor/unit and/or counseling patient: Greater than 35 minutes Plan of Care Discussed with: patient Internal Medicine: Result - Labs CBC & Chem 7: 06/03/18 04:09 06/02/18 17:49 Labs: Short CBC 06/02/18 06/03/18 Range/Units 12:11 04:09 WBC 8.2 7.1 (4.3-11.1) K/mcL Hgb 14.8 13.6 (12.9-16.9) g/dL Hct 45.5 42.3 (37.5-50.1) % Plt Count 249 224 (140-400) K/mcL Neutrophils # 5.6 3.7 (1.6-8.9) K/mcL BMP 06/02/18 06/02/18 12:11 17:49 Sodium 140 137 Potassium 3.7 3.6 Chloride 104 104 Carbon Dioxide 26 26 BUN 14 14 Creatinine 1.16 1.14 Glucose 114 H 89 Calcium 9.3 9.4 Cardiac Enzymes 06/02/18 Range/Units 12:11 Troponin I 0.03 (< 0.04) ng/mL Liver Function 06/02/18 06/02/18 Range/Units 12:11 17:49 Total Bilirubin 1.3 H 1.1 H (0.3-1.0) mg/dL Direct Bilirubin 0.3 H (0.0-0.2) mg/dL AST 37 41 H (13-39) Units/L ALT 64 H 64 H (7-52) Units/L Alkaline Phosphatase 115 H 109 H (34-104) Units/L Albumin 4.1 4.0 (3.5-5.7) g/dL Urine 06/02/18 06/02/18 Range/Units 14:05 19:15 Urine Color Yellow Yellow (Yellow) Urine Clarity Clear Clear (Clear) Urine pH 6.0 6.0 (5.0-8.0) pH Units Ur Specific [place] 1.009 L 1.018 (1.010-1.025) Urine Protein Negative Negative (Neg-Trace) mg/dL Urine Glucose (UA) Normal Normal (Normal) mg/dL - ABG Interpretation ABG results: PT/INR, D-dimer PT 12.8 Seconds (9.4-12.1) H 06/02/18 12:11 - Impressions Impressions Chest X-Ray 06/02/18 12:09 IMPRESSION: 1. No active pulmonary disease. D/ / Tato Joseph MD / Tato Joseph MD Interpreting Provider: Tato Joseph MD Head CT 06/02/18 12:10 IMPRESSION: No acute intracranial abnormality. D/ / My Urias MD / My Urias MD Interpreting Provider: My Urias MD Brain MRI 06/02/18 17:50 IMPRESSION: No acute intracranial abnormality identified. Fluid within the left middle ear and left mastoid air cells. Correlate for otomastoiditis. D/ / Cam López MD / Cam López MD Interpreting Provider: Cam López MD Consult Discharge Plan - Plan Referrals: Eleonora Garcia, [employer] WORKER [Primary Care Provider] - 06/09/18 10:00 am (1) Altered mental status Qualifiers: Altered mental status type: delirium Qualified Code(s): R41.0 - Disorientation, unspecified (2) Epileptic seizure Qualifiers: Epilepsy type: unspecified Intractability: not intractable Status epilepticus: without status epilepticus Qualified Code(s): G40.909 - Epilepsy, unspecified, not intractable, without status epilepticus (3) HTN (hypertension) Qualifiers: Hypertension type: essential hypertension Qualified Code(s): I10 - Essential (primary) hypertension (4) Hepatitis A Qualifiers: Hepatic coma status: without hepatic coma Qualified Code(s): B15.9 - Hepatitis A without hepatic coma (5) DVT (deep venous thrombosis) Qualifiers: DVT location: lower extremity Affected thrombotic vein of extremity: femoral Chronicity: acute Laterality: right Qualified Code(s): I82.411 - Acute embolism and thrombosis of right femoral vein
[2018-06-04 05:28] LABS: Alanine Aminotransferase 57 Units/L (7-52); Albumin 3.6 g/dL (3.5-5.7); Albumin/Globulin Ratio 1.5 (1.1-2.2); Alkaline Phosphatase 103 Units/L (34-104); Aspartate Amino Transferase 31 Units/L (13-39); BUN/Creatinine Ratio 19 (6-26); Blood Urea Nitrogen 19 mg/dL (8-23); Calcium 8.7 mg/dL (8.6-10.3); Carbon Dioxide 25 mEq/L (23-29); Chloride 106 mEq/L (98-107); Globulin 2.4 g/dL (2.4-3.5); Glucose 94 mg/dL (70-105); Osmolality,Calculated 292 (280-300); Potassium 3.7 mEq/L (3.5-5.1); Sodium 140 mEq/L (136-145); eGFR For Non-African Americans > 60 (> 60)
[2018-06-04] MEDS: amLODIPine 5 MG TABLET PO SCH (08:16)
[2018-06-04] MEDS: levETIRAcetam 250 MG TABLET PO SCH ×2 (08:16→20:00)
[2018-06-04] MEDS: *HR* Dabigatran 150 MG CAPSULE PO SCH ×2 (08:16→20:00)
--- NOTE | 2018-06-04 10:13 | Internal Med Progress Note ---
Hospitalist Progress Note - Encounter Date of Encounter: 06/04/18 Time of Encounter: 10:09 - Subjective Interval History: Pt seen and examined in the room. He is alert but responded to questions slowly. When questioned about ability to take care of himself, he stated he is not sure. He has good memory about what happened yesterday. No seizure activity overnight. - Exam Vitals: Temp Pulse Resp BP Pulse Ox 98.4 F 60 16 164/81 94 06/04/18 07:06/04/18 07:06/04/18 07:06/04/18 07:06/04/18 07:17 Exam: PHYSICAL EXAMINATION: GENERAL APPEARANCE: The patient is alert, oriented to person and place, in no acute distress. HEENT: Head is normocephalic. The sinuses are nontender. Pupils are equal and reactive. The nares are patent. Oropharynx clear without lesions. NECK: Supple without lymphadenopathy. HEART: Regular rate and rhythm. LUNGS: No crackles or wheezes are heard. ABDOMEN: Soft, nontender, nondistended with good bowel sounds heard. Inguinal area is normal. EXTREMITIES: Without cyanosis, clubbing or edema. NEUROLOGICAL: Gross nonfocal. SKIN: Warm and dry without any rash. - Assessment and Plan (1) Altered mental status Current Visit: Yes Status: Acute Assessment and Plan: 06/02 52-year-old male with past medical history of epilepsy, hypertension, PE, DVT, and hypertension presented with acute onset of mental status change. He was witnessed having several seizure 2 days ago, since then, his mental status deteriorated, which was manifested as memory loss and inability to perform ADL. Based on the history, patient likely had a status epilepticus 2 days ago. His seizure most likely was uncontrolled since then. he received 1000 mg Keppra and IV thiamine at the ED. He remained confused and had memory loss. He takes Mysoline and Keppra at home. Unclear the etiology of seizure, AED overdose or non-compliance. Will check Keppa level. Continue Keppra and mysoline. MRI brain to rule out acute encephalitis. Neuro consult. 06/03 MRI brain is negative for acute pathology. Serum ESR and CRP unremarkable. Normal RPR, Vit B12, TSH, ammonia, and HIV test. Hepatitis A IgM elevated, in conjunction with elevated AST/ALT, ALP and bili, indicating recent hepatitis A infection. will continue monitoring. Keppra level about 26, after received 1000 mg IV Keppra at ED. Neuro consulted and no further workup indicated. Continue home meds of AED, monitoring seizure activity, continue IVF for now. monitor CMP. Anticipate dc in am if continue to do well. 06/04 Mental status improving. No more seizure activity. PT/OT consult for placement. (2) Epileptic seizure Current Visit: No Status: Acute Assessment and Plan: same as above. Neuro following. (3) HTN (hypertension) Current Visit: No Status: Acute Assessment and Plan: well controlled, continue home meds. continue monitoring. (4) Hepatitis A Current Visit: Yes Status: Acute Assessment and Plan: Likely recent Hepatitis A infection. mildly elevation of AST/ALT and ALP. Monitoring. (5) DVT (deep venous thrombosis) Current Visit: Yes Status: Acute Assessment and Plan: continue Pradaxa. (6) DVT prophylaxis Current Visit: No Status: Acute Assessment and Plan: Pradaxa. - Time Spent with Patient Total time spent is greater than 50% in coordination of care (as documented) at patient's floor/unit and/or counseling patient: Greater than 35 minutes Plan of Care Discussed with: patient Internal Medicine: Result - Labs CBC & Chem 7: 06/03/18 04:09 06/04/18 04:23 Labs: BMP 06/04/18 04:23 Sodium 140 Potassium 3.7 Chloride 106 Carbon Dioxide 25 BUN 19 Creatinine 1.01 Glucose 94 Calcium 8.7 Liver Function 06/04/18 Range/Units 04:23 Total Bilirubin 1.0 (0.3-1.0) mg/dL AST 31 (13-39) Units/L ALT 57 H (7-52) Units/L Alkaline Phosphatase 103 (34-104) Units/L Albumin 3.6 (3.5-5.7) g/dL - ABG Interpretation ABG results: PT/INR, D-dimer PT 12.8 Seconds (9.4-12.1) H 06/02/18 12:11 Consult Discharge Plan - Plan Referrals: Eleonora Garcia, ELECTRICAL ENGINEER [employer] [Primary Care Provider] - 06/09/18 10:00 am (1) Altered mental status Qualifiers: Altered mental status type: delirium Qualified Code(s): R41.0 - Disorientation, unspecified (2) Epileptic seizure Qualifiers: Epilepsy type: unspecified Intractability: not intractable Status epilepticus: without status epilepticus Qualified Code(s): G40.909 - Epilepsy, unspecified, not intractable, without status epilepticus (3) HTN (hypertension) Qualifiers: Hypertension type: essential hypertension Qualified Code(s): I10 - Essential (primary) hypertension (4) Hepatitis A Qualifiers: Hepatic coma status: without hepatic coma Qualified Code(s): B15.9 - Hepatitis A without hepatic coma (5) DVT (deep venous thrombosis) Qualifiers: DVT location: lower extremity Affected thrombotic vein of extremity: femoral Chronicity: acute Laterality: right Qualified Code(s): I82.411 - Acute embolism and thrombosis of right femoral vein
[2018-06-05 03:28] LABS: Alanine Aminotransferase 61 Units/L (7-52); Albumin 3.6 g/dL (3.5-5.7); Albumin/Globulin Ratio 1.4 (1.1-2.2); Alkaline Phosphatase 102 Units/L (34-104); Aspartate Amino Transferase 34 Units/L (13-39); BUN/Creatinine Ratio 19 (6-26); Bilirubin,Total 0.9 mg/dL (0.3-1.0); Blood Urea Nitrogen 19 mg/dL (8-23); Calcium 8.7 mg/dL (8.6-10.3); Carbon Dioxide 25 mEq/L (23-29); Chloride 105 mEq/L (98-107); Globulin 2.5 g/dL (2.4-3.5); Glucose 95 mg/dL (70-105); Osmolality,Calculated 288 (280-300); Potassium 3.8 mEq/L (3.5-5.1); Sodium 138 mEq/L (136-145); Total Protein 6.1 g/dL (6.4-8.9); eGFR For Non-African Americans > 60 (> 60)
[2018-06-05] MEDS: amLODIPine 5 MG TABLET PO SCH (07:35)
[2018-06-05] MEDS: *HR* Dabigatran 150 MG CAPSULE PO SCH ×2 (07:35→20:11)
[2018-06-05] MEDS: levETIRAcetam 250 MG TABLET PO SCH ×2 (07:36→20:11)
--- NOTE | 2018-06-05 09:52 | Internal Med Progress Note ---
Hospitalist Progress Note - Encounter Date of Encounter: 06/05/18 Time of Encounter: 09:50 - Subjective Interval History: Patient is seen and examined in the room, he is alert and oriented, was able to communicate. No seizure activity overnight. - Exam Vitals: Temp Pulse Resp BP Pulse Ox 97.3 F L 53 16 159/85 97 06/05/18 07:17 06/05/18 07:17 06/05/18 07:17 06/05/18 07:17 06/05/18 07:17 Exam: PHYSICAL EXAMINATION: GENERAL APPEARANCE: The patient is alert, oriented to person and place, in no acute distress. HEENT: Head is normocephalic. The sinuses are nontender. Pupils are equal and reactive. The nares are patent. Oropharynx clear without lesions. NECK: Supple without lymphadenopathy. HEART: Regular rate and rhythm. LUNGS: No crackles or wheezes are heard. ABDOMEN: Soft, nontender, nondistended with good bowel sounds heard. Inguinal area is normal. EXTREMITIES: Without cyanosis, clubbing or edema. NEUROLOGICAL: Gross nonfocal. SKIN: Warm and dry without any rash. - Assessment and Plan (1) Altered mental status Current Visit: Yes Status: Acute Assessment and Plan: 06/02 52-year-old male with past medical history of epilepsy, hypertension, PE, DVT, and hypertension presented with acute onset of mental status change. He was witnessed having several seizure 2 days ago, since then, his mental status deteriorated, which was manifested as memory loss and inability to perform ADL. Based on the history, patient likely had a status epilepticus 2 days ago. His seizure most likely was uncontrolled since then. he received 1000 mg Keppra and IV thiamine at the ED. He remained confused and had memory loss. He takes Mysoline and Keppra at home. Unclear the etiology of seizure, AED overdose or non-compliance. Will check Keppa level. Continue Keppra and mysoline. MRI brain to rule out acute encephalitis. Neuro consult. 06/03 MRI brain is negative for acute pathology. Serum ESR and CRP unremarkable. Normal RPR, Vit B12, TSH, ammonia, and HIV test. Hepatitis A IgM elevated, in conjunction with elevated AST/ALT, ALP and bili, indicating recent hepatitis A infection. will continue monitoring. Keppra level about 26, after received 1000 mg IV Keppra at ED. Neuro consulted and no further workup indicated. Continue home meds of AED, monitoring seizure activity, continue IVF for now. monitor CMP. Anticipate dc in am if continue to do well. 06/04 Mental status improving. No more seizure activity. PT/OT consult for placement. 06/05 Patient mental status back to the baseline. Pending PTOT consult for placement. No seizure activity overnight, continue current AEDs. (2) Epileptic seizure Current Visit: No Status: Acute Assessment and Plan: same as above. (3) HTN (hypertension) Current Visit: No Status: Acute Assessment and Plan: well controlled, continue home meds. continue monitoring. (4) Hepatitis A Current Visit: Yes Status: Acute Assessment and Plan: AST/ALT and ALP improving, close to baseline. (5) DVT (deep venous thrombosis) Current Visit: Yes Status: Acute Assessment and Plan: continue Pradaxa. (6) DVT prophylaxis Current Visit: No Status: Acute Assessment and Plan: Pradaxa. - Time Spent with Patient Total time spent is greater than 50% in coordination of care (as documented) at patient's floor/unit and/or counseling patient: Greater than 35 minutes Plan of Care Discussed with: patient Internal Medicine: Result - Labs CBC & Chem 7: 06/03/18 04:09 06/05/18 02:55 Labs: BMP 06/05/18 02:55 Sodium 138 Potassium 3.8 Chloride 105 Carbon Dioxide 25 BUN 19 Creatinine 0.98 Glucose 95 Calcium 8.7 Liver Function 06/05/18 Range/Units 02:55 Total Bilirubin 0.9 (0.3-1.0) mg/dL AST 34 (13-39) Units/L ALT 61 H (7-52) Units/L Alkaline Phosphatase 102 (34-104) Units/L Albumin 3.6 (3.5-5.7) g/dL - ABG Interpretation ABG results: PT/INR, D-dimer PT 12.8 Seconds (9.4-12.1) H 06/02/18 12:11 Consult Discharge Plan - Plan Referrals: Eleonora Garcia, [employer] SHEET REPAIRER [Primary Care Provider] - 06/09/18 10:00 am (1) Altered mental status Qualifiers: Altered mental status type: delirium Qualified Code(s): R41.0 - Disorientation, unspecified (2) Epileptic seizure Qualifiers: Epilepsy type: unspecified Intractability: not intractable Status epilepticus: without status epilepticus Qualified Code(s): G40.909 - Epilepsy, unspecified, not intractable, without status epilepticus (3) HTN (hypertension) Qualifiers: Hypertension type: essential hypertension Qualified Code(s): I10 - Essential (primary) hypertension (4) Hepatitis A Qualifiers: Hepatic coma status: without hepatic coma Qualified Code(s): B15.9 - Hepatitis A without hepatic coma (5) DVT (deep venous thrombosis) Qualifiers: DVT location: lower extremity Affected thrombotic vein of extremity: femoral Chronicity: acute Laterality: right Qualified Code(s): I82.411 - Acute embolism and thrombosis of right femoral vein
[2018-06-05 10:08] LABS: Phenobarbital (Reference Lab) <1.1 ug/mL (15.0-40.0)
[2018-06-06 07:32] LABS: ANA IgG by ELISA NONE DETECTED (None Detected)
--- NOTE | 2018-06-06 08:55 | Internal Med Progress Note ---
Hospitalist Progress Note - Encounter Date of Encounter: 06/06/18 Time of Encounter: 08:52 - Subjective Interval History: Patient is seen and examined. Overnight he has no seizure activity. - Exam Vitals: Temp Pulse Resp BP Pulse Ox 97.9 F 55 14 136/76 96 06/06/18 03:16 06/06/18 03:16 06/06/18 03:16 06/06/18 03:16 06/06/18 03:16 Exam: PHYSICAL EXAMINATION: GENERAL APPEARANCE: The patient is alert, oriented to person and place, in no acute distress. HEENT: Head is normocephalic. The sinuses are nontender. Pupils are equal and reactive. The nares are patent. Oropharynx clear without lesions. NECK: Supple without lymphadenopathy. HEART: Regular rate and rhythm. LUNGS: No crackles or wheezes are heard. ABDOMEN: Soft, nontender, nondistended with good bowel sounds heard. Inguinal area is normal. EXTREMITIES: Without cyanosis, clubbing or edema. NEUROLOGICAL: Gross nonfocal. SKIN: Warm and dry without any rash. - Assessment and Plan (1) Altered mental status Current Visit: Yes Status: Acute Assessment and Plan: 06/02 52-year-old male with past medical history of epilepsy, hypertension, PE, DVT, and hypertension presented with acute onset of mental status change. He was witnessed having several seizure 2 days ago, since then, his mental status deteriorated, which was manifested as memory loss and inability to perform ADL. Based on the history, patient likely had a status epilepticus 2 days ago. His seizure most likely was uncontrolled since then. he received 1000 mg Keppra and IV thiamine at the ED. He remained confused and had memory loss. He takes Mysoline and Keppra at home. Unclear the etiology of seizure, AED overdose or non-compliance. Will check Keppa level. Continue Keppra and mysoline. MRI brain to rule out acute encephalitis. Neuro consult. 06/03 MRI brain is negative for acute pathology. Serum ESR and CRP unremarkable. Normal RPR, Vit B12, TSH, ammonia, and HIV test. Hepatitis A IgM elevated, in conjunction with elevated AST/ALT, ALP and bili, indicating recent hepatitis A infection. will continue monitoring. Keppra level about 26, after received 1000 mg IV Keppra at ED. Neuro consulted and no further workup indicated. Continue home meds of AED, monitoring seizure activity, continue IVF for now. monitor CMP. Anticipate dc in am if continue to do well. 06/04 Mental status improving. No more seizure activity. PT/OT consult for placement. 06/05 Patient mental status back to the baseline. Pending PTOT consult for placement. No seizure activity overnight, continue current AEDs. 06/06 Activity overnight. PT/OT recommended home health. Anticipate discharge home with home health [facility]. (2) Epileptic seizure Current Visit: No Status: Acute Assessment and Plan: same as above. (3) HTN (hypertension) Current Visit: No Status: Acute Assessment and Plan: well controlled, continue home meds. continue monitoring. (4) Hepatitis A Current Visit: Yes Status: Acute Assessment and Plan: AST/ALT and ALP improving, close to baseline. (5) DVT (deep venous thrombosis) Current Visit: Yes Status: Acute Assessment and Plan: continue Pradaxa. (6) DVT prophylaxis Current Visit: No Status: Acute Assessment and Plan: Pradaxa. - Time Spent with Patient Total time spent is greater than 50% in coordination of care (as documented) at patient's floor/unit and/or counseling patient: Greater than 35 minutes Plan of Care Discussed with: patient Internal Medicine: Result - Labs CBC & Chem 7: 06/03/18 04:09 06/05/18 02:55 - ABG Interpretation ABG results: PT/INR, D-dimer PT 12.8 Seconds (9.4-12.1) H 06/02/18 12:11 Consult Discharge Plan - Plan Referrals: Eleonora Garcia, LU[employer] WR[employer]PER MAKER [Primary Care Provider] - 06/09/18 10:00 am ____ (1) Altered mental status Qualifiers: Altered mental status type: delirium Qualified Code(s): R41.0 - Disorientation, unspecified (2) Epileptic seizure Qualifiers: Epilepsy type: unspecified Intractability: not intractable Status epilepticus: without status epilepticus Qualified Code(s): G40.909 - Epilepsy, unspecified, not intractable, without status epilepticus (3) HTN (hypertension) Qualifiers: Hypertension type: essential hypertension Qualified Code(s): I10 - Essential (primary) hypertension (4) Hepatitis A Qualifiers: Hepatic coma status: without hepatic coma Qualified Code(s): B15.9 - Hepatitis A without hepatic coma (5) DVT (deep venous thrombosis) Qualifiers: DVT location: lower extremity Affected thrombotic vein of extremity: femoral Chronicity: acute Laterality: right Qualified Code(s): I82.411 - Acute embolism and thrombosis of right femoral vein
[2018-06-06] MEDS: levETIRAcetam 250 MG TABLET PO SCH ×2 (08:58→20:42)
[2018-06-06] MEDS: amLODIPine 5 MG TABLET PO SCH (08:58)
[2018-06-06] MEDS: *HR* Dabigatran 150 MG CAPSULE PO SCH ×2 (08:58→20:42)
[2018-06-07 04:11] LABS: Alanine Aminotransferase 81 Units/L (7-52); Albumin 3.7 g/dL (3.5-5.7); Albumin/Globulin Ratio 1.4 (1.1-2.2); Alkaline Phosphatase 111 Units/L (34-104); Aspartate Amino Transferase 42 Units/L (13-39); BUN/Creatinine Ratio 23 (6-26); Bilirubin,Total 0.8 mg/dL (0.3-1.0); Blood Urea Nitrogen 18 mg/dL (8-23); Carbon Dioxide 28 mEq/L (23-29); Chloride 103 mEq/L (98-107); Globulin 2.6 g/dL (2.4-3.5); Glucose 89 mg/dL (70-105); Osmolality,Calculated 281 (280-300); Potassium 3.8 mEq/L (3.5-5.1); Sodium 135 mEq/L (136-145); Total Protein 6.3 g/dL (6.4-8.9); eGFR For Non-African Americans > 60 (> 60)
[2018-06-07] MEDS: *HR* Dabigatran 150 MG CAPSULE PO SCH (08:29)
[2018-06-07] MEDS: levETIRAcetam 250 MG TABLET PO SCH (08:29)
[2018-06-07] MEDS: amLODIPine 5 MG TABLET PO SCH (08:29)
[2018-06-07 10:52] VITALS: BP 138/70
--- NOTE | 2018-06-07 12:55 | Physician Discharge Referral ---
Home Health/Hosp Referral Info Transfer to: Home Health Provider in Charge Post Discharge: PCP - Diagnosis (1) Altered mental status Priority: Primary Status: Acute (2) Epileptic seizure Priority: Primary Status: Acute (3) HTN (hypertension) Priority: Secondary Status: Acute (4) Hepatitis A Priority: Primary Status: Acute (5) DVT (deep venous thrombosis) Priority: Secondary Status: Acute (6) DVT prophylaxis Priority: Primary Status: Acute - Respiratory Orders Smoking Cessation: Smoking cessation has been advised. For more information, call the [place] Tobacco Quit Line at 8-252-FIJU-NOW. - Services Needed Following services are medically necessary services: Nursing, Home Health Aide, Physical Therapy, Occupational Therapy - Transfer Medications Home Medications: Atorvastatin [Lipitor] 40 mg PO HS 07/28/16 [History] amLODIPine [Norvasc] 5 mg PO DAILY #30 tablet 07/30/16 [Rx] Dabigatran [Pradaxa] 150 mg PO BID #60 capsule 06/01/17 [Rx] LevETIRAcetam [Keppra] 1,000 mg PO BID 04/27/18 [History] Primidone [Mysoline] 250 mg PO DAILY 06/02/18 [History] Allergies/Adverse Reactions: Allergy/AdvReac Type Severity Reaction Status Date / Time No Known Allergies Allergy Verified 02/25/18 11:29 Certification: Further, I certify that my clinical findings support that this patient is homebound (i.e. absences from home require considerable and taxing effort and are for medical reasons or confucianist services or infrequently or short duration when for other reasons) because: Homebound Reason: Patient requires assistance of a person or device to safely leave home Attestation: My signature below is to certify that this patient is under my care and that I, or nurse practitioner, or a physician's office clerk assistant working with me, has a [id number] encounter with this patient.
--- NOTE | 2018-06-07 12:58 | Discharge Summary ---
- NOTES TO OUTPATIENT PROVIDER Notes to Outpatient Provider: f/u with PCP and neurology within a week. Orders not resulted at time of discharge: Pending orders 06/02/18 19:54 Urinalysis Reflex Cult & Micro [URIN] Stat Date of Encounter: 06/07/18 Time of Encounter: 12:56 - Discharge Diagnosis (1) Altered mental status Priority: Primary Status: Acute Qualifiers: Altered mental status type: delirium Qualified Code(s): R41.0 - Disorientation, unspecified (2) Epileptic seizure Priority: Primary Status: Acute Qualifiers: Epilepsy type: unspecified Intractability: not intractable Status epilepticus: without status epilepticus Qualified Code(s): G40.909 - Epilepsy, unspecified, not intractable, without status epilepticus (3) HTN (hypertension) Priority: Secondary Status: Chronic Qualifiers: Hypertension type: essential hypertension Qualified Code(s): I10 - Essential (primary) hypertension (4) Hepatitis A Priority: Primary Status: Acute Qualifiers: Hepatic coma status: without hepatic coma Qualified Code(s): B15.9 - Hepatitis A without hepatic coma (5) DVT (deep venous thrombosis) Priority: Secondary Status: Chronic Qualifiers: DVT location: lower extremity Affected thrombotic vein of extremity: femoral Chronicity: acute Laterality: right Qualified Code(s): I82.411 - Acute embolism and thrombosis of right femoral vein (6) DVT prophylaxis Priority: Primary Status: Acute Hospital course: Mr. Pierre is a 62 year old male with has medical history of epilepsy, PE, hypertension, and DVT who was brought by EMS because of mental status change. Patient was altered and cannot provide a reliable history. He stated that he cannot remember what happened to him in the past 3 days. He remembers that he ate a cheeseburger sent which yesterday evening which was brought by his friend, however, he cannot recall the name of his friends. When questioned about a what happened today to him, he stated he cannot remember anything. Patient currently living at home with his girlfriend, he provided me with his girlfriend phone number. After I called her, she confirmed that patient had several seizure the day before yesterday. He became progressively more confused yesterday and today, he cannot take tell himself, therefore the EMS was called by the girlfriend, the patient was brought here. Patient stated that he has been compliant with seizure medication. He has no recent travel or sick contact. He denies any fever, chills, or night sweats. He has no headache, numbness, or weakness. Upon arrival, patient received 1 dose of IV thiamine and 1000 mg Keppra. Labs were unremarkable besides slightly elevated total bilirubin, ALT, and ALP. Urine was normal and a drug screen was negative. Chest x-ray and a CT head both were unremarkable. Patient was admitted for further evaluation. While in the hospital, patient AED was continued, no further seizure activity was witnessed. Labs showed a positive hepatitis A IgM. With supportive care and IV fluid, the total bilirubin, AST, ALT, and ALP were all trending down and a closed to close to normal limits before discharge. PT/OT evaluated the patient, home health care was recommended. She was discharged home today, he was instructed to continue his home medications especially AED including Keppra and Mysoline. He was also instructed to follow-up with PCP and neurology with a week. Discharge discussed with: patient Time spent discussing smoking cessation with patient: more than 10 minutes - Time Spent with Patient Total time spent providing and/or coordinating discharge services: Time spent: Greater than 30 minutes - Discharge Medications Prescriptions: Continue Atorvastatin [Lipitor] 40 mg PO HS amLODIPine [Norvasc] 5 mg PO DAILY #30 tablet Dabigatran [Pradaxa] 150 mg PO BID #60 capsule LevETIRAcetam [Keppra] 1,000 mg PO BID Primidone [Mysoline] 250 mg PO DAILY Home Medications: Atorvastatin [Lipitor] 40 mg PO HS 07/28/16 [History] amLODIPine [Norvasc] 5 mg PO DAILY #30 tablet 07/30/16 [Rx] Dabigatran [Pradaxa] 150 mg PO BID #60 capsule 06/01/17 [Rx] LevETIRAcetam [Keppra] 1,000 mg PO BID 04/27/18 [History] Primidone [Mysoline] 250 mg PO DAILY 06/02/18 [History] Allergies/Adverse Reactions: Allergy/AdvReac Type Severity Reaction Status Date / Time No Known Allergies Allergy Verified 02/25/18 11:29 Date of admission: 06/02/18 19:06 Primary care physician: Eleonora Garcia CNP Consults: 04/17/19 17:50 Consult to Neurology [CONS] Routine Consulting Provider: Neu[facility] Reason for Consult: AMS Call Completed: Yes 06/04/18 08:59 Consult to Physical Therapy [CONS] Routine Comment: Evaluate, develop and implement POC Reason for Consult: dc planning Does patient have active BEDREST order?: No Is patient medically & hemodynamically stable?: Yes Patient assessed for mobility or mobilized this visit?: Yes Anticipated date of discharge: 06/07/18 - Constitutional Vitals: Temp Pulse Resp BP Pulse Ox 97.6 F 63 17 138/70 98 06/07/18 10:47 06/07/18 10:47 06/07/18 10:47 06/07/18 10:47 06/07/18 10:47 General appearance: Present: A&O X 1 Exam: PHYSICAL EXAMINATION: GENERAL APPEARANCE: The patient is alert, oriented to person and place, in no acute distress. HEENT: Head is normocephalic. The sinuses are nontender. Pupils are equal and reactive. The nares are patent. Oropharynx clear without lesions. NECK: Supple without lymphadenopathy. HEART: Regular rate and rhythm. LUNGS: No crackles or wheezes are heard. ABDOMEN: Soft, nontender, nondistended with good bowel sounds heard. Inguinal area is normal. EXTREMITIES: Without cyanosis, clubbing or edema. NEUROLOGICAL: Gross nonfocal. SKIN: Warm and dry without any rash. - Patient Status Disposition: Home Health Service Condition: Fair Functional capacity at discharge: independent ambulation Overall status at discharge: patient is progressing back to baseline - Discharge Instructions Follow Up With: Eleonora Garcia CNP [Primary Care Provider] - 06/09/18 10:00 am - Diet and Activity Activity: increase activity as tolerated Diet: advance to your usual diet
--- NOTE | 2018-06-09 09:03 | Physician Discharge Referral ---
Home Health/Hosp Referral Info Transfer to: Home Health Provider in Charge Post Discharge: PCP - Diagnosis (1) Altered mental status Priority: Primary Status: Acute (2) Epileptic seizure Priority: Secondary Status: Acute (3) DVT (deep venous thrombosis) Priority: Secondary Status: Chronic - Respiratory Orders Smoking Cessation: Smoking cessation has been advised. For more information, call the [place] Tobacco Quit Line at 8-974-YHFI-NOW. - Transfer Medications Home Medications: Atorvastatin [Lipitor] 40 mg PO HS 07/28/16 [History] amLODIPine [Norvasc] 5 mg PO DAILY #30 tablet 07/30/16 [Rx] Dabigatran [Pradaxa] 150 mg PO BID #60 capsule 06/01/17 [Rx] LevETIRAcetam [Keppra] 1,000 mg PO BID 04/27/18 [History] Primidone [Mysoline] 250 mg PO DAILY 06/02/18 [History] Allergies/Adverse Reactions: Allergy/AdvReac Type Severity Reaction Status Date / Time No Known Allergies Allergy Verified 02/25/18 11:29 Certification: Further, I certify that my clinical findings support that this patient is homebound (i.e. absences from home require considerable and taxing effort and are for medical reasons or spiritism services or infrequently or short duration when for other reasons) because: Homebound Reason: Patient requires assistance of a person or device to safely leave home Attestation: My signature below is to certify that this patient is under my care and that I, or nurse practitioner, or a physician's assistant research scientist working with me, has a [id number] encounter with this patient.
--- NOTE | 2018-06-09 09:11 | Physician Discharge Referral ---
Home Health/Hosp Referral Info Transfer to: Home Health Provider in Charge Post Discharge: PCP - Diagnosis (1) Altered mental status Status: Acute (2) Epileptic seizure Status: Acute (3) DVT (deep venous thrombosis) Status: Chronic - Respiratory Orders Smoking Cessation: Smoking cessation has been advised. For more information, call the [place] Tobacco Quit Line at 4-748-FMUH-NOW. - Services Needed Following services are medically necessary services: Nursing, Home Health Aide, Physical Therapy, Occupational Therapy - Transfer Medications Home Medications: Atorvastatin [Lipitor] 40 mg PO HS 07/28/16 [History] amLODIPine [Norvasc] 5 mg PO DAILY #30 tablet 07/30/16 [Rx] Dabigatran [Pradaxa] 150 mg PO BID #60 capsule 06/01/17 [Rx] LevETIRAcetam [Keppra] 1,000 mg PO BID 04/27/18 [History] Primidone [Mysoline] 250 mg PO DAILY 06/02/18 [History] Allergies/Adverse Reactions: Allergy/AdvReac Type Severity Reaction Status Date / Time No Known Allergies Allergy Verified 02/25/18 11:29 Certification: Further, I certify that my clinical findings support that this patient is homebound (i.e. absences from home require considerable and taxing effort and are for medical reasons or jainism services or infrequently or short duration when for other reasons) because: Homebound Reason: Patient requires assistance of a person or device to safely leave home Attestation: My signature below is to certify that this patient is under my care and that I, or nurse practitioner, or a physician's assistant research scientist working with me, has a [id number] encounter with this patient.
--- NOTE | 2018-06-10 19:03 | Electrocardiograph Report ---
[place] [id number] Test Date: 2018-06-02 Pat Name: Edward Pierre Department: EXAM23 Room: 3B11 Gender: M Scaler: : [id number] Requested By: Mahesh Gray Order Number: [id number] Reading MD: Allen Harman Measurements Intervals Rogers Rate: 64 P: 31 UT: 190 QRS: -7 QRSD: 118 T: 37 QT: 410 QTc: 423 Interpretive Statements Sinus rhythm Nonspecific intraventricular conduction delay Nonspecific ST and T-wave changes Electronically Signed On 06-10-2018 19:01:50 EDT by Allen Harman
== END 2018-06-07 17:40 | disposition home health service (06) ==
LOC: EMEROOARM 12:00 → 3BNU 12:00
PROVIDERS: ADMIT Internal Medicine; ATTEND Student in an Organized Health Care Education/Training Program

== ENCOUNTER 2021-03-10 14:30 | Inpatient (IN) ==
[2021-03-10] MEDS ORDERED: Morphine Sulfate 2 MG/ML SYRINGE IVP ONE (16:02)
[2021-03-10] MEDS ORDERED: Isovue-370 500 ML BOTTLE IVP ONE (16:04)
[2021-03-10 16:26] LABS: Basophils % 0.3 %; Eosinophils # 0.1 K/mcL (0.0-0.6); Eosinophils % 0.6 %; Hematocrit 43.8 % (37.5-50.1); Immature Granulocytes % 0.7 % (0-4); Lymphocytes # 0.7 K/mcL (0.6-4.6); Lymphocytes % 4.9 %; Mean Corpuscular Hemoglobin 28.6 pg (28.0-33.3); Mean Corpuscular Volume 89.6 fL (83.0-100.0); Mean Platelet Volume 11.9 fL (9.4-12.4); Monocytes % 7.4 %; Neutrophils # 11.7 K/mcL (1.6-8.9); Platelet Count 307 K/mcL (140-400); Red Blood Count 4.89 M/mcL (4.19-5.50); Red Cell Distribution Width 13.1 % (11.5-14.5); Segmented Neutrophils % 86.1 %; White Blood Count 13.5 K/mcL (4.3-11.1)
[2021-03-10 16:38] LABS: INR 1.2; Prothrombin Time 13.2 Seconds (9.4-12.1)
[2021-03-10 16:39] LABS: Albumin 3.8 g/dL (3.5-5.7); Bilirubin,Direct 0.3 mg/dL (0.0-0.2); Bilirubin,Indirect 0.6 mg/dL (0.0-1.0); Bilirubin,Total 0.9 mg/dL (0.3-1.0); Calcium 9.1 mg/dL (8.6-10.3); Globulin 3.7 g/dL (2.4-3.5); Potassium 3.9 mEq/L (3.5-5.1); Total Protein 7.5 g/dL (6.4-8.9)
[2021-03-10 16:41] LABS: Activated Partial Thrombo Time 42.1 Seconds (26.0-36.0); Troponin I 0.04 ng/mL (< 0.04)
[2021-03-10 17:10] LABS: Bilirubin,Urine Negative (Negative); Blood,Urine Moderate (Negative); Clarity,Urine Clear (Clear); Color,Urine Colorless (Yellow); Glucose,Urine (UA) Normal (Normal); Ketones,Urine Negative (Negative); Leukocyte Esterase,Urine Moderate (Negative); Nitrite,Urine Negative (Negative); Protein,Urine Trace mg/dL (Neg-Trace); RBC,Urine 30-50 per hpf (0-3); Urobilinogen,Urine Normal (Normal); WBC,Urine 15-30 per hpf (0-3)
[2021-03-10 17:11] LABS: Bacteria,Urine Few per hpf (None-Few); Mucus,Urine Few per lpf (None-Few); Squamous Epithelial Cell,Urine Few per hpf (None-Few)
[2021-03-10] MEDS ORDERED: cefTRIAXone 1,000 MG in Water for inj. (sterile) 10 ML IVP ONE (17:24)
[2021-03-10] MEDS ORDERED: Naloxone 0.4 MG/ML INJ IVP PRN (17:50)
[2021-03-10] MEDS: 0.9 % Sodium Chloride 1,000 ML IVC SCH (18:38)
[2021-03-10 21:02] LABS: Influenza A PCR Negative (Negative); Influenza B PCR Negative (Negative); Resp. Syncytial Virus PCR Negative (Negative)
[2021-03-10 21:05] LABS: SARS-CoV-2 by PCR (In House) Positive (Negative)
[2021-03-11] MEDS ORDERED: Acetaminophen IV 1,000 MG/100 ML BAG IVPB ONE (00:47)
[2021-03-11] MEDS: Doxycycline 100 MG in 0.9 % Sodium Chloride Mini Bag 100 ML IVPB SCH ×3 (02:59→20:44)
[2021-03-11] MEDS: 0.9 % Sodium Chloride 1,000 ML IVC SCH (03:00)
[2021-03-11] MEDS: Zonisamide 100 MG CAPSULE PO SCH ×2 (07:55→20:44)
[2021-03-11 09:21] LABS: Basophils % 0.3 %; Eosinophils % 0.1 %; Hematocrit 42.3 % (37.5-50.1); Hemoglobin 13.4 g/dL (12.9-16.9); Immature Granulocytes % 0.4 % (0-4); Lymphocytes # 0.6 K/mcL (0.6-4.6); Lymphocytes % 4.6 %; Mean Corpuscular HGB Conc 31.7 g/dL (31.6-35.5); Mean Corpuscular Hemoglobin 28.2 pg (28.0-33.3); Mean Corpuscular Volume 88.9 fL (83.0-100.0); Mean Platelet Volume 11.1 fL (9.4-12.4); Monocytes # 1.3 K/mcL (0.0-1.3); Monocytes % 9.7 %; Neutrophils # 11.6 K/mcL (1.6-8.9); Platelet Count 263 K/mcL (140-400); Red Blood Count 4.76 M/mcL (4.19-5.50); Red Cell Distribution Width 13.2 % (11.5-14.5); Segmented Neutrophils % 84.9 %; White Blood Count 13.6 K/mcL (4.3-11.1)
[2021-03-11 09:35] LABS: Calcium 8.1 mg/dL (8.6-10.3); Potassium 3.4 mEq/L (3.5-5.1)
[2021-03-11] MEDS ORDERED: 0.9 % Sodium Chloride 1,000 ML IVC SCH (11:00)
[2021-03-11] MEDS: *HR* Enoxaparin 40 MG/0.4 ML SYRINGE SQ SCH ×2 (11:43→20:45)
[2021-03-12 06:03] LABS: Basophils # 0.1 K/mcL (0.0-0.2); Basophils % 0.5 %; Eosinophils # 0.2 K/mcL (0.0-0.6); Eosinophils % 1.6 %; Hematocrit 39.1 % (37.5-50.1); Hemoglobin 12.5 g/dL (12.9-16.9); Immature Granulocytes % 0.5 % (0-4); Lymphocytes # 1.2 K/mcL (0.6-4.6); Lymphocytes % 11.3 %; Mean Corpuscular Hemoglobin 28.4 pg (28.0-33.3); Mean Corpuscular Volume 88.9 fL (83.0-100.0); Monocytes # 1.4 K/mcL (0.0-1.3); Monocytes % 12.3 %; Neutrophils # 8.1 K/mcL (1.6-8.9); Platelet Count 248 K/mcL (140-400); Red Cell Distribution Width 13.1 % (11.5-14.5); Segmented Neutrophils % 73.8 %
[2021-03-12 06:21] LABS: BUN/Creatinine Ratio 18 (6-26); Blood Urea Nitrogen 24 mg/dL (8-23); Carbon Dioxide 25 mEq/L (23-29); Chloride 102 mEq/L (98-107); Glucose 93 mg/dL (70-105); Osmolality,Calculated 282 (280-300); Potassium 3.7 mEq/L (3.5-5.1); Sodium 134 mEq/L (136-145); eGFR For African Americans > 60 (> 60); eGFR For Non-African Americans 52 (> 60)
[2021-03-12] MEDS: Doxycycline 100 MG in 0.9 % Sodium Chloride Mini Bag 100 ML IVPB SCH ×2 (08:11→19:31)
[2021-03-12] MEDS: *HR* Enoxaparin 40 MG/0.4 ML SYRINGE SQ SCH ×2 (08:12→19:32)
[2021-03-12] MEDS: Zonisamide 100 MG CAPSULE PO SCH ×2 (08:12→19:32)
[2021-03-12] MEDS ORDERED: 0.9 % Sodium Chloride 1,000 ML IVC SCH (11:45)
[2021-03-13 03:32] LABS: Basophils % 0.5 %; Eosinophils # 0.3 K/mcL (0.0-0.6); Eosinophils % 4.1 %; Hematocrit 39.8 % (37.5-50.1); Hemoglobin 12.4 g/dL (12.9-16.9); Immature Granulocytes % 0.4 % (0-4); Lymphocytes # 1.3 K/mcL (0.6-4.6); Lymphocytes % 16.9 %; Mean Corpuscular HGB Conc 31.2 g/dL (31.6-35.5); Mean Corpuscular Hemoglobin 28.2 pg (28.0-33.3); Mean Corpuscular Volume 90.5 fL (83.0-100.0); Mean Platelet Volume 11.7 fL (9.4-12.4); Monocytes % 12.6 %; Platelet Count 236 K/mcL (140-400); Red Cell Distribution Width 13.1 % (11.5-14.5); Segmented Neutrophils % 65.5 %; White Blood Count 7.6 K/mcL (4.3-11.1)
[2021-03-13 03:53] LABS: BUN/Creatinine Ratio 18 (6-26); Blood Urea Nitrogen 23 mg/dL (8-23); Carbon Dioxide 23 mEq/L (23-29); Chloride 106 mEq/L (98-107); Glucose 87 mg/dL (70-105); Osmolality,Calculated 279 (280-300); Potassium 3.6 mEq/L (3.5-5.1); Sodium 133 mEq/L (136-145); eGFR For African Americans > 60 (> 60); eGFR For Non-African Americans 58 (> 60)
[2021-03-13] MEDS: Zonisamide 100 MG CAPSULE PO SCH (08:38)
[2021-03-13] MEDS: *HR* Enoxaparin 40 MG/0.4 ML SYRINGE SQ SCH (08:38)
[2021-03-13] MEDS: Doxycycline 100 MG in 0.9 % Sodium Chloride Mini Bag 100 ML IVPB SCH (08:39)
[2021-03-13 11:53] VITALS: BP 114/69; PULSE 57; TEMP 97.5; O2SAT 98
== END 2021-03-13 19:31 | disposition home or self-care (01) | DRG 720 ==
LOC: 3ANU 14:30 → EMEROOARM 14:30 → 3ANU 19:32
PROVIDERS: ADMIT Pharmacist; ATTEND Pharmacist

== ENCOUNTER 2021-03-27 19:51 | Observation (INO) ==
[2021-03-27] MEDS ORDERED: Ketorolac 30 MG/ML VIAL IVP ONE (21:23)
[2021-03-27] MEDS ORDERED: Ondansetron 4 MG/2 ML VIAL IVP ONE (21:23)
[2021-03-27 21:46] LABS: Basophils # 0.1 K/mcL (0.0-0.2); Basophils % 0.5 %; Eosinophils # 0.2 K/mcL (0.0-0.6); Eosinophils % 1.3 %; Hematocrit 44.9 % (37.5-50.1); Hemoglobin 14.4 g/dL (12.9-16.9); Immature Granulocytes % 0.5 % (0-4); Lymphocytes # 0.7 K/mcL (0.6-4.6); Lymphocytes % 4.8 %; Mean Corpuscular HGB Conc 32.1 g/dL (31.6-35.5); Mean Corpuscular Hemoglobin 28.7 pg (28.0-33.3); Mean Corpuscular Volume 89.4 fL (83.0-100.0); Monocytes % 6.7 %; Neutrophils # 12.8 K/mcL (1.6-8.9); Platelet Count 332 K/mcL (140-400); Red Blood Count 5.02 M/mcL (4.19-5.50); Red Cell Distribution Width 13.4 % (11.5-14.5); Segmented Neutrophils % 86.2 %; White Blood Count 14.9 K/mcL (4.3-11.1)
[2021-03-27 21:57] LABS: Alanine Aminotransferase 75 Units/L (7-52); Albumin/Globulin Ratio 1.2 (1.1-2.2); Alkaline Phosphatase 93 Units/L (34-104); Amylase 38 Units/L (29-103); Aspartate Amino Transferase 44 Units/L (13-39); BUN/Creatinine Ratio 20 (6-26); Bilirubin,Indirect 0.6 mg/dL (0.0-1.0); Bilirubin,Total 0.6 mg/dL (0.3-1.0); Blood Urea Nitrogen 26 mg/dL (8-23); Calcium 9.6 mg/dL (8.6-10.3); Carbon Dioxide 24 mEq/L (23-29); Chloride 103 mEq/L (98-107); Globulin 3.3 g/dL (2.4-3.5); Glucose 111 mg/dL (70-105); Lipase 13 Units/L (11-82); Osmolality,Calculated 283 (280-300); Potassium 4.3 mEq/L (3.5-5.1); Sodium 134 mEq/L (136-145); Total Protein 7.3 g/dL (6.4-8.9); eGFR For African Americans > 60 (> 60); eGFR For Non-African Americans 54 (> 60)
[2021-03-27 22:20] LABS: Bilirubin,Urine Negative (Negative); Blood,Urine Trace (Negative); Clarity,Urine Clear (Clear); Color,Urine Light-Yellow (Yellow); Glucose,Urine (UA) Normal (Normal); Ketones,Urine Negative (Negative); Leukocyte Esterase,Urine Large (Negative); Mucus,Urine Few per lpf (None-Few); Nitrite,Urine Negative (Negative); PH,Urine 5.5 pH Units (5.0-8.0); Protein,Urine Trace mg/dL (Neg-Trace); Specific Gravity,Urine 1.028 (1.010-1.025); Urobilinogen,Urine Normal (Normal); WBC,Urine TNTC per hpf (0-3)
[2021-03-28] MEDS ORDERED: Naloxone 0.4 MG/ML INJ IVP PRN ×2 (00:47→09:18)
[2021-03-28] MEDS ORDERED: Ondansetron 4 MG/2 ML VIAL IVP PRN ×2 (00:47→09:18)
[2021-03-28] MEDS ORDERED: Acetaminophen 325 MG TABLET PO PRN ×2 (00:47→09:18)
[2021-03-28] MEDS ORDERED: Ipratropium/Albuterol Neb 3 ML IH PRN ×2 (00:49→09:18)
[2021-03-28] MEDS ORDERED: 0.9 % Sodium Chloride 1,000 ML IVC SCH (01:00)
[2021-03-28] MEDS ORDERED: cefTRIAXone 1,000 MG in 0.9 % Sodium Chloride Mini Bag 100 ML IVPB SCH (01:00)
[2021-03-28 01:41] LABS: Influenza A PCR Negative (Negative); Influenza B PCR Negative (Negative); Resp. Syncytial Virus PCR Negative (Negative)
[2021-03-28 01:48] LABS: SARS-CoV-2 by PCR (In House) Positive (Negative)
[2021-03-28] MEDS ORDERED: Morphine Sulfate 2 MG/ML SYRINGE IVP PRN ×2 (02:01→09:18)
[2021-03-28] MEDS ORDERED: *HR* OxyCODONE Immed Rel 5 MG TABLET PO PRN ×2 (02:02→09:18)
[2021-03-28 02:58] LABS: Basophils # 0.1 K/mcL (0.0-0.2); Basophils % 0.5 %; Eosinophils # 0.2 K/mcL (0.0-0.6); Eosinophils % 1.2 %; Hematocrit 41.2 % (37.5-50.1); Hemoglobin 12.9 g/dL (12.9-16.9); Immature Granulocytes % 0.4 % (0-4); Lymphocytes # 0.7 K/mcL (0.6-4.6); Mean Corpuscular HGB Conc 31.3 g/dL (31.6-35.5); Mean Corpuscular Hemoglobin 28.1 pg (28.0-33.3); Mean Corpuscular Volume 89.8 fL (83.0-100.0); Mean Platelet Volume 11.2 fL (9.4-12.4); Monocytes # 1.3 K/mcL (0.0-1.3); Monocytes % 7.3 %; Neutrophils # 15.2 K/mcL (1.6-8.9); Platelet Count 299 K/mcL (140-400); Red Blood Count 4.59 M/mcL (4.19-5.50); Red Cell Distribution Width 13.4 % (11.5-14.5); Segmented Neutrophils % 86.6 %; White Blood Count 17.6 K/mcL (4.3-11.1)
[2021-03-28 03:23] LABS: Calcium 9.1 mg/dL (8.6-10.3); Magnesium 1.6 mg/dL (1.6-2.6); Phosphorous 2.7 mg/dL (2.7-4.5); Potassium 4.1 mEq/L (3.5-5.1)
[2021-03-28 03:58] LABS: Thyroid Stimulating Hormone 1.107 mcIU/mL (0.340-5.600)
[2021-03-28] MEDS ORDERED: *HR* Midazolam HCl 2 MG/2 ML VIAL ONE (07:13)
[2021-03-28] MEDS ORDERED: *HR* Propofol 200 MG/20 ML VIAL IVP ONE (07:13)
[2021-03-28] MEDS ORDERED: *HR* FentaNYL (PF) 100 MCG/2 ML VIAL ONE (07:13)
[2021-03-28] MEDS ORDERED: *HR* Rocuronium Bromide 50 MG/5 ML VIAL ONE (07:14)
[2021-03-28] MEDS ORDERED: *HR* Succinylcholine 200 MG/10 ML VIAL IVP ONE (07:14)
[2021-03-28] MEDS ORDERED: Lidocaine -MPF 2% 5 ML VIAL ONE (07:14)
[2021-03-28] MEDS ORDERED: Ondansetron 4 MG/2 ML VIAL ONE (07:14)
[2021-03-28] MEDS ORDERED: Lidocaine HCL 4 ML Topical Solution (Laryng-O-Jet Kit Sterile Pak) TP ONE (07:14)
[2021-03-28] MEDS ORDERED: Isovue-300 50ML VIAL ONE (07:15)
[2021-03-28] MEDS: 0.9 % Sodium Chloride 1,000 ML IVC SCH ×2 (09:28→19:18)
[2021-03-29] MEDS ORDERED: cefTRIAXone 1,000 MG in 0.9 % Sodium Chloride Mini Bag 100 ML IVPB SCH (01:00)
[2021-03-29 02:24] LABS: Basophils % 0.2 %; Eosinophils # 0.2 K/mcL (0.0-0.6); Eosinophils % 1.2 %; Hematocrit 37.4 % (37.5-50.1); Hemoglobin 11.8 g/dL (12.9-16.9); Immature Granulocytes % 0.5 % (0-4); Lymphocytes # 1.1 K/mcL (0.6-4.6); Lymphocytes % 8.8 %; Mean Corpuscular HGB Conc 31.6 g/dL (31.6-35.5); Mean Corpuscular Hemoglobin 28.9 pg (28.0-33.3); Mean Corpuscular Volume 91.4 fL (83.0-100.0); Mean Platelet Volume 11.4 fL (9.4-12.4); Monocytes % 8.1 %; Neutrophils # 10.3 K/mcL (1.6-8.9); Platelet Count 267 K/mcL (140-400); Red Blood Count 4.09 M/mcL (4.19-5.50); Red Cell Distribution Width 13.9 % (11.5-14.5); Segmented Neutrophils % 81.2 %; White Blood Count 12.6 K/mcL (4.3-11.1)
[2021-03-29 02:43] LABS: BUN/Creatinine Ratio 20 (6-26); Blood Urea Nitrogen 24 mg/dL (8-23); Calcium 8.4 mg/dL (8.6-10.3); Carbon Dioxide 23 mEq/L (23-29); Chloride 107 mEq/L (98-107); Glucose 107 mg/dL (70-105); Osmolality,Calculated 287 (280-300); Potassium 3.7 mEq/L (3.5-5.1); Sodium 136 mEq/L (136-145); eGFR For African Americans > 60 (> 60); eGFR For Non-African Americans > 60 (> 60)
[2021-03-29] MEDS ORDERED: *HR* Enoxaparin 40 MG/0.4 ML SYRINGE SQ SCH (06:00)
[2021-03-29 06:55] VITALS: BP 140/66; PULSE 64; TEMP 98.2; O2SAT 96
== END 2021-03-29 12:54 | disposition home or self-care (01) ==
LOC: 3BNU 19:51 → EMEROOARM 19:51 → SUATTDRO 03-28 00:38 → 3BNU 03-28 01:21
PROVIDERS: ADMIT Student in an Organized Health Care Education/Training Program; ATTEND Family Medicine

== ENCOUNTER 2021-04-11 17:11 | Inpatient (IN) ==
[2021-04-11 20:06] LABS: Basophils # 0.1 K/mcL (0.0-0.2); Basophils % 0.3 %; Eosinophils # 0.2 K/mcL (0.0-0.6); Eosinophils % 0.8 %; Hematocrit 42.4 % (37.5-50.1); Hemoglobin 13.5 g/dL (12.9-16.9); Immature Granulocytes % 0.4 % (0-4); Lymphocytes # 1.1 K/mcL (0.6-4.6); Lymphocytes % 6.2 %; Mean Corpuscular HGB Conc 31.8 g/dL (31.6-35.5); Mean Corpuscular Hemoglobin 28.5 pg (28.0-33.3); Mean Corpuscular Volume 89.5 fL (83.0-100.0); Mean Platelet Volume 11.2 fL (9.4-12.4); Monocytes # 0.8 K/mcL (0.0-1.3); Monocytes % 4.7 %; Neutrophils # 15.6 K/mcL (1.6-8.9); Platelet Count 274 K/mcL (140-400); Red Blood Count 4.74 M/mcL (4.19-5.50); Red Cell Distribution Width 13.6 % (11.5-14.5); Segmented Neutrophils % 87.6 %; White Blood Count 17.8 K/mcL (4.3-11.1)
[2021-04-11 20:26] LABS: Alanine Aminotransferase 49 Units/L (7-52); Albumin/Globulin Ratio 1.3 (1.1-2.2); Alkaline Phosphatase 77 Units/L (34-104); Aspartate Amino Transferase 28 Units/L (13-39); BUN/Creatinine Ratio 15 (6-26); Bilirubin,Total 0.9 mg/dL (0.3-1.0); Blood Urea Nitrogen 18 mg/dL (8-23); Calcium 9.5 mg/dL (8.6-10.3); Carbon Dioxide 27 mEq/L (23-29); Chloride 102 mEq/L (98-107); Globulin 3.2 g/dL (2.4-3.5); Glucose 107 mg/dL (70-105); Osmolality,Calculated 282 (280-300); Potassium 3.8 mEq/L (3.5-5.1); Sodium 135 mEq/L (136-145); Total Protein 7.2 g/dL (6.4-8.9); eGFR For African Americans > 60 (> 60); eGFR For Non-African Americans > 60 (> 60)
[2021-04-11 20:51] LABS: Prolactin 5.24 ng/mL (3.00-14.70)
[2021-04-11] MEDS ORDERED: Piperacillin/Tazobactam 3.375 GM in 0.9 % Sodium Chloride Mini Bag 100 ML IVPB ONE (20:54)
[2021-04-11 21:01] LABS: Bacteria,Urine Few per hpf (None-Few); Bilirubin,Urine Negative (Negative); Blood,Urine Moderate (Negative); Clarity,Urine Turbid (Clear); Color,Urine Yellow (Yellow); Glucose,Urine (UA) Normal (Normal); Ketones,Urine Negative (Negative); Leukocyte Esterase,Urine Large (Negative); Mucus,Urine Few per lpf (None-Few); Nitrite,Urine Negative (Negative); PH,Urine 7.5 pH Units (5.0-8.0); Protein,Urine 100 mg/dL (Neg-Trace); RBC,Urine TNTC per hpf (0-3); Specific Gravity,Urine 1.019 (1.010-1.025); Squamous Epithelial Cell,Urine Few per hpf (None-Few); Urobilinogen,Urine Normal (Normal); WBC,Urine TNTC per hpf (0-3)
[2021-04-11] MEDS ORDERED: Vancomycin 1,250 MG/262.5 ML IV.SOLN IVPB ONE (21:15)
[2021-04-11] MEDS ORDERED: *HR* Enoxaparin 150 MG/ML SYRINGE SQ STA (22:37)
[2021-04-11] MEDS ORDERED: Naloxone 0.4 MG/ML INJ IVP PRN (23:11)
[2021-04-11] MEDS ORDERED: Melatonin 3 MG TABLET PO PRN (23:11)
[2021-04-11] MEDS ORDERED: *HR* FentaNYL (PF) 100 MCG/2 ML VIAL IVP ONE (23:19)
[2021-04-11 23:59] LABS: Influenza A PCR Negative (Negative); Influenza B PCR Negative (Negative); Resp. Syncytial Virus PCR Negative (Negative)
[2021-04-12 00:09] LABS: SARS-CoV-2 by PCR (In House) Negative (Negative)
[2021-04-12 02:18] LABS: Basophils # 0.1 K/mcL (0.0-0.2); Basophils % 0.4 %; Eosinophils # 0.3 K/mcL (0.0-0.6); Eosinophils % 2.3 %; Hematocrit 39.2 % (37.5-50.1); Hemoglobin 12.6 g/dL (12.9-16.9); Immature Granulocytes % 0.4 % (0-4); Lymphocytes # 1.5 K/mcL (0.6-4.6); Lymphocytes % 10.9 %; Mean Corpuscular HGB Conc 32.1 g/dL (31.6-35.5); Mean Corpuscular Hemoglobin 28.8 pg (28.0-33.3); Mean Corpuscular Volume 89.7 fL (83.0-100.0); Mean Platelet Volume 11.6 fL (9.4-12.4); Monocytes # 1.1 K/mcL (0.0-1.3); Monocytes % 7.8 %; Neutrophils # 10.8 K/mcL (1.6-8.9); Platelet Count 261 K/mcL (140-400); Red Blood Count 4.37 M/mcL (4.19-5.50); Red Cell Distribution Width 13.7 % (11.5-14.5); Segmented Neutrophils % 78.2 %; White Blood Count 13.8 K/mcL (4.3-11.1)
[2021-04-12 02:34] LABS: BUN/Creatinine Ratio 15 (6-26); Blood Urea Nitrogen 18 mg/dL (8-23); Carbon Dioxide 27 mEq/L (23-29); Chloride 103 mEq/L (98-107); Glucose 99 mg/dL (70-105); Magnesium 1.9 mg/dL (1.6-2.6); Osmolality,Calculated 282 (280-300); Phosphorous 2.4 mg/dL (2.7-4.5); Potassium 3.8 mEq/L (3.5-5.1); Sodium 135 mEq/L (136-145); eGFR For African Americans > 60 (> 60); eGFR For Non-African Americans > 60 (> 60)
[2021-04-12] MEDS ORDERED: Perflutren Lipid Microsphere 1.3 ML in 0.9 % Sodium Chloride 8.7 ML IVP PRN (08:15)
[2021-04-12] MEDS: Zonisamide 100 MG CAPSULE PO SCH ×2 (08:39→19:56)
[2021-04-12] MEDS: Doxycycline 100 MG CAPSULE PO SCH ×2 (08:39→19:55)
[2021-04-12] MEDS ORDERED: *HR* HYDROcodone/Acet 5/325 mg TABLET PO PRN (08:58)
[2021-04-12] MEDS ORDERED: Furosemide 20 MG/2 ML VIAL IVP ONE (12:47)
[2021-04-12] MEDS ORDERED: *HR* Enoxaparin 80 MG/0.8 ML SYRINGE SQ SCH (13:48)
[2021-04-12] MEDS: cefTRIAXone 1,000 MG in 0.9 % Sodium Chloride 10 ML IVP SCH (15:06)
[2021-04-12] MEDS ORDERED: *HR* Heparin 5,000 UNIT/ML VIAL SQ SCH (18:00)
[2021-04-13 01:37] LABS: Basophils # 0.1 K/mcL (0.0-0.2); Basophils % 0.8 %; Eosinophils # 0.4 K/mcL (0.0-0.6); Hematocrit 39.2 % (37.5-50.1); Hemoglobin 12.3 g/dL (12.9-16.9); Immature Granulocytes % 0.2 % (0-4); Lymphocytes # 1.3 K/mcL (0.6-4.6); Lymphocytes % 15.8 %; Mean Corpuscular HGB Conc 31.4 g/dL (31.6-35.5); Mean Corpuscular Hemoglobin 28.1 pg (28.0-33.3); Mean Corpuscular Volume 89.7 fL (83.0-100.0); Mean Platelet Volume 11.6 fL (9.4-12.4); Monocytes % 11.7 %; Neutrophils # 5.5 K/mcL (1.6-8.9); Platelet Count 258 K/mcL (140-400); Red Blood Count 4.37 M/mcL (4.19-5.50); Red Cell Distribution Width 13.8 % (11.5-14.5); Segmented Neutrophils % 66.5 %; White Blood Count 8.3 K/mcL (4.3-11.1)
[2021-04-13 01:47] LABS: BUN/Creatinine Ratio 15 (6-26); Blood Urea Nitrogen 19 mg/dL (8-23); Calcium 8.5 mg/dL (8.6-10.3); Carbon Dioxide 27 mEq/L (23-29); Chloride 104 mEq/L (98-107); Glucose 110 mg/dL (70-105); Osmolality,Calculated 285 (280-300); Phosphorous 2.5 mg/dL (2.7-4.5); Potassium 3.8 mEq/L (3.5-5.1); Sodium 136 mEq/L (136-145); eGFR For African Americans > 60 (> 60); eGFR For Non-African Americans 58 (> 60)
[2021-04-13] MEDS: Doxycycline 100 MG CAPSULE PO SCH (07:48)
[2021-04-13] MEDS: Zonisamide 100 MG CAPSULE PO SCH ×2 (07:49→20:52)
[2021-04-13] MEDS: cefTRIAXone 1,000 MG in 0.9 % Sodium Chloride 10 ML IVP SCH (15:52)
[2021-04-13] MEDS: Doxycycline 100 MG in 0.9 % Sodium Chloride Mini Bag 100 ML IVPB SCH (18:23)
[2021-04-14 04:41] LABS: Basophils # 0.1 K/mcL (0.0-0.2); Eosinophils # 0.5 K/mcL (0.0-0.6); Hemoglobin 13.5 g/dL (12.9-16.9); Immature Granulocytes % 0.7 % (0-4); Lymphocytes # 1.5 K/mcL (0.6-4.6); Lymphocytes % 15.1 %; Mean Corpuscular HGB Conc 32.1 g/dL (31.6-35.5); Mean Corpuscular Hemoglobin 28.8 pg (28.0-33.3); Mean Corpuscular Volume 89.6 fL (83.0-100.0); Mean Platelet Volume 11.2 fL (9.4-12.4); Monocytes # 0.8 K/mcL (0.0-1.3); Monocytes % 8.3 %; Platelet Count 301 K/mcL (140-400); Red Blood Count 4.69 M/mcL (4.19-5.50); Red Cell Distribution Width 13.5 % (11.5-14.5); Segmented Neutrophils % 69.9 %; White Blood Count 10.1 K/mcL (4.3-11.1)
[2021-04-14 05:00] LABS: BUN/Creatinine Ratio 18 (6-26); Blood Urea Nitrogen 22 mg/dL (8-23); Carbon Dioxide 25 mEq/L (23-29); Chloride 105 mEq/L (98-107); Glucose 95 mg/dL (70-105); Osmolality,Calculated 287 (280-300); Potassium 3.7 mEq/L (3.5-5.1); Sodium 137 mEq/L (136-145); eGFR For African Americans > 60 (> 60); eGFR For Non-African Americans 60 (> 60)
[2021-04-14] MEDS: Doxycycline 100 MG in 0.9 % Sodium Chloride Mini Bag 100 ML IVPB SCH ×2 (05:30→17:51)
[2021-04-14] MEDS: Zonisamide 100 MG CAPSULE PO SCH ×2 (08:39→21:18)
[2021-04-14] MEDS: Piperacillin/Tazobactam 3.375 GM in 0.9 % Sodium Chloride Mini Bag 100 ML IVPB SCH ×2 (11:13→16:54)
[2021-04-15] MEDS: Piperacillin/Tazobactam 3.375 GM in 0.9 % Sodium Chloride Mini Bag 100 ML IVPB SCH ×2 (00:09→08:10)
[2021-04-15 04:53] LABS: Basophils # 0.1 K/mcL (0.0-0.2); Basophils % 0.9 %; Eosinophils # 0.5 K/mcL (0.0-0.6); Eosinophils % 7.2 %; Hematocrit 39.7 % (37.5-50.1); Hemoglobin 12.8 g/dL (12.9-16.9); Immature Granulocytes % 1.1 % (0-4); Lymphocytes # 1.7 K/mcL (0.6-4.6); Lymphocytes % 22.6 %; Mean Corpuscular HGB Conc 32.2 g/dL (31.6-35.5); Mean Corpuscular Hemoglobin 28.9 pg (28.0-33.3); Mean Corpuscular Volume 89.6 fL (83.0-100.0); Mean Platelet Volume 11.3 fL (9.4-12.4); Monocytes # 0.7 K/mcL (0.0-1.3); Monocytes % 9.2 %; Neutrophils # 4.4 K/mcL (1.6-8.9); Platelet Count 287 K/mcL (140-400); Red Blood Count 4.43 M/mcL (4.19-5.50); Red Cell Distribution Width 13.6 % (11.5-14.5); White Blood Count 7.4 K/mcL (4.3-11.1)
[2021-04-15 05:12] LABS: BUN/Creatinine Ratio 18 (6-26); Blood Urea Nitrogen 23 mg/dL (8-23); Calcium 8.6 mg/dL (8.6-10.3); Carbon Dioxide 24 mEq/L (23-29); Chloride 106 mEq/L (98-107); Glucose 116 mg/dL (70-105); Osmolality,Calculated 289 (280-300); Potassium 3.7 mEq/L (3.5-5.1); Sodium 137 mEq/L (136-145); eGFR For African Americans > 60 (> 60); eGFR For Non-African Americans 56 (> 60)
[2021-04-15] MEDS: Doxycycline 100 MG in 0.9 % Sodium Chloride Mini Bag 100 ML IVPB SCH (05:55)
[2021-04-15] MEDS: Zonisamide 100 MG CAPSULE PO SCH (08:13)
[2021-04-15 11:15] VITALS: BP 121/67; PULSE 73; TEMP 98; O2SAT 95
== END 2021-04-15 17:37 | disposition home or self-care (01) | DRG 383 ==
LOC: EMEROOARM 17:11 → 3ANU 17:11 → SUATTDRO 23:19 → 3ANU 23:48
PROVIDERS: ADMIT Student in an Organized Health Care Education/Training Program; ATTEND Internal Medicine